=== PATIENT | female | born 1960 | race Caucasian/White ===

== ENCOUNTER → 2016-11-26 | Outpatient (CLI) | payer OTHER ==
[~2016-11-26] MED LIST: ASMANEX HF100 MCG/Ac INH; BENADRYL50 MG PO; FLEXERIL10 MG PO; FLOVENT 110 M110 MCG INH; HYDROCODONE BIT1 T11 PO; INCRUSE EL62.5 MCG/A IH; LEVAQUIN750 M1 PO; LEVOFLOXACIN500 MG PO; MOTRIN600 MG PO; MOTRIN800 MG PO; NKHM; NKHM PO; OXYGEN NAS; PREDNICOT20 MG PO; PREDNISONE10 MG PO; PREDNISONE20 M1 PO; PREDNISONE50 MG PO; SPIRIVA -- 3018 MCG PO; TESSALON PERLE200 MG PO; TYLENOL W/CODEI1 TA2 PO; VENTOLIN H0.09 MG/AC INH; VENTOLIN0.09 MG/AC INH; VIBRAMYCIN100 MG PO; VITAMIN D1000 IU PO; ZITHROMAX Z PA250 MG PO
== END | disposition home or self-care (01) ==
LOC: CARD 07:22
DX: I34.0 Nonrheumatic mitral (valve) insufficiency (principal)

== ENCOUNTER → 2016-12-22 | Outpatient (CLI) | payer OTHER | END | disposition home or self-care (01) | LOC: LAB 09:02 | DX: J44.9 Chronic obstructive pulmonary disease, unspecified (principal) ==

== ENCOUNTER 2017-01-08 16:38 | Emergency (ER) | payer OTHER ==
[~2017-01-08] VITALS: Ht 157.4 cm; Wt 55.8 kg
[2017-01-08 16:47] VITALS: BP 138/86
[2017-01-08] MEDS ORDERED: ANORO ELLIPTA1 POW IH (16:48)
[2017-01-08] MEDS ORDERED: CYCLOBENZAPRINE10 MG PO (18:02)
[2017-01-08] MEDS ORDERED: PREDNISONE10 MG PO (18:02)
== END 2017-01-08 18:11 | disposition home or self-care (01) ==
LOC: ED 16:38
DX: S16.1XXA Strain of muscle, fascia and tendon at neck level, initial encounter (principal); R51 Headache; F17.200 Nicotine dependence, unspecified, uncomplicated; Z88.1 Allergy status to other antibiotic agents; Z90.49 Acquired absence of other specified parts of digestive tract; V49.9XXA Car occupant (driver) (passenger) injured in unspecified traffic accident, initial encounter; Y93.89 Activity, other specified; Y92.413 State road as the place of occurrence of the external cause; Y99.9 Unspecified external cause status

== ENCOUNTER 2017-08-20 00:47 | Emergency (ER) | payer OTHER ==
[~2017-08-20] VITALS: Ht 157.4 cm; Wt 55.8 kg
[~2017-08-20 00:47] MED LIST changes: +ANORO ELLIPTA1 POW IH; +CYCLOBENZAPRINE10 MG PO
[2017-08-20 00:55] VITALS: BP 132/86
[2017-08-20] MEDS ORDERED: PREDNISONE50 MG PO (01:24)
[2017-08-20] MEDS ORDERED: LEVAQUIN750 M1 PO (01:24)
== END 2017-08-20 01:27 | disposition home or self-care (01) ==
LOC: ED 00:47
DX: J44.1 Chronic obstructive pulmonary disease with (acute) exacerbation (principal); F17.200 Nicotine dependence, unspecified, uncomplicated; Z88.1 Allergy status to other antibiotic agents; Z88.6 Allergy status to analgesic agent; Z79.899 Other long term (current) drug therapy

== ENCOUNTER 2017-10-12 16:09 | Emergency (ER) | payer OTHER ==
[~2017-10-12] VITALS: Ht 157.4 cm; Wt 57.2 kg
[2017-10-12 16:15] VITALS: BP 154/71
== END 2017-10-12 17:53 | disposition home or self-care (01) ==
LOC: ED 16:09
DX: M94.0 Chondrocostal junction syndrome [Tietze] (principal); F17.200 Nicotine dependence, unspecified, uncomplicated; Z88.1 Allergy status to other antibiotic agents; Z88.6 Allergy status to analgesic agent; Z79.899 Other long term (current) drug therapy

== ENCOUNTER 2018-03-13 20:31 | Emergency (ER) | payer OTHER ==
[~2018-03-13] VITALS: Wt 57.2 kg
[2018-03-13 20:37] VITALS: BP 126/69
[2018-03-13] MEDS ORDERED: ANAPROX DS550 MG PO (21:27)
== END 2018-03-13 21:34 | disposition home or self-care (01) ==
LOC: ED 20:31
DX: S92.512A Displaced fracture of proximal phalanx of left lesser toe(s), initial encounter for closed fracture (principal); F17.200 Nicotine dependence, unspecified, uncomplicated; Z88.1 Allergy status to other antibiotic agents; Z88.6 Allergy status to analgesic agent; Z79.899 Other long term (current) drug therapy; W55.12XA Struck by horse, initial encounter; Y93.01 Activity, walking, marching and hiking; Y92.89 Other specified places as the place of occurrence of the external cause; Y99.8 Other external cause status

== ENCOUNTER 2018-07-17 14:32 | Inpatient (IN) | payer OTHER ==
[~2018-07-17] VITALS: Ht 154.9 cm; Wt 51.0 kg
--- NOTE | ~2018-07-17 | EKG ---
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
--- NOTE | ~2018-07-17 | PR ---
[place], [place] PROGRESS NOTE NAME: JACKY AGUILA UNIT #: [id number] ROOM: 408 DOCTOR: BALBINA RICE MD,MAGUI BIRTHDATE: [birth year] DOS: 07/19/2018 PULMONARY PROGRESS NOTE SUBJECTIVE: The patient noted comfortable at this time, resting on the bed. She was noticed with continued improvement in the respiratory symptoms progressively. She denies symptoms of fever or chills. She denies symptoms of hemoptysis, nausea, vomiting, or diarrhea. OBJECTIVE: VITAL SIGNS: The vital signs of the patient, which have been recorded shows the temperature noted as normal, the respiratory rate of the patient recorded as 20, heart rate is 71, and blood pressure is 93/57. Pulse ox saturation on room air was 94% saturation. HEENT: On examination, head was atraumatic. Eyes nonicterus. NECK: Supple. CARDIOVASCULAR SYSTEM: S1, S2 is audible. LUNGS: Without any wheeze or crackles. ABDOMEN: Soft, nontender. EXTREMITIES: No edema. LABORATORY DATA: CBC, WBC count is 18.6. IMPRESSION: Leukocytosis, most likely due to corticosteroids; resolving acute exacerbation of chronic obstructive pulmonary disease, and acute tracheobronchitis progressively. PLAN OF TREATMENT: Consideration for home discharge from the pulmonary standpoint. Outpatient followup to be established post-discharge. She missed her previous appointment. She was not seen in the office for the past several months. MAGUI MORTENSEN MD CM:PNTRANS [id number] MAGUI RICE MD 07/20/18 0148 interface
--- NOTE | ~2018-07-17 | CON ---
[place], [place] REPORT OF CONSULTATION NAME: JACKY AGUILA UNIT #: [id number] ROOM: 408 DOCTOR: BALBINA RICE MDMAGUI BIRTHDATE: [birth year] DOS: 07/18/2018 PULMONARY CONSULTATION, EVALUATION AND MANAGEMENT REASON FOR CONSULTATION: For assessment of COPD. HISTORY OF PRESENT ILLNESS: This is a 58-year-old white female patient with past medical history of COPD. The patient presented to the hospital as she had developed increased respiratory symptom for the past 3 days. Her symptoms started nasal congestion, postnasal drainage. Later, she developed significant cough with chest congestion with sputum expectoration, which is described in different colors including the face. Shortness of breath is also associated with the symptoms and wheezing. Tightness in the chest reported with symptoms of chest pain. She has been assessed in the Emergency Room and hospitalized on 07/17/2018 for the medical management exacerbation of COPD. The patient stated her symptoms have been improving gradually since hospitalization. REVIEW OF SYSTEMS: CONSTITUTIONAL: Complaining of fatigue and fever, but there were no chills. EYES: Denies any burning, redness, or tenderness. EARS, NOSE, THROAT SYMPTOMS: Denies sore throat, hoarseness, otalgia, postnasal drainage or epistaxis. CARDIOVASCULAR: Denies anginal pain, edema or pain in the lower extremities. GASTROINTESTINAL: The patient reported symptoms of nausea, vomiting one time at home, which has resolved. There were no symptoms of hematemesis, melena, hematochezia, or dysphagia reported. GENITOURINARY: No dysuria, suprapubic pain, or hematuria. MUSCULOSKELETAL: No acute joint pain, redness, or tenderness. SKIN: Denies lesions or rashes. CENTRAL NERVOUS SYSTEM: No dizziness, headache, diplopia, or syncopal episodes. Remaining systems were reviewed. They were noted all negative. PAST MEDICAL HISTORY: This patient was known with history of: 1. COPD. 2. Chronic hypoxic respiratory failure, use of oxygen 2 liter nasal cannula. PAST SURGICAL HISTORY: Noted for; 1. Skin graft. 2. . 3. Cholecystectomy. 4. Abdominoplasty. SOCIAL HISTORY: The patient lives at home. Denies history of alcohol use or illicit drug use. She has been known with history of tobacco use. FAMILY HISTORY: The patient's father of a suicide. Mother from unknown cancer. HOME MEDICATIONS: Listed to self or Ventolin HFA inhaler, vitamin D, Flexeril [place], [place] REPORT OF CONSULTATION NAME: JACKY AGUILA UNIT #: [id number] ROOM: [facility] DOCTOR: BALBINA RICE MD,MAGUI BIRTHDATE: [birth year] and naproxen. DRUG ALLERGIES: THE PATIENT REPORTED ALLERGIES TO: 1. AMOXICILLIN. 2. IBUPROFEN. PHYSICAL EXAMINATION: GENERAL: This is a 58-year-old white female who has been noted currently awake and alert at this time without any acute distress. VITAL SIGNS: Height were recorded as 5 feet 1 inch, weight of 112 pounds, BMI 21 on admission. Vital signs are normal temperature. The respiratory rate of 16-20, heart rate of 62-87, blood pressure 86/50 noted admission, later on 96/52. Pulse oxygen saturation on 3 liters 91% saturation on room air and on admission 89% saturation. HEENT: Head was atraumatic. Eyes nonicterus. CARDIOVASCULAR SYSTEM: S1, S2 audible. LUNGS: Moderate general reduction in breath sounds with expiratory wheezing without any crackles. ABDOMEN: Soft, nontender. Bowel sounds present. EXTREMITIES: Without any acute edema. VISIBLE SKIN: No lesions or rashes. MUSCULOSKELETAL: Without acute deformities. CENTRAL NERVOUS SYSTEM: Cranial nerves 2-12 intact. LABORATORY DATA: CBC yesterday on admission of WBC count 14.7, remaining CBC normal. CBC this morning: WBC count decreased to 11.1, hemoglobin 11.0, hematocrit 35.6. The PT/INR was noted as normal. CMP this morning; normal BUN and creatinine. Potassium 3.4, CO2 of 34 on admission. BMP this morning CO2 32. Remaining electrolytes were normal. Troponin was normal yesterday. Chest x-ray one-view that was done reviewed from the faxed images somewhat hyperinflated lungs. The patient was noted without any acute visible pulmonary infiltration. IMPRESSION: 1. The patient will be currently admitted to the hospital with history of chronic hypoxic respiratory failure with acute exacerbation of chronic obstructive pulmonary disease with possibility of viral infection to be considered. 2. History of nicotine abuse. PLAN OF MANAGEMENT: The patient is receiving Solu-Medrol at this time b.i.d. dose was noted 40 mg and bronchodilators. Continue antibiotics. Monitor respiratory status. Obtain a PA lateral chest x-ray for further clear picture of the lateral view of the lower lobe to exclude any pneumonia. Usual care. All other supportive, plan of management and therapies. Other additional treatment changes will be ordered after the assessment of any new lab data and chest x-ray as necessary. Continue oxygen supplementation, maintain oxygen saturation 90% or greater. Ordered the sputum for Gram stain and culture as well. [place], [place] REPORT OF CONSULTATION NAME: JACKY AGUILA UNIT #: [id number] ROOM: [facility] DOCTOR: BALBINA RICE MD,MAGUI BIRTHDATE: [birth year] Thanks for allowing me to participate in the care of this patient. MAGUI MORTENSEN MD CM:CONSTR:REPORT OF CONSULTATION 0840 07/18/18 1138 interface
[2018-07-17 14:32] VITALS: BP 99/53
[~2018-07-17 14:32] MED LIST changes: +ANAPROX DS550 MG PO
[2018-07-17 15:07] LABS: BASO # 0.1 10*3/uL (0.0-0.1); BASO % 0.3 % (0.0-1.0); EOS # 0.1 10*3/uL (0.0-0.4); EOS % 0.3 % (1.0-4.0); HEMATOCRIT 43.7 % (37.0-47.0); HEMOGLOBIN 14.1 g/dl (12.0-16.0); LYMPH # 1.3 10*3/uL (1.3-4.4); LYMPH % 8.7 % (27.0-41.0); MEAN CELL VOLUME 93.8 fl (81.0-99.0); MEAN CORPUSCULAR HGB 30.3 pg (27.0-31.0); MEAN CORPUSCULAR HGB CONC 32.3 g/dl (33.0-37.0); MONO # 1.3 10*3/uL (0.1-1.0); MONO % 8.5 % (3.0-9.0); NEUT % 81.9 % (47.0-73.0); PLATELET COUNT AUTOMATED 381 10*3/uL (130-400); RED BLOOD COUNT 4.66 10*6/uL (4.10-5.10); RED CELL DISTRI WIDTH 13.2 % (0-14.5); WHITE BLOOD COUNT 14.7 10*3/uL (4.8-10.8)
[2018-07-17 15:22] LABS: ALBUMIN 2.9 gm/dl (3.1-4.5); ALKALINE PHOSPHATASE 334 U/L (45-117); BUN 8 mg/dl (7-24); CHLORIDE 96 mmol/L (98-107); CREATININE 0.73 mg/dL (0.55-1.02); POTASSIUM 3.4 mmol/L (3.5-5.1); SGOT/AST 60 IU/L (3-35); SGPT/ALT 64 U/L (12-78); SODIUM 137 mmol/L (136-145)
[2018-07-17 15:23] LABS: TROPONIN I < 0.015 ng/ml (<0.045)
[2018-07-17] MEDS ORDERED: VIBRAMYCIN100 MG PO (16:23)
[2018-07-17] MEDS ORDERED: MECLIZINE HCL25 M2 PO (16:23)
[2018-07-17] MEDS ORDERED: DELTASONE20 M1 PO (16:23)
[2018-07-17 16:49] VITALS: BP 86/50
[2018-07-17 16:57] VITALS: BP 99/63
[2018-07-17 17:57] VITALS: BP 99/60
[2018-07-17 20:00] VITALS: BP 110/52
[2018-07-18] VITALS: BP 96/52
[2018-07-18 06:34] LABS: MEAN CORPUSCULAR HGB CONC 30.9 g/dl (33.0-37.0); MEAN PLATELET VOLUME 9.6 fl (9.6-12.3); PLATELET COUNT AUTOMATED 319 10*3/uL (130-400); RED BLOOD COUNT 3.67 10*6/uL (4.10-5.10); RED CELL DISTRI WIDTH 13.2 % (0-14.5); WHITE BLOOD COUNT 11.1 10*3/uL (4.8-10.8)
[2018-07-18 06:42] LABS: HEMATOCRIT 35.6 % (37.0-47.0)
[2018-07-18 06:55] LABS: BUN 7 mg/dl (7-24); CHLORIDE 103 mmol/L (98-107); CHOLESTEROL 146 mg/dL (<200); CREATININE 0.57 mg/dL (0.55-1.02); PHOSPHOROUS 3.1 mg/dL (2.5-4.9); PLATELET SUFFICIENCY NORMAL (NORMAL); POTASSIUM 3.7 mmol/L (3.5-5.1); SODIUM 142 mmol/L (136-145); TOTAL CELLS COUNTED 100 #CELLS; TRIGLYCERIDES 59 mg/dl (<150); VLDL CHOLESTEROL 12 mg/dL (6-40)
[2018-07-18 07:03] LABS: HDL CHOLESTEROL 49 mg/dl (40-60); LDL CHOLESTEROL 85 mg/dL (9-159)
[2018-07-18 08:00] VITALS: BP 110/58
[2018-07-18 11:03] LABS: VITAMIN D, 25-HYDROXY 6.7 ng/mL (30-100)
[2018-07-18 12:00] VITALS: BP 96/52
[2018-07-18 16:00] VITALS: BP 92/48
[2018-07-18 20:00] VITALS: BP 92/51
[2018-07-19] VITALS: BP 96/56
[2018-07-19 06:38] LABS: BASO % 0.1 % (0.0-1.0); HEMATOCRIT 33.5 % (37.0-47.0); HEMOGLOBIN 10.3 g/dl (12.0-16.0); LYMPH # 1.8 10*3/uL (1.3-4.4); LYMPH % 9.6 % (27.0-41.0); MEAN CELL VOLUME 96.3 fl (81.0-99.0); MEAN CORPUSCULAR HGB 29.6 pg (27.0-31.0); MEAN CORPUSCULAR HGB CONC 30.7 g/dl (33.0-37.0); MEAN PLATELET VOLUME 9.3 fl (9.6-12.3); MONO # 0.9 10*3/uL (0.1-1.0); MONO % 4.9 % (3.0-9.0); NEUT # 15.7 10*3/uL (2.3-7.9); NEUT % 84.6 % (47.0-73.0); PLATELET COUNT AUTOMATED 343 10*3/uL (130-400); RED BLOOD COUNT 3.48 10*6/uL (4.10-5.10); RED CELL DISTRI WIDTH 13.6 % (0-14.5); WHITE BLOOD COUNT 18.6 10*3/uL (4.8-10.8)
[2018-07-19 12:00] VITALS: BP 93/57
[2018-07-19] MEDS ORDERED: LEVOFLOXACIN500 MG PO (12:55)
[2018-07-19] MEDS ORDERED: PREDNISONE10 MG PO (12:55)
[2018-07-19] MEDS ORDERED: VITAMIN D50000 UNIT PO (12:55)
== END 2018-07-19 13:22 | disposition home or self-care (01) | DRG 871 ==
LOC: ED 14:32 → EDHOLD 16:29 → 4E 16:29
PROVIDERS: Internal Medicine; Physician Assistant; Student in an Organized Health Care Education/Training Program
DX: A41.9 Sepsis, unspecified organism (principal); J18.9 Pneumonia, unspecified organism; J44.0 Chronic obstructive pulmonary disease with (acute) lower respiratory infection; E87.3 Alkalosis; E44.0 Moderate protein-calorie malnutrition; J96.11 Chronic respiratory failure with hypoxia; J44.1 Chronic obstructive pulmonary disease with (acute) exacerbation; E87.6 Hypokalemia; E83.41 Hypermagnesemia; J44.9 Chronic obstructive pulmonary disease, unspecified; R74.0 Nonspecific elevation of levels of transaminase and lactic acid dehydrogenase [LDH]; Z88.1 Allergy status to other antibiotic agents; Z88.9 Allergy status to unspecified drugs, medicaments and biological substances; Z90.49 Acquired absence of other specified parts of digestive tract; Z98.891 History of uterine scar from previous surgery; Z98.51 Tubal ligation status; Z80.8 Family history of malignant neoplasm of other organs or systems; Z83.3 Family history of diabetes mellitus; Z71.6 Tobacco abuse counseling; Z87.81 Personal history of (healed) traumatic fracture; Z68.21 Body mass index [BMI] 21.0-21.9, adult

== ENCOUNTER 2018-10-13 18:06 | Inpatient (IN) | payer OTHER ==
[~2018-10-13] VITALS: Ht 157.5 cm; Wt 52.8 kg
--- NOTE | ~2018-10-13 | PR ---
[place], [place] PROGRESS NOTE NAME: JACKY AGUILA UNIT #: [id number] ROOM: 503 DOCTOR: BALBINA RICE MD,MAGUI BIRTHDATE: [birth year] DOS: 10/15/2018 SUBJECTIVE: She continued to do well. The patient stated ambulated and not using oxygen supplementation. Respiratory symptoms have improved significantly including cough, wheezing and shortness of breath. Denies symptoms of chest pain. OBJECTIVE: VITAL SIGNS: Normal temperature, respiratory rate 20, heart rate of 89, and blood pressure 128/62. The pulse ox saturation on room air 92% saturation at rest was recorded. HEENT: Head was atraumatic. Eyes nonicterus. NECK: Supple. CARDIOVASCULAR: S1, S2 is audible. LUNGS: The patient was noted without any wheezing or crackles at the present time. ABDOMEN: Soft and nontender. Bowel sounds present. EXTREMITIES: Without any acute edema. IMPRESSION: The patient who has been currently noted with progressive resolution of acute exacerbation of chronic obstructive pulmonary disease and acute bronchitis of the patient's current medical management in the last 24 hours. PLAN OF MANAGEMENT: The patient could be discharged home for the current medical management, plan of care at this time. The leukopenia, which was noted has resolved, currently noted with the leukocytosis actually. Nicotine dependence. Plan of treatment, abstinence tobacco use. The patient was recommended outpatient followup to be scheduled. Tapering dose of prednisone, oral antibiotic could be used. MAGUI MORTENSEN MD CM:PNTRANS [id number] MAGUI RICE MD 10/21/18 0855 interface
--- NOTE | ~2018-10-13 | EKG ---
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
--- NOTE | ~2018-10-13 | CON ---
[place], [place] REPORT OF CONSULTATION NAME: JACKY AGUILA UNIT #: [id number] ROOM: 503 DOCTOR: BALBINA RICE MDMAGUI BIRTHDATE: [birth year] DOS: 10/14/2018 PULMONARY CONSULTATION EVALUATION AND MANAGEMENT CONSULTATION REQUESTED BY: Hospitalist Service. REASON FOR CONSULTATION: Assessment of current acute exacerbation of chronic obstructive pulmonary disease. HISTORY OF PRESENT ILLNESS: A 58-year-old white female patient with known history of COPD which were noted as severe with chronic hypoxic respiratory failure, use of oxygen supplementation 3 liters nasal cannula. She presented to the hospital and admitted to the hospital on 10/13/2018. She started with having symptoms of cough, chest congestion for the past 3 to 4 days. The symptoms have been noted gradually progression. The patient started using nebq-[id number]-xunjyvp medication of Mucinex, stating taking her other medication. She stated that she has not been smoking cigarettes. Cough has been noted with excessive chest congestion with minimal sputum expectoration, tightness in the chest were reported with increased wheezing, shortness of breath occurring with pdni-du-zndveehv exertional activities. She has been admitted to the hospital and currently being managed for acute exacerbation of COPD, has been receiving intravenous steroids, nebulized bronchodilators and oxygen supplementation as well as the antibiotics. She has reported partial reduction in respiratory symptoms since hospitalization. REVIEW OF SYSTEMS: CONSTITUTIONAL: Fatigue and tiredness reported. Denies symptoms of fever or chills. EYES: Denies burning, redness, or tenderness. EARS, NOSE, THROAT SYMPTOMS: Denies sore throat, hoarseness, otalgia, postnasal drainage or epistaxis. CARDIOVASCULAR: Denies angina pain, edema, pain of the lower extremity. GASTROINTESTINAL: Denies dysphagia, nausea, vomiting, diarrhea, abdominal pain, hematemesis, melena, or hematochezia. GENITOURINARY: Denies dysuria, suprapubic pain, urinary incontinence, or flank pain. MUSCULOSKELETAL: No acute joint pain, redness, or tenderness. SKIN: No lesions or rashes reported. CENTRAL NERVOUS SYSTEM: No dizziness, headache, diplopia, syncopal episode. Remaining systems were reviewed. They were noted all negative. PAST MEDICAL HISTORY: 1. Advanced COPD. 2. Chronic hypoxic respiratory failure, use of oxygen supplementation. 3. History of nicotine dependence. PAST SURGICAL HISTORY: 1. Skin graft from valle. 2. . [place], [place] REPORT OF CONSULTATION NAME: JACKY AGUILA UNIT #: [id number] ROOM: [facility] DOCTOR: BALBINA RICE MDMAGUI BIRTHDATE: [birth year] 3. Cholecystectomy. 4. Abdominoplasty. SOCIAL HISTORY: She lives at home. Denies history of alcohol use, illicit drug use. Tobacco use, started teenager, smoked about half to a pack of cigarettes per day, stating nonsmoker since 2017. Denies any alcohol or illicit drug use. FAMILY HISTORY: The patient's father from suicide. Mother , complications of unknown cancer. MEDICATIONS: The medications which has been administered this morning as the use of Lovenox for DVT prophylaxis, Solu-Medrol 60 mg b.i.d., Protonix 40 mg daily, Mucinex 1200 mg p.o. b.i.d., nicotine replacement patches 14 mg to the skin daily, DuoNeb q.4 hours, Zithromax and IV Rocephin use. Other p.o. medication were also used. DRUG ALLERGIES: REPORTED ALLERGIES TO: AMOXICILLIN AND IBUPROFEN BOTH CAUSING HIVES AND OTHER GI ISSUES. PHYSICAL EXAMINATION: GENERAL: This is a 58-year-old white female currently noted sitting on the bed without any distress. Height of 5 feet 2 inches, weight 116 pounds, BMI 21.3. VITAL SIGNS: Temperature normal since admission last 24 hours, respiratory rate range between 24-20, heart rate 74-107, blood pressure of 88/54-101/49. Pulse oxygen saturation recorded on 3 liters nasal cannula 95% saturation. HEENT: Head was atraumatic. Eyes nonicterus. NECK: Supple. CARDIOVASCULAR: S1, S2 audible. LUNGS: Noted moderate severe reduction in breath sounds bilaterally with diffuse expiratory wheezing without any crackles. ABDOMEN: Flat, soft, nontender. Bowel sounds present. EXTREMITIES: Without edema, clubbing, cyanosis. MUSCULOSKELETAL: Without any acute deformities. CENTRAL NERVOUS SYSTEM: The patient's cranial nerves 2-12 intact. LABORATORY DATA: CBC that was done yesterday was noted as normal CBC. The lactic acid yesterday noted normal. CMP that was done yesterday noted normal BUN and creatinine. CO2 of 35. AST 84, ALT 110, alkaline phosphatase at 283. Influenza A and B, nasal washing antigens were negative. CBC on 10/14/2018. The patient's WBC count 3.9, hemoglobin and hematocrit normal, platelet count were normal. PT and PTT were normal. The CMP repeated again this morning as AST, ALT and alkaline phosphatase are noted all abnormals at this time. One view chest x-ray that was done on admission was noted with changes, hyperinflation, chronic obstructive pulmonary disease without any acute visible pulmonary infiltrates. IMPRESSION: 1. The patient will be currently admitted to the hospital noted with acute exacerbation of chronic obstructive pulmonary disease, acute bronchitis, may be [place], [place] REPORT OF CONSULTATION NAME: JACKY AGUILA UNIT #: [id number] ROOM: [facility] DOCTOR: BALBINA RICE MD,MAGUI BIRTHDATE: [birth year] viral in origin with mild leukopenia as well as a trigger. 2. History of tobacco use, stated none tobacco use at this time for the past couple of months or so. 3. Leukopenia, most likely secondary to current acute infection etiology. 4. Abnormal LFTs. At this time, the etiology was unclear. Rule out alpha-1 antitrypsin deficiency as an outpatient assessment. PLAN OF MANAGEMENT: Continuation of the current dose of corticosteroids as administered. Continue bronchodilators and antibiotic. Obtain the sputum for Gram stain and culture as well. Continue Mucinex. Abstinence of tobacco use, the patient's counseling was done. Monitor respiratory status to make any additional change in the treatment. Discontinue antibiotic for the patient if the culture would be noted negative. Ordered a respiratory virus profile. Thank you for allowing me to participate in the care of this patient. MAGUI MORTENSEN MD CM:CONSTR:REPORT OF CONSULTATION 1147 10/15/18 0014 interface
[~2018-10-13 18:06] MED LIST changes: +DELTASONE20 M1 PO; +MECLIZINE HCL25 M2 PO; +VITAMIN D50000 UNIT PO
[2018-10-13 18:09] VITALS: BP 130/75
[2018-10-13 18:35] LABS: BASO % 0.6 % (0.0-1.0); EOS % 0.5 % (1.0-4.0); HEMATOCRIT 47.5 % (37.0-47.0); HEMOGLOBIN 15.2 g/dl (12.0-16.0); LYMPH # 1.3 10*3/uL (1.3-4.4); LYMPH % 20.8 % (27.0-41.0); MEAN CORPUSCULAR HGB 30.4 pg (27.0-31.0); MEAN PLATELET VOLUME 8.7 fl (9.6-12.3); MONO # 0.7 10*3/uL (0.1-1.0); MONO % 11.2 % (3.0-9.0); NEUT # 4.3 10*3/uL (2.3-7.9); NEUT % 66.7 % (47.0-73.0); PLATELET COUNT AUTOMATED 308 10*3/uL (130-400); RED CELL DISTRI WIDTH 13.6 % (0-14.5); WHITE BLOOD COUNT 6.4 10*3/uL (4.8-10.8)
[2018-10-13 18:55] LABS: ALBUMIN 3.3 gm/dl (3.1-4.5); ALKALINE PHOSPHATASE 283 U/L (45-117); BUN 7 mg/dl (7-24); CHLORIDE 95 mmol/L (98-107); CREATININE 0.81 mg/dL (0.55-1.02); POTASSIUM 4.4 mmol/L (3.5-5.1); SGOT/AST 84 IU/L (3-35); SGPT/ALT 110 U/L (12-78); SODIUM 136 mmol/L (136-145); TOTAL PROTEIN 7.9 gm/dL (6.4-8.2)
[2018-10-13 18:59] LABS: TROPONIN I < 0.015 ng/ml (<0.045)
--- NOTE | 2018-10-13 19:00 | NUR ---
NURSE TO NURSE REPORT TAKEN FROM ELIAZAR ALCANTAR. PATIENT ALERT/ORIENTED IN EXAM ROOM.
[2018-10-13 20:00] VITALS: BP 101/49
[2018-10-13 20:15] VITALS: BP 101/49
--- NOTE | 2018-10-13 20:15 | NUR ---
A 58, admitted to , under the services of ZOË Ferreira DO with a diagnosis of SEPSIS; PNEUMONITIS. Chief complaint is SOB AT HOME; COUGH; SMOKES 1/2 PPD; 02 DEPENDENT 3 LITERS. Patient arrived via stretcher from ER. Monitor applied. Initial assessment completed. Vital signs taken and recorded. ZOË FERREIRA DO notified of admission to the unit. Orders received. See assessment for past medical history, medications and allergies. Patient and/or family oriented to unit. [facility] policy reviewed. Clothing/patient valuable form completed. ABNER BAEZ
--- NOTE | 2018-10-13 20:25 | NUR ---
DR. SILVA HERE TO SEE PT. TO EXAMINE & DISCUSS PLAN OF CARE. PT. VERBALIZES UNDERSTANDING. PRESENT.
--- NOTE | 2018-10-13 21:19 | NUR ---
CONSULTED DR. MORTENSEN; WILL SEE PT. TOMORROW.
[2018-10-13] MEDS ORDERED: STIOLTO RESPIMAT4 GM INH (22:38)
[2018-10-14] VITALS (8 sets, daily range): BP systolic 80–102; BP diastolic 47–68
--- NOTE | 2018-10-14 00:11 | NUR ---
CALLED DR. SAINZ REGARDING PATIENT'S BLOOD PRESSURE; SEE VITAL SIGNS.
--- NOTE | 2018-10-14 00:35 | NUR ---
DR. SILVA ON FLOOR; ORDER TO RECHECK BLOOD PRESSURE IN ONE HOUR.
--- NOTE | 2018-10-14 04:00 | NUR ---
RECHECKED BLOOD PRESSURE; SEE VITAL SIGNS. DR. SAINZ MADE AWARE. PT. RESTING QUIETLY; VOICES NO C/O. CALL LIGHT WITHIN REACH.
--- NOTE | 2018-10-14 05:50 | NUR ---
RESTING IN BED WITH EYES CLOSED. AUDIBLY WHEEZY; PULSE OX 94%. PT. VOICES NO C/O AT THIS TIME. WILL CONTINUE TO MONITOR. CALL LIGHT WITHIN REACH.
[2018-10-14 06:10] LABS: BASO % 0.3 % (0.0-1.0); LYMPH # 0.8 10*3/uL (1.3-4.4); LYMPH % 19.7 % (27.0-41.0); MEAN CELL VOLUME 96.3 fl (81.0-99.0); MEAN CORPUSCULAR HGB 30.1 pg (27.0-31.0); MEAN CORPUSCULAR HGB CONC 31.3 g/dl (33.0-37.0); MEAN PLATELET VOLUME 8.9 fl (9.6-12.3); MONO # 0.1 10*3/uL (0.1-1.0); MONO % 2.1 % (3.0-9.0); NEUT % 77.6 % (47.0-73.0); PLATELET COUNT AUTOMATED 234 10*3/uL (130-400); RED BLOOD COUNT 4.05 10*6/uL (4.10-5.10); RED CELL DISTRI WIDTH 13.4 % (0-14.5); WHITE BLOOD COUNT 3.9 10*3/uL (4.8-10.8)
[2018-10-14 06:18] LABS: HEMOGLOBIN 12.2 g/dl (12.0-16.0)
[2018-10-14 06:31] LABS: ALBUMIN 2.6 gm/dl (3.1-4.5); BUN 9 mg/dl (7-24); CHLORIDE 103 mmol/L (98-107); POTASSIUM 4.3 mmol/L (3.5-5.1); SGOT/AST 55 IU/L (3-35); SGPT/ALT 86 U/L (12-78); SODIUM 138 mmol/L (136-145)
[2018-10-14 06:32] LABS: ACT PARTIAL THROMBO TIME 26.7 SECONDS (20.8-31.5); INTERNATIONAL NORM RATIO 0.9 (2.0-3.5)
[2018-10-14 06:42] LABS: ALKALINE PHOSPHATASE 223 U/L (45-117); FREE T4 1.25 ng/dl (0.76-1.46); THYROID STIM HORMONE (HS) 0.228 uIU/ml (0.358-4.75); TOTAL PROTEIN 6.2 gm/dL (6.4-8.2)
--- NOTE | 2018-10-14 07:59 | NUR ---
PHYSICAL THERAPY Nursing screen received. PT orders also received. Thank you. Aida Knight,PT
--- NOTE | 2018-10-14 08:00 | NUR ---
DR WAGGONER NOTIFIED OF BP. NO NEW ORDERS
--- NOTE | 2018-10-14 09:00 | NUR ---
Boat Patcher Plastic in to talk to patient. Patient states lives at home with her . There are 15 steps in the home. Physician: Family medicine in [place] Pharmacy: [facility] Home health services: none Patient's level of ADLs: INDEPENDENT Patient has working utilities: yes DME: O2 @ 3L [place] , O2 supplier [facility] Follow-up physician's appointment after d/c: will be made by the hospitalist nurse director upon discharge Does patient want to access PORTAL?: no Discharge plan discussed with patient. She lives at home with her . She is independent in her ADLs and ambulation. Discussed home health care services and she denies any home needs at this time. When medically stable she will be discharged to home. JESSICA AMEZQUITA
--- NOTE | 2018-10-14 14:01 | NUR ---
PHYSICAL THERAPY PAtient reports she has no PT skills/needs. PAtient reportd she is 100 % (I0 functional mobility. PAtient Requests d/c PT orders. Thank you for this referral. Aida Knight,PT
--- NOTE | 2018-10-14 15:34 | NUR ---
Nursing screen received and chart review completed. Patient reports to PT when she refused evaluation, that she is independent in all activites and does not require any therapy. No further OT indicated at this time. Svetlana Hassan OTR/l
--- NOTE | 2018-10-14 19:20 | NUR ---
REPORT OBTAINED FROM DAY SHIFT RN. INITIAL ASSESSMENT COMPLETED - SEE SHIFT ASSESSMENT SCREEN. PT IS RESTING IN BED AT THIS TIME WITH FAMILY AT THE BEDSIDE. BAG 4 OF 0.9%NS IS RUNNING AT 100mL/HR INTO LEFT AC IV WITH NO PROBLEM. SHE IS NSR ON THE MONITOR WITH A HEART RATE IN THE 90'S. SHE VOICES NO COMPLAINTS OR CONCERNS AT THIS TIME. WILL CONTINUE TO MONITOR PATIENT.
[2018-10-15] VITALS: BP 116/63
--- NOTE | 2018-10-15 04:35 | NUR ---
PT IS LYING AWAKE IN BED AT THIS TIME. SHE DENIES ANY PAIN OR DISCOMFORT. RESPIRATIONS ARE EASY AND NONLABORED ON 3L NC. SHE IS NSR ON THE MONITOR WITH A HEART RATE IN THE 80'S. SHE VOICES NO CONCERNS AT THIS TIME. BED IS LOCKED AND IN THE LOWEST POSITION, CALL LIGHT IS WITHIN REACH. WILL CONTINUE TO MONITOR.
[2018-10-15 06:17] LABS: BASO % 0.1 % (0.0-1.0); HEMOGLOBIN 11.6 g/dl (12.0-16.0); LYMPH # 1.6 10*3/uL (1.3-4.4); LYMPH % 13.2 % (27.0-41.0); MEAN CELL VOLUME 95.9 fl (81.0-99.0); MEAN CORPUSCULAR HGB 30.1 pg (27.0-31.0); MEAN CORPUSCULAR HGB CONC 31.4 g/dl (33.0-37.0); MEAN PLATELET VOLUME 9.4 fl (9.6-12.3); MONO # 0.6 10*3/uL (0.1-1.0); MONO % 5.1 % (3.0-9.0); NEUT # 10.1 10*3/uL (2.3-7.9); NEUT % 81.2 % (47.0-73.0); PLATELET COUNT AUTOMATED 267 10*3/uL (130-400); RED BLOOD COUNT 3.86 10*6/uL (4.10-5.10); RED CELL DISTRI WIDTH 13.8 % (0-14.5); WHITE BLOOD COUNT 12.4 10*3/uL (4.8-10.8)
[2018-10-15 06:51] LABS: BUN 13 mg/dl (7-24); CHLORIDE 106 mmol/L (98-107); CREATININE 0.62 mg/dL (0.55-1.02); POTASSIUM 3.7 mmol/L (3.5-5.1); SODIUM 141 mmol/L (136-145)
[2018-10-15 08:00] VITALS: BP 128/62; BP 128/80
--- NOTE | 2018-10-15 08:18 | NUR ---
PT C/O TIGHTNESS IN FINGERS. PER DR WAGGONER OK TO STOP IVF.
--- NOTE | 2018-10-15 09:00 | NUR ---
Phlebotomy Services Technician in to see patient. No new needs or request at this time. She denies any home needs. When medically stable she will be discharged to home.
[2018-10-15] MEDS ORDERED: AMINOPHYLLIN200 MG PO (11:32)
[2018-10-15] MEDS ORDERED: ZITHROMAX250 MG PO (11:32)
[2018-10-15] MEDS ORDERED: MUCINEX1200 M1 PO (11:32)
[2018-10-15] MEDS ORDERED: PREDNISONE10 MG PO (11:32)
--- NOTE | 2018-10-15 13:48 | NUR ---
PT DISCHARGED AT THIS TIME. IV REMOVED AND PRESSURE DRESSING APPLIED. VERBALIZED UNDERSTANDING OF DISCHARGE INSTRUCTIONS. HEART MONITOR RETURNED TO FLOOR.
[2018-10-19 00:05] LABS: ADENOVIRUS Negative (Negative); INFLUENZA B Negative (Negative); METAPNEUMOVIRUS Negative (Negative); PARAINFLUENZA 1 Negative (Negative); PARAINFLUENZA 2 Negative (Negative); PARAINFLUENZA 3 Negative (Negative); RHINOVIRUS Negative (Negative); RSV A Positive (Negative); RSV B Negative (Negative)
[2018-10-21 08:13] LABS: INFLUENZA A Negative (Negative)
[2018-11-17] MEDS ORDERED: LEVOFLOXACIN500 MG PO (11:58)
[2018-11-23] MEDS ORDERED: OSTERA TABLET1 EACH PO (21:58)
[2018-11-25] MEDS ORDERED: OXYGEN NAS (12:47)
[2018-11-25] MEDS ORDERED: PREDNISONE10 MG PO (12:48)
[2018-11-25] MEDS ORDERED: DOXYCYCLINE100 M3 PO (12:48)
[2019-04-09] MEDS ORDERED: NORCO 5-325 TA1 EACH PO (08:58)
== END 2018-10-15 13:48 | disposition home or self-care (01) | DRG 871 ==
LOC: ED 18:06 → 5E 19:14 → EDHOLD 19:14 → 5E 19:42
PROVIDERS: Family Medicine; Internal Medicine; Internal Medicine Critical Care Medicine; Nurse Practitioner Family; ADMIT Internal Medicine
DX: A41.9 Sepsis, unspecified organism (principal); J18.9 Pneumonia, unspecified organism; J44.1 Chronic obstructive pulmonary disease with (acute) exacerbation; E44.1 Mild protein-calorie malnutrition; J96.11 Chronic respiratory failure with hypoxia; J44.0 Chronic obstructive pulmonary disease with (acute) lower respiratory infection; I95.9 Hypotension, unspecified; R74.0 Nonspecific elevation of levels of transaminase and lactic acid dehydrogenase [LDH]; F17.210 Nicotine dependence, cigarettes, uncomplicated; E55.9 Vitamin D deficiency, unspecified; J20.9 Acute bronchitis, unspecified; R94.5 Abnormal results of liver function studies; R74.8 Abnormal levels of other serum enzymes; E87.8 Other disorders of electrolyte and fluid balance, not elsewhere classified; Z99.81 Dependence on supplemental oxygen; Z88.1 Allergy status to other antibiotic agents; Z88.6 Allergy status to analgesic agent; Z87.81 Personal history of (healed) traumatic fracture; Z90.49 Acquired absence of other specified parts of digestive tract; Z98.891 History of uterine scar from previous surgery; Z98.51 Tubal ligation status; Z83.3 Family history of diabetes mellitus; Z80.0 Family history of malignant neoplasm of digestive organs; Z79.899 Other long term (current) drug therapy; Z71.6 Tobacco abuse counseling; Z68.21 Body mass index [BMI] 21.0-21.9, adult

== ENCOUNTER → 2018-11-06 | Outpatient (CLI) | payer OTHER ==
[~2018-11-06] MED LIST changes: +AMINOPHYLLIN200 MG PO; +CEPHALEXIN500 M1 PO; +DOXYCYCLINE100 M3 PO; +MUCINEX1200 M1 PO; +NORCO 5-325 TA1 EACH PO; +OSTERA TABLET1 EACH PO; +SEPTDS PO; +STIOLTO RESPIMAT4 GM INH; +ZITHROMAX250 MG PO
== END | disposition home or self-care (01) ==
LOC: MAMMO 07:33
DX: Z12.31 Encounter for screening mammogram for malignant neoplasm of breast (principal)

== ENCOUNTER → 2018-12-11 | Outpatient (CLI) | payer OTHER | END | disposition home or self-care (01) | LOC: MAMMO 12:44 | DX: N63.0 Unspecified lump in unspecified breast (principal) ==

== ENCOUNTER 2019-03-06 21:26 | Emergency (ER) | payer OTHER ==
[~2019-03-06] VITALS: Ht 157.4 cm; Wt 51.7 kg
[~2019-03-06 21:26] MED LIST changes: -CEPHALEXIN500 M1 PO; -NORCO 5-325 TA1 EACH PO; -SEPTDS PO
[2019-03-06 21:31] VITALS: BP 148/97
[2019-03-06] MEDS ORDERED: SEPTDS PO (21:58)
[2019-03-06] MEDS ORDERED: CEPHALEXIN500 M1 PO (21:58)
[2019-04-09] MEDS ORDERED: NORCO 5-325 TA1 EACH PO (08:58)
== END 2019-03-06 22:07 | disposition home or self-care (01) ==
LOC: ED 21:26
DX: D23.72 Other benign neoplasm of skin of left lower limb, including hip (principal); F17.200 Nicotine dependence, unspecified, uncomplicated; Z88.1 Allergy status to other antibiotic agents; Z88.8 Allergy status to other drugs, medicaments and biological substances; Z79.899 Other long term (current) drug therapy; Z90.49 Acquired absence of other specified parts of digestive tract

== ENCOUNTER 2019-07-01 18:21 | Inpatient (IN) | payer OTHER ==
[~2019-07-01] VITALS: Ht 157.4 cm; Wt 51.3 kg
--- NOTE | ~2019-07-01 | PR ---
[place], [place] PROGRESS NOTE NAME: JACKY AGUILA UNIT #: [id number] ROOM: 402 DOCTOR: BALBINA RICE MD,MAGUI BIRTHDATE: [birth year] DOS: 07/03/2019 SUBJECTIVE: The patient noted without any acute distress this morning, resting comfortably on the bed. Not reported any symptoms of fever or chills. The coughing has been subsiding. She has been ambulating in the hallway decreased respiratory symptoms. OBJECTIVE: VITAL SIGNS: Normal temperature, respiratory 20, pulse 92, blood pressure 116/62 recorded. Pulse oxygen saturation recorded as 96% saturation at rest on room air. HEENT: Examination shows head was atraumatic. Eyes nonicterus. NECK: Supple. CARDIOVASCULAR: S1, S2 audible. LUNGS: Without any wheezing or crackles at the present time. ABDOMEN: Soft, nontender. IMPRESSION: Progressive resolution and improvement in acute exacerbation of chronic obstructive pulmonary disease, acute tracheobronchitis, history of nicotine abuse. PLAN OF TREATMENT: The patient will be discharged home on tapering prednisone and the antibiotics. Other medical management per primary care physician as well. Outpatient followup suggested post-discharge. MAGUI MORTENSEN MD CM:PNTRANS [id number] MAGUI RICE MD 07/03/19 1707 interface
--- NOTE | ~2019-07-01 | CON ---
[place], [place] REPORT OF CONSULTATION NAME: JACKY AGUILA UNIT #: [id number] ROOM: 402 DOCTOR: BALBINA RICE MDMAGUI BIRTHDATE: [birth year] DOS: 07/02/2019 PULMONARY CONSULTATION, EVALUATION AND MANAGEMENT CONSULTATION REQUESTED BY: Hospitalist service. REASON FOR CONSULTATION: For assessment of acute exacerbation of COPD. HISTORY OF PRESENT ILLNESS: A 59-year-old white female patient with known history of COPD from the past, presented to the Emergency Room. She has been noted sick for about 1 week. She has been noted increased symptoms of shortness of breath with chest congestion and coughing with small amount of sputum expectoration. She was also reported increased wheezing. The patient has tightness in the chest. There were no symptoms of chest pain. She has been assessed in the Emergency Room on 07/01/2019 and hospitalized for medical management of acute exacerbation of chronic obstructive pulmonary disease. This morning, the patient stated reduction of the respiratory symptoms. However, the resolution was noted incomplete. REVIEW OF SYSTEMS: CONSTITUTIONAL SYMPTOMS: Fatigue and tiredness noted without any symptoms of fever or chills. EYES: Denies any burning, redness, or tenderness. EARS, NOSE, THROAT SYMPTOMS: No sore throat, hoarseness, otalgia, postnasal drainage or epistaxis. CARDIOVASCULAR: No angina pain, edema or pain of the lower extremities. GASTROINTESTINAL SYMPTOMS: Denies dysphagia, nausea, vomiting, diarrhea, abdominal pain, hematemesis, melena, or hematochezia. GENITOURINARY SYMPTOMS: No dysuria, suprapubic pain, or hematuria. MUSCULOSKELETAL: Chronic joint pain. SKIN: No lesions or rashes. CENTRAL NERVOUS SYSTEM: The patient was noted intact. Remaining systems were reviewed. They were noted all negative. PAST MEDICAL HISTORY: Known as; 1. COPD. 2. Chronic hypoxic respiratory failure, but currently using oxygen supplementation at that time. 3. Chronic nicotine dependence. PAST SURGICAL HISTORY: Known as; 1. Skin graft from the valle on the skin. 2. . 3. Cholecystectomy. 4. Abdominoplasty. SOCIAL HISTORY: The patient lives at home. Denies alcohol use or illicit drug use. Tobacco use was known since teenager about half a pack of cigarettes per day and smoking cigarettes at this time about 4-5 cigarettes a day, stating that [place], [place] REPORT OF CONSULTATION NAME: JACKY AGUILA UNIT #: [id number] ROOM: 402 DOCTOR: BALBINA RICE MD,MAGUI BIRTHDATE: [birth year] she does not ____ cigarettes when she smokes. FAMILY HISTORY: The patient's father from suicide and mother with complication related to unknown cancer. CURRENT MEDICATIONS: Which has been administered were noted as Solu-Medrol, Lovenox for DVT prophylaxis, Mucinex, Robitussin-DM, nicotine replacement patches, albuterol sulfate, Levaquin, and some other meds. DRUG ALLERGIES: 1. IBUPROFEN. 2. AMOXICILLIN. 3. KEFLEX. PHYSICAL EXAMINATION: GENERAL: This is a 59-year-old female who has been currently sitting comfortably on the bed this morning of assessment. Height of 5 feet 2 inches, weight ____ pounds, BMI 20.7. VITAL SIGNS: For the patient, which are recorded shows a normal temperature, respiratory rate 20, heart rate 92, blood pressure 98/50 - 100/57. The pulse oxygen saturation recorded on 2 liters nasal cannula was 95% saturation. HEENT: Examination shows head was atraumatic. Eyes nonicterus. NECK: Supple. CARDIOVASCULAR: S1, S2 is audible. LUNGS: Noted with decreased breath sounds in the lungs bilaterally, [id number] expiratory wheezing. ABDOMEN: Soft and nontender. Bowel sounds present. EXTREMITIES: The patient noted without any acute edema, clubbing or cyanosis. MUSCULOSKELETAL: Noted without any acute deformities. CENTRAL NERVOUS SYSTEM: Cranial nerves 2-12 intact. LABORATORY DATA: Chest x-ray that was done 1 view in the Emergency Room on 07/01/2019. The patient noted changes of COPD, hyperinflation with increased interstitial markings. CT scan of chest was done previously for the same reason on 11/25/2018, shows a small 4 mm nodule, changes of emphysema. There was interstitial pulmonary fibrosis. BMP that was done on 07/02/2019, BUN normal, creatinine was normal, glucose 179. Phosphorus 2.4. CBC today, white count 11.4, hemoglobin 11.4 and platelet count was normal. Lactic acid yesterday noted at 1.8. Influenza A and B, nasal washing antigens were negative. CBC: WBC count 14.2, hemoglobin and hematocrit was normal. CMP yesterday, normal BUN and creatinine. Potassium was 3.3 and CO2 was 36. IMPRESSION: 1. The patient will be currently admitted to the hospital with history of chronic nicotine use, currently admitted to the hospital. The patient has been treated with acute exacerbation of chronic obstructive pulmonary disease, acute bronchitis. 2. Nicotine dependence. Increased interstitial marking without any evidence of previous pulmonary fibrosis. CT scan of the chest shows 4 mm nodule noted in the lung during 11/2018. [place], [place] REPORT OF CONSULTATION NAME: JACKY AGUILA UNIT #: [id number] ROOM: 402 DOCTOR: BALBINA RICE MD,MAGUI BIRTHDATE: [birth year] PLAN OF MANAGEMENT: CT scan of the chest will be repeated again today to assess the pulmonary nodules without contrast. Continuation of other therapy as in progress. Usual care. No other changes in the treatment will be necessary. MAGUI MORTENSEN MD CM:CONSTR:REPORT OF CONSULTATION 1004 07/02/19 1411 interface
--- NOTE | ~2019-07-01 | EKG ---
[place], [place] ELECTROCARDIOGRAM REPORT NAME: JACKY AGUILA UNIT #: [id number] ROOM: 402 DOCTOR: DONNELL DRAFT REPORT BIRTHDATE: [birth year] [facility] Test Date: 2019-07-01 Test Time: 18:39:41 Pat Name: JACKY AGUILA Department: Room: 402 Gender: F Director Of [employer]s: : 1960 Requested By: MAKENNA LY DNP Order Number: [id number] Reading MD: Dunia Morales Measurements Intervals [place] Rate: 98 P: 96 ME: 123 QRS: 62 QRSD: 87 T: 80 QT: 334 QTc: 427 Interpretive Statements Sinus rhythm Probable lateral infarct, old Compared to ECG 11/23/2018 18:42:42 Myocardial infarct finding now present Ventricular premature complex(es) no longer present Electronically Signed On 07-03-2019 7:38:50 PST by Dunia Morales CM:EKGRPT:ELECTROCARDIOGRAM REPORT [id number] MAKENNA LY DNP EPIPHANY DRAFT REPORT MAKENNA YL DNP
[~2019-07-01 18:21] MED LIST changes: +CEPHALEXIN500 M1 PO; +NORCO 5-325 TA1 EACH PO; +SEPTDS PO
[2019-07-01 18:23] VITALS: BP 121/68
[2019-07-01 18:54] LABS: BASO % 0.3 % (0.0-1.0); EOS # 0.2 10*3/uL (0.0-0.4); EOS % 1.4 % (1.0-4.0); HEMATOCRIT 41.2 % (37.0-47.0); HEMOGLOBIN 13.1 g/dl (12.0-16.0); LYMPH # 2.3 10*3/uL (1.3-4.4); LYMPH % 15.9 % (27.0-41.0); MEAN CELL VOLUME 97.6 fl (81.0-99.0); MEAN CORPUSCULAR HGB CONC 31.8 g/dl (33.0-37.0); MEAN PLATELET VOLUME 9.1 fl (9.6-12.3); MONO # 1.1 10*3/uL (0.1-1.0); NEUT # 10.5 10*3/uL (2.3-7.9); NEUT % 73.8 % (47.0-73.0); PLATELET COUNT AUTOMATED 443 10*3/uL (130-400); RED BLOOD COUNT 4.22 10*6/uL (4.10-5.10); RED CELL DISTRI WIDTH 13.8 % (0-14.5); WHITE BLOOD COUNT 14.2 10*3/uL (4.8-10.8)
[2019-07-01 19:14] LABS: ALBUMIN 2.7 gm/dl (3.1-4.5); ALKALINE PHOSPHATASE 381 U/L (45-117); BUN 8 mg/dl (7-24); CHLORIDE 94 mmol/L (98-107); POTASSIUM 3.3 mmol/L (3.5-5.1); SGOT/AST 42 IU/L (3-35); SGPT/ALT 39 U/L (12-78); SODIUM 137 mmol/L (136-145); TOTAL PROTEIN 7.7 gm/dL (6.4-8.2)
[2019-07-01 19:20] LABS: TROPONIN I < 0.015 ng/ml (<0.045)
[2019-07-01 20:20] VITALS: BP 97/43
--- NOTE | 2019-07-01 20:42 | NUR ---
Time: 2044 A 59 year old FEMALE admitted to 4E under services of JOSE CARRILLO DO. Pt. arrived via stretcher from ER. Chief complaint: CONGESTION. MEHRDAD ESTRADA
[2019-07-01 20:45] VITALS: BP 99/52
--- NOTE | 2019-07-01 20:52 | NUR ---
MED REC COMPLETED WITH PATIENT ALERT AND ORIENTED. AT BEDSIDE. TWO INHALERS SENT HOME WITH SPOUSE
--- NOTE | 2019-07-01 21:03 | NUR ---
DR MORTENSEN AWARE OF CONSULT. NO NEW ORDERS
--- NOTE | 2019-07-01 21:42 | NUR ---
DR CARBAJAL AWARE OF PATIENT REQUESTING A NICOTINE PATCH
[2019-07-02] VITALS: BP 100/57
--- NOTE | 2019-07-02 01:37 | NUR ---
DR CARBAJAL AWARE OF PATIENT REQUESTING SOMETHING FOR COUGHING
[2019-07-02 06:45] LABS: BASO % 0.1 % (0.0-1.0); HEMATOCRIT 36.7 % (37.0-47.0); HEMOGLOBIN 11.4 g/dl (12.0-16.0); LYMPH # 0.8 10*3/uL (1.3-4.4); MEAN CELL VOLUME 97.6 fl (81.0-99.0); MEAN CORPUSCULAR HGB 30.3 pg (27.0-31.0); MEAN CORPUSCULAR HGB CONC 31.1 g/dl (33.0-37.0); MEAN PLATELET VOLUME 9.1 fl (9.6-12.3); MONO # 0.3 10*3/uL (0.1-1.0); MONO % 2.7 % (3.0-9.0); NEUT # 10.2 10*3/uL (2.3-7.9); NEUT % 89.4 % (47.0-73.0); PLATELET COUNT AUTOMATED 400 10*3/uL (130-400); RED BLOOD COUNT 3.76 10*6/uL (4.10-5.10); RED CELL DISTRI WIDTH 13.6 % (0-14.5); WHITE BLOOD COUNT 11.4 10*3/uL (4.8-10.8)
[2019-07-02 07:12] LABS: CHLORIDE 100 mmol/L (98-107); SODIUM 138 mmol/L (136-145)
[2019-07-02 07:20] LABS: BUN 6 mg/dl (7-24); CREATININE 0.75 mg/dL (0.55-1.02); PHOSPHOROUS 2.4 mg/dL (2.5-4.9)
[2019-07-02 08:00] VITALS: BP 98/50
--- NOTE | 2019-07-02 09:00 | NUR ---
Jewel Oliving Machine Operator in to talk to patient. Patient states lives at home with . There are few steps in the home. Physician: angus recinos [facility]: [facility] Home health services: none Patient's level of ADLs: INDEPENDENT Patient has working utilities: all working DME: home oxygen from [employer] worn at Follow-up physician's appointment after d/c: will be made by hospitalist nurse director upon discharge Does patient want to access PORTAL?: no Discharge plan discussed with patient, she is independent in adls and ambulation, has home oxygen from [employer] worn at , she states she will return home when medically stable and denies any home needs, case management will follow. MARY LOU FERRARI
[2019-07-02 12:00] VITALS: BP 100/60
[2019-07-02 16:00] VITALS: BP 110/70
[2019-07-02 20:00] VITALS: BP 102/51
--- NOTE | 2019-07-02 20:00 | NUR ---
24 HOUR CHART CHECK COMPLETE.
[2019-07-03] VITALS: BP 115/59
[2019-07-03 06:29] LABS: HEMATOCRIT 34.7 % (37.0-47.0); MEAN CELL VOLUME 97.2 fl (81.0-99.0); MEAN CORPUSCULAR HGB 30.8 pg (27.0-31.0); MEAN CORPUSCULAR HGB CONC 31.7 g/dl (33.0-37.0); MEAN PLATELET VOLUME 9.1 fl (9.6-12.3); PLATELET COUNT AUTOMATED 498 10*3/uL (130-400); RED BLOOD COUNT 3.57 10*6/uL (4.10-5.10); RED CELL DISTRI WIDTH 14.1 % (0-14.5); WHITE BLOOD COUNT 21.5 10*3/uL (4.8-10.8)
[2019-07-03 06:43] LABS: BUN 10 mg/dl (7-24); CHLORIDE 99 mmol/L (98-107); PHOSPHOROUS 2.7 mg/dL (2.5-4.9); POTASSIUM 3.5 mmol/L (3.5-5.1); SODIUM 138 mmol/L (136-145)
[2019-07-03 06:51] LABS: BASOPHILS 1 % (0-1); TOTAL CELLS COUNTED 100 #CELLS
[2019-07-03 06:52] LABS: PLATELET SUFFICIENCY HIGH (NORMAL)
[2019-07-03 08:00] VITALS: BP 112/62
--- NOTE | 2019-07-03 09:00 | NUR ---
case management visits with patient, she states she will return home when medically stable and denies any home needs, case management will follow
[2019-07-03] MEDS ORDERED: PREDNISONE10 MG PO (11:10)
[2019-07-03] MEDS ORDERED: LEVAQUIN500 M2 PO (11:10)
--- NOTE | 2019-07-03 12:21 | NUR ---
Discharge instructions reviewed with patient/family. Patient receptive and verbalizes understanding. Follow-up care arranged. Written instructions given to patient/family. ANGY ELI
== END 2019-07-03 12:21 | disposition home or self-care (01) | DRG 720 ==
LOC: ED 18:21 → EDHOLD 19:45 → 4E 19:45
PROVIDERS: Nurse Practitioner Family; Student in an Organized Health Care Education/Training Program; ADMIT Family Medicine
DX: A41.9 Sepsis, unspecified organism (principal); R65.20 Severe sepsis without septic shock; J18.9 Pneumonia, unspecified organism; J44.1 Chronic obstructive pulmonary disease with (acute) exacerbation; E87.6 Hypokalemia; E43 Unspecified severe protein-calorie malnutrition; D47.3 Essential (hemorrhagic) thrombocythemia; E87.8 Other disorders of electrolyte and fluid balance, not elsewhere classified; E87.3 Alkalosis; R73.9 Hyperglycemia, unspecified; J20.9 Acute bronchitis, unspecified; R74.0 Nonspecific elevation of levels of transaminase and lactic acid dehydrogenase [LDH]; R74.8 Abnormal levels of other serum enzymes; J96.21 Acute and chronic respiratory failure with hypoxia; E55.9 Vitamin D deficiency, unspecified; J44.0 Chronic obstructive pulmonary disease with (acute) lower respiratory infection; F17.210 Nicotine dependence, cigarettes, uncomplicated; Z71.6 Tobacco abuse counseling; Z99.81 Dependence on supplemental oxygen; Z88.1 Allergy status to other antibiotic agents; Z88.6 Allergy status to analgesic agent; Z90.49 Acquired absence of other specified parts of digestive tract; Z98.891 History of uterine scar from previous surgery; Z98.51 Tubal ligation status; Z80.0 Family history of malignant neoplasm of digestive organs; Z83.3 Family history of diabetes mellitus; Z81.8 Family history of other mental and behavioral disorders; Z68.20 Body mass index [BMI] 20.0-20.9, adult

== ENCOUNTER → 2019-07-15 | Day surgery (SDC) | payer OTHER ==
[~2019-07-15] VITALS: Ht 160 cm; Wt 51.3 kg
[~2019-07-15] MED LIST changes: +LEVAQUIN500 M2 PO
[2019-07-15 08:21] VITALS: BP 110/58
[2019-07-15 08:57] VITALS: BP 134/113
[2019-07-15 09:15] VITALS: BP 100/42
[2019-07-15 09:27] VITALS: BP 96/51
[2019-07-15 11:38] LABS: BF LYMPHOCYTES 12 %; BF MACROPHAGES 6 %; BF NEUTROPHILS 82 %
[2019-07-16 18:07] LABS: ACID FAST SPEC PROCESSING Concentration (.)
== END | disposition home or self-care (01) ==
LOC: SDC 07-14 11:45
PROVIDERS: Internal Medicine Critical Care Medicine
DX: R91.8 Other nonspecific abnormal finding of lung field (principal); J43.2 Centrilobular emphysema; J45.30 Mild persistent asthma, uncomplicated; R05 Cough; Z87.891 Personal history of nicotine dependence; Z98.890 Other specified postprocedural states; Z79.899 Other long term (current) drug therapy; Z83.3 Family history of diabetes mellitus; Z80.8 Family history of malignant neoplasm of other organs or systems

== ENCOUNTER → 2019-08-12 | Day surgery (SDC) | payer OTHER ==
[~2019-08-12] VITALS: Ht 157.4 cm; Wt 49.9 kg
[2019-08-12 08:30] VITALS: BP 107/54
[2019-08-12 10:14] VITALS: BP 107/88
[2019-08-12 10:29] VITALS: BP 99/49
[2019-08-12 10:44] VITALS: BP 110/60
== END | disposition home or self-care (01) ==
LOC: SDC 08-10 14:00
DX: Z12.11 Encounter for screening for malignant neoplasm of colon (principal); D12.2 Benign neoplasm of ascending colon; J44.9 Chronic obstructive pulmonary disease, unspecified; F17.210 Nicotine dependence, cigarettes, uncomplicated; Z88.8 Allergy status to other drugs, medicaments and biological substances; Z98.890 Other specified postprocedural states; Z79.899 Other long term (current) drug therapy; Z98.51 Tubal ligation status; Z86.010 Personal history of colon polyps; Z83.3 Family history of diabetes mellitus; Z80.8 Family history of malignant neoplasm of other organs or systems

== ENCOUNTER → 2019-09-02 | Outpatient (CLI) | payer OTHER ==
[2019-09-02 09:25] LABS: ALBUMIN 3.3 gm/dl (3.1-4.5); BILIRUBIN, DIRECT 0.1 mg/dL (0.0-0.2); TOTAL PROTEIN 7.4 gm/dL (6.4-8.2)
== END | disposition home or self-care (01) ==
LOC: SDC 08-10 14:00 → LAB 08:28 → US 08:28
PROVIDERS: Internal Medicine Gastroenterology
DX: R94.5 Abnormal results of liver function studies (principal)

== ENCOUNTER → 2019-10-15 | Outpatient (CLI) | payer OTHER | END | disposition home or self-care (01) | LOC: CT 10-08 11:00 | DX: J43.8 Other emphysema (principal); R91.8 Other nonspecific abnormal finding of lung field ==

== ENCOUNTER → 2020-01-25 | Outpatient (CLI) | payer OTHER | END | disposition home or self-care (01) | LOC: CT 09:47 | DX: R91.1 Solitary pulmonary nodule (principal) ==

== ENCOUNTER 2020-02-15 22:27 | Emergency (ER) | payer OTHER ==
[~2020-02-15] VITALS: Ht 154.9 cm; Wt 55.8 kg
[2020-02-15 22:44] VITALS: BP 162/79
== END 2020-02-16 00:20 | disposition home or self-care (01) ==
LOC: ED 22:27
DX: S93.401A Sprain of unspecified ligament of right ankle, initial encounter (principal); F17.200 Nicotine dependence, unspecified, uncomplicated; Z88.8 Allergy status to other drugs, medicaments and biological substances; Z79.899 Other long term (current) drug therapy; W17.89XA Other fall from one level to another, initial encounter; Y93.89 Activity, other specified; Y92.89 Other specified places as the place of occurrence of the external cause; Y99.8 Other external cause status

== ENCOUNTER → 2021-01-31 | Outpatient (CLI) | payer OTHER | END | disposition home or self-care (01) | LOC: CT 11:00 | PROVIDERS: ATTEND Internal Medicine Critical Care Medicine | DX: J43.9 Emphysema, unspecified (principal); R91.1 Solitary pulmonary nodule; I25.10 Atherosclerotic heart disease of native coronary artery without angina pectoris ==

== ENCOUNTER 2021-09-10 14:43 | Emergency (ER) | payer OTHER ==
[~2021-09-10] VITALS: Ht 157.4 cm; Wt 44.5 kg
[2021-09-10] MEDS ORDERED: PREDNISONE50 MG PO (16:17)
[2021-09-10] MEDS ORDERED: LEVOFLOXACIN500 MG PO (16:17)
[2021-09-10 16:37] VITALS: BP 111/52
== END 2021-09-10 16:21 | disposition home or self-care (01) ==
LOC: ED 14:43
DX: J44.1 Chronic obstructive pulmonary disease with (acute) exacerbation (principal); Z88.1 Allergy status to other antibiotic agents; Z88.6 Allergy status to analgesic agent; Z79.899 Other long term (current) drug therapy; Z87.891 Personal history of nicotine dependence

== ENCOUNTER → 2022-01-01 | Outpatient (CLI) | payer OTHER | END | disposition home or self-care (01) | LOC: RAD 11:23 | PROVIDERS: ATTEND Nurse Practitioner Primary Care | DX: J44.1 Chronic obstructive pulmonary disease with (acute) exacerbation (principal) ==

== ENCOUNTER 2022-01-02 20:40 | Emergency (ER) | payer OTHER | END 2022-01-02 22:00 | disposition left against medical advice (07) | LOC: ED 20:40 | DX: R06.02 Shortness of breath (principal); Z53.21 Procedure and treatment not carried out due to patient leaving prior to being seen by health care provider ==

== ENCOUNTER 2022-01-22 14:57 | Inpatient (IN) | payer OTHER ==
[~2022-01-22] VITALS: Ht 154.9 cm; Wt 44.1 kg
[2022-01-22 15:03] VITALS: BP 145/60
[2022-01-22 15:31] LABS: BASO % 0.5 % (0.0-1.0); EOS # 0.2 10*3/uL (0.0-0.4); EOS % 2.4 % (1.0-4.0); HEMATOCRIT 37.9 % (37.0-47.0); LYMPH # 1.7 10*3/uL (1.3-4.4); MEAN CELL VOLUME 97.2 fl (81.0-99.0); MEAN CORPUSCULAR HGB 29.7 pg (27.0-31.0); MEAN CORPUSCULAR HGB CONC 30.6 g/dl (33.0-37.0); MEAN PLATELET VOLUME 8.8 fl (9.6-12.3); MONO # 0.7 10*3/uL (0.1-1.0); MONO % 8.1 % (3.0-9.0); NEUT # 6.2 10*3/uL (2.3-7.9); NEUT % 69.8 % (47.0-73.0); PLATELET COUNT AUTOMATED 324 10*3/uL (130-400); RED CELL DISTRI WIDTH 13.8 % (0-14.5); WHITE BLOOD COUNT 8.8 10*3/uL (4.8-10.8)
[2022-01-22 15:42] LABS: ACT PARTIAL THROMBO TIME 29.1 SECONDS (20.0-32.1); INTERNATIONAL NORM RATIO 0.9 (2.0-3.5)
[2022-01-22 15:45] LABS: ABG BASE EXCESS 17.8 mmol/L (-2.0-2.0); ARTERIAL BLOOD GAS PH 7.428 (7.35-7.45)
[2022-01-22 15:51] LABS: ALKALINE PHOSPHATASE 104 U/L (45-117); BUN 8 mg/dl (7-24); CHLORIDE 93 mmol/L (98-107); CREATININE 0.47 mg/dL (0.55-1.02); POTASSIUM 3.8 mmol/L (3.5-5.1); SGOT/AST 12 IU/L (3-35); SGPT/ALT 26 U/L (12-78); SODIUM 136 mmol/L (136-145); TOTAL PROTEIN 6.8 gm/dL (6.4-8.2)
[2022-01-22] MEDS ORDERED: MONTELUKAST SOD10 MG PO (16:29)
[2022-01-22] MEDS ORDERED: VENT7GM INH (16:30)
[2022-01-22] MEDS ORDERED: ANORO ELLIPTA1 EACH IH (16:31)
[2022-01-22 16:33] VITALS: BP 113/46
[2022-01-22 16:50] VITALS: BP 105/55
[2022-01-22 16:55] VITALS: BP 98/50
[2022-01-22 19:11] LABS: BILIRUBIN Negative (Negative); BLOOD Trace-Intact (Negative); CLARITY Turbid (Clear); COLOR Yellow (Yellow); GLUCOSE Negative (Negative); KETONE Negative (Negative); LEUKO ESTERASE Trace (Negative); NITRITE Negative (Negative); PH 7.5 (4.5-8.0); SPECIFIC GRAVITY 1.015 (1.001-1.030)
[2022-01-22 19:34] LABS: BACTERIA 3+
[2022-01-22 20:00] VITALS: BP 129/61
[2022-01-23] VITALS: BP 137/67
[2022-01-23 06:34] LABS: HEMATOCRIT 38.1 % (37.0-47.0); MEAN CELL VOLUME 94.3 fl (81.0-99.0); MEAN CORPUSCULAR HGB 29.5 pg (27.0-31.0); MEAN CORPUSCULAR HGB CONC 31.2 g/dl (33.0-37.0); MEAN PLATELET VOLUME 9.5 fl (9.6-12.3); PLATELET COUNT AUTOMATED 381 10*3/uL (130-400); RED BLOOD COUNT 4.04 10*6/uL (4.10-5.10); RED CELL DISTRI WIDTH 13.3 % (0-14.5); WHITE BLOOD COUNT 7.2 10*3/uL (4.8-10.8)
[2022-01-23 06:37] LABS: MANUAL DIFF REFLEX YES
[2022-01-23 06:40] LABS: ALKALINE PHOSPHATASE 108 U/L (45-117); BUN 10 mg/dl (7-24); CHLORIDE 91 mmol/L (98-107); CREATININE 0.71 mg/dL (0.55-1.02); POTASSIUM 3.9 mmol/L (3.5-5.1); SGOT/AST 13 IU/L (3-35); SODIUM 134 mmol/L (136-145); TOTAL PROTEIN 7.4 gm/dL (6.4-8.2)
[2022-01-23 06:43] LABS: SGPT/ALT 28 U/L (12-78)
[2022-01-23 07:02] LABS: BASOPHILS 1 % (0-1); PLATELET SUFFICIENCY NORMAL (NORMAL); TOTAL CELLS COUNTED 100 #CELLS
[2022-01-23 08:00] VITALS: BP 117/59
[2022-01-23 08:36] LABS: ARTERIAL BLOOD GAS PH 7.516 (7.35-7.45); ARTERIAL BLOOD GAS PO2 110.1 (80-90)
[2022-01-23 12:00] VITALS: BP 112/55
[2022-01-23 16:00] VITALS: BP 107/46
[2022-01-23 20:00] VITALS: BP 123/63
[2022-01-24] VITALS: BP 123/54
[2022-01-24 08:00] VITALS: BP 97/66
[2022-01-24 12:00] VITALS: BP 125/63
[2022-01-24 16:00] VITALS: BP 107/48
[2022-01-24 20:00] VITALS: BP 119/57
[2022-01-25] VITALS: BP 111/55
[2022-01-25 06:02] LABS: CHLORIDE 95 mmol/L (98-107); CREATININE 0.61 mg/dL (0.55-1.02); POTASSIUM 4.1 mmol/L (3.5-5.1); SODIUM 134 mmol/L (136-145)
[2022-01-25 06:04] LABS: HEMATOCRIT 32.5 % (37.0-47.0); MEAN CELL VOLUME 93.4 fl (81.0-99.0); MEAN CORPUSCULAR HGB 29.9 pg (27.0-31.0); MEAN PLATELET VOLUME 9.6 fl (9.6-12.3); PLATELET COUNT AUTOMATED 327 10*3/uL (130-400); RED BLOOD COUNT 3.48 10*6/uL (4.10-5.10); RED CELL DISTRI WIDTH 14.6 % (0-14.5); WHITE BLOOD COUNT 7.7 10*3/uL (4.8-10.8)
[2022-01-25 06:07] LABS: MANUAL DIFF REFLEX YES
[2022-01-25 06:37] LABS: BUN 20 mg/dl (7-24)
[2022-01-25 06:52] LABS: TOTAL CELLS COUNTED 100 #CELLS
[2022-01-25 06:53] LABS: PLATELET SUFFICIENCY NORMAL (NORMAL); SCHISTOCYTES FEW; STOMATOCYTE FEW
[2022-01-25 08:34] VITALS: BP 117/61
[2022-01-25] MEDS ORDERED: DOXYCYCLINE HY100 M3 PO (10:33)
[2022-01-25] MEDS ORDERED: PREDNISONE10 MG PO (10:33)
[2022-01-25 11:29] VITALS: BP 107/58
== END 2022-01-25 13:54 | disposition home or self-care (01) | DRG 140 ==
LOC: ED 14:57 → 5E 16:19 → EDHOLD 16:19 → 5E 16:42
PROVIDERS: Emergency Medicine; Internal Medicine; ADMIT Internal Medicine; ATTEND Internal Medicine
PROC: 5A09357 Assistance with Respiratory Ventilation, Less than 24 Consecutive Hours, Continuous Positive Airway Pressure (ICD-10-PCS; principal; 2022-01-22)
DX: J44.1 Chronic obstructive pulmonary disease with (acute) exacerbation (principal); J96.22 Acute and chronic respiratory failure with hypercapnia; E44.0 Moderate protein-calorie malnutrition; R73.9 Hyperglycemia, unspecified; R91.8 Other nonspecific abnormal finding of lung field; J96.21 Acute and chronic respiratory failure with hypoxia; F17.210 Nicotine dependence, cigarettes, uncomplicated; J96.11 Chronic respiratory failure with hypoxia; Z99.81 Dependence on supplemental oxygen; D64.9 Anemia, unspecified; Z68.1 Body mass index [BMI] 19.9 or less, adult; Z71.6 Tobacco abuse counseling; Z90.49 Acquired absence of other specified parts of digestive tract; Z88.6 Allergy status to analgesic agent; Z88.1 Allergy status to other antibiotic agents; Z88.8 Allergy status to other drugs, medicaments and biological substances; Z79.51 Long term (current) use of inhaled steroids; Z79.899 Other long term (current) drug therapy

== ENCOUNTER → 2022-04-05 | Day surgery (SDC) | payer OTHER ==
[~2022-04-05] VITALS: Ht 154.9 cm; Wt 44.5 kg
[~2022-04-05] MED LIST changes: +ANORO ELLIPTA1 EACH IH; +DOXYCYCLINE HY100 M3 PO; +MONTELUKAST SOD10 MG PO; +VENT7GM INH
[2022-04-05 07:30] VITALS: BP 115/55
[2022-04-05 08:39] VITALS: BP 96/34
[2022-04-05 08:54] VITALS: BP 114/59
[2022-04-05 09:09] VITALS: BP 125/58
== END | disposition home or self-care (01) ==
LOC: SDC 04-02 09:30
PROVIDERS: ATTEND Surgery
DX: Z12.11 Encounter for screening for malignant neoplasm of colon (principal); D12.0 Benign neoplasm of cecum; K57.30 Diverticulosis of large intestine without perforation or abscess without bleeding; J43.9 Emphysema, unspecified; F17.290 Nicotine dependence, other tobacco product, uncomplicated; Z86.010 Personal history of colon polyps; Z98.890 Other specified postprocedural states

== ENCOUNTER 2022-04-28 16:13 | Emergency (ER) | payer OTHER ==
[~2022-04-28] VITALS: Ht 154.9 cm; Wt 44.5 kg
[2022-04-28 16:16] VITALS: BP 116/52
[2022-04-28] MEDS ORDERED: VENTOLIN 02.5 MG/3 M INH ×2 (17:48→17:50)
[2022-04-28] MEDS ORDERED: TYLENOL325 M1 PO (17:48)
[2022-04-28] MEDS ORDERED: AEROECLIPSE II1 EACH MC (17:48)
[2022-04-28] MEDS ORDERED: ALBUTEROL2.5 MG/0.5 INH (17:48)
== END 2022-04-28 18:10 | disposition home or self-care (01) ==
LOC: ED 16:13
DX: S99.921A Unspecified injury of right foot, initial encounter (principal); J44.9 Chronic obstructive pulmonary disease, unspecified; F17.200 Nicotine dependence, unspecified, uncomplicated; Z79.899 Other long term (current) drug therapy; Z88.1 Allergy status to other antibiotic agents; Z88.8 Allergy status to other drugs, medicaments and biological substances; Z98.51 Tubal ligation status; Z90.49 Acquired absence of other specified parts of digestive tract; Z98.890 Other specified postprocedural states; W22.8XXA Striking against or struck by other objects, initial encounter; Y93.89 Activity, other specified; Y92.89 Other specified places as the place of occurrence of the external cause; Y99.8 Other external cause status

== ENCOUNTER → 2022-05-16 | Outpatient (CLI) | payer OTHER ==
[~2022-05-16] MED LIST changes: +AEROECLIPSE II1 EACH MC; +ALBUTEROL2.5 MG/0.5 INH; +TYLENOL325 M1 PO; +VENTOLIN 02.5 MG/3 M INH; +[UNRECOGNIZED DRUG - OTHER] MC
== END | disposition home or self-care (01) ==
LOC: ORTHO 02:35
PROVIDERS: ATTEND Orthopaedic Surgery
DX: S92.511D Displaced fracture of proximal phalanx of right lesser toe(s), subsequent encounter for fracture with routine healing (principal); X58.XXXD Exposure to other specified factors, subsequent encounter

== ENCOUNTER → 2022-12-22 | Outpatient (CLI) | payer OTHER ==
[~2022-12-22] MED LIST changes: +LEVOFLOXACIN750 M2 PO
[2022-12-22 10:15] LABS: ABG BASE EXCESS 17.5 mmol/L (-2.0-2.0); ARTERIAL BLOOD GAS PH 7.427 (7.35-7.45)
[2022-12-22 10:22] LABS: ARTERIAL BLOOD GAS PO2 38.9 (80-90)
== END | disposition home or self-care (01) ==
LOC: CARD 01:40
PROVIDERS: ATTEND Internal Medicine Critical Care Medicine
DX: J43.2 Centrilobular emphysema (principal); J45.30 Mild persistent asthma, uncomplicated; J96.10 Chronic respiratory failure, unspecified whether with hypoxia or hypercapnia; R91.8 Other nonspecific abnormal finding of lung field; R91.1 Solitary pulmonary nodule; J96.11 Chronic respiratory failure with hypoxia; J96.12 Chronic respiratory failure with hypercapnia; Z87.891 Personal history of nicotine dependence

== ENCOUNTER 2023-04-27 22:28 | Inpatient (IN) | payer OTHER ==
[~2023-04-27] VITALS: Ht 154.9 cm; Wt 38.6 kg
[~2023-04-27 22:28] MED LIST changes: +ALENDRONATE SOD70 M1 PO; +ANORO ELLIPTA1 EACH INH; +FLOVENT HFA12 GM INH
[2023-04-27 22:46] VITALS: BP 126/55
[2023-04-27 22:56] LABS: HEMATOCRIT 37.6 % (37.0-47.0); MEAN CELL VOLUME 101.3 fl (81.0-99.0); MEAN CORPUSCULAR HGB 29.6 pg (27.0-31.0); MEAN CORPUSCULAR HGB CONC 29.3 g/dl (33.0-37.0); PLATELET COUNT AUTOMATED 272 10*3/uL (130-400); RED BLOOD COUNT 3.71 10*6/uL (4.10-5.10); RED CELL DISTRI WIDTH 13.5 % (0-14.5); WHITE BLOOD COUNT 7.5 10*3/uL (4.8-10.8)
[2023-04-27 22:57] LABS: MANUAL DIFF REFLEX YES
[2023-04-27 23:09] LABS: ACT PARTIAL THROMBO TIME 28.2 SECONDS (20.0-32.1)
[2023-04-27 23:17] LABS: ALKALINE PHOSPHATASE 84 U/L (46-116); BUN 9 mg/dl (9-23); CHLORIDE 90 mmol/L (98-107); LIPASE 24 U/L (12-53); POTASSIUM 4.2 mmol/L (3.4-5.1); SGPT/ALT 11 U/L (10-49); TOTAL PROTEIN 6.1 gm/dL (6.0-8.0)
[2023-04-27 23:18] LABS: PLATELET SUFFICIENCY NORMAL (NORMAL); POLYCHROMASIA SLIGHT; TOTAL CELLS COUNTED 100 #CELLS; TOXIC GRANULATION SLIGHT
[2023-04-27 23:19] LABS: SPHEROCYTES FEW; STOMATOCYTE FEW
[2023-04-28] VITALS (9 sets, daily range): BP systolic 103–127; BP diastolic 35–50
[2023-04-28 02:47] LABS: ABG BASE EXCESS 28.2 mmol/L (-2.0-2.0); ARTERIAL BLOOD GAS PH 7.334 (7.35-7.45); ARTERIAL BLOOD GAS PO2 78.6 (80-90)
[2023-04-28 03:46] LABS: BILIRUBIN Negative (Negative); BLOOD Negative (Negative); CLARITY Turbid (Clear); COLOR Yellow (Yellow); GLUCOSE Negative (Negative); KETONE Negative (Negative); LEUKO ESTERASE Negative (Negative); NITRITE Negative (Negative); PH 7.5 (4.5-8.0); SPECIFIC GRAVITY 1.015 (1.001-1.030)
[2023-04-28 03:57] LABS: BACTERIA 1+; WBC 0-2 wbc/hpf (0-5)
[2023-04-28 06:12] LABS: ALKALINE PHOSPHATASE 77 U/L (46-116); BUN 10 mg/dl (9-23); CHLORIDE 88 mmol/L (98-107); POTASSIUM 4.2 mmol/L (3.4-5.1); SGPT/ALT 10 U/L (10-49); TOTAL PROTEIN 5.7 gm/dL (6.0-8.0)
[2023-04-28 06:15] LABS: BASO % 0.5 % (0.0-1.0); EOS # 0.1 10*3/uL (0.0-0.4); EOS % 0.9 % (1.0-4.0); HEMATOCRIT 35.3 % (37.0-47.0); LYMPH # 1.7 10*3/uL (1.3-4.4); LYMPH % 26.6 % (27.0-41.0); MEAN CORPUSCULAR HGB 29.2 pg (27.0-31.0); MEAN CORPUSCULAR HGB CONC 29.2 g/dl (33.0-37.0); MEAN PLATELET VOLUME 9.3 fl (9.6-12.3); MONO # 0.6 10*3/uL (0.1-1.0); MONO % 8.9 % (3.0-9.0); NEUT # 4.1 10*3/uL (2.3-7.9); NEUT % 62.9 % (47.0-73.0); PLATELET COUNT AUTOMATED 269 10*3/uL (130-400); RED BLOOD COUNT 3.53 10*6/uL (4.10-5.10); RED CELL DISTRI WIDTH 13.6 % (0-14.5); WHITE BLOOD COUNT 6.5 10*3/uL (4.8-10.8)
[2023-04-28 06:27] LABS: ABG BASE EXCESS 20.3 mmol/L (-2.0-2.0); ARTERIAL BLOOD GAS PH 7.356 (7.35-7.45)
[2023-04-28 14:03] LABS: ABG BASE EXCESS 24.3 mmol/L (-2.0-2.0); ARTERIAL BLOOD GAS PH 7.44 (7.35-7.45); ARTERIAL BLOOD GAS PO2 100.4 (80-90)
[2023-04-29] VITALS: BP 126/56
[2023-04-29 06:54] LABS: MEAN CORPUSCULAR HGB 29.3 pg (27.0-31.0); MEAN CORPUSCULAR HGB CONC 30.9 g/dl (33.0-37.0); MEAN PLATELET VOLUME 9.7 fl (9.6-12.3); PLATELET COUNT AUTOMATED 296 10*3/uL (130-400); RED BLOOD COUNT 3.69 10*6/uL (4.10-5.10); RED CELL DISTRI WIDTH 13.6 % (0-14.5); WHITE BLOOD COUNT 4.6 10*3/uL (4.8-10.8)
[2023-04-29 06:55] LABS: MANUAL DIFF REFLEX YES; MEAN CELL VOLUME 94.9 fl (81.0-99.0)
[2023-04-29 07:44] LABS: ALKALINE PHOSPHATASE 85 U/L (46-116); BUN 15 mg/dl (9-23); CHLORIDE 89 mmol/L (98-107); CHOLESTEROL 223 mg/dL (<200); FREE T4 1.16 ng/dl (0.89-1.76); LDL CHOLESTEROL 122 mg/dL (9-159); POTASSIUM 4.2 mmol/L (3.4-5.1); SGPT/ALT 12 U/L (10-49); TOTAL PROTEIN 6.5 gm/dL (6.0-8.0); TRIGLYCERIDES 113 mg/dl (<150)
[2023-04-29 07:47] LABS: VITAMIN D, 25-HYDROXY 9.1 ng/mL (30-100)
[2023-04-29 07:49] LABS: PLATELET SUFFICIENCY NORMAL (NORMAL); TOTAL CELLS COUNTED 100 #CELLS
[2023-04-29 07:55] LABS: ABG BASE EXCESS 10.1 mmol/L (-2.0-2.0); ARTERIAL BLOOD GAS PH 7.423 (7.35-7.45); ARTERIAL BLOOD GAS PO2 73.4 (80-90)
[2023-04-29 08:00] VITALS: BP 109/56
[2023-04-29] MEDS ORDERED: ANORO ELLIPTA1 EACH IH (09:37)
[2023-04-29 12:00] VITALS: BP 102/54
[2023-04-29 16:00] VITALS: BP 106/53
[2023-04-29 20:00] VITALS: BP 112/52
[2023-04-30] VITALS: BP 111/88
[2023-04-30 06:43] LABS: HEMATOCRIT 32.3 % (37.0-47.0); LYMPH # 0.4 10*3/uL (1.3-4.4); MEAN CELL VOLUME 92.6 fl (81.0-99.0); MEAN CORPUSCULAR HGB 29.5 pg (27.0-31.0); MEAN CORPUSCULAR HGB CONC 31.9 g/dl (33.0-37.0); MEAN PLATELET VOLUME 9.2 fl (9.6-12.3); MONO # 0.2 10*3/uL (0.1-1.0); MONO % 3.9 % (3.0-9.0); NEUT # 5.2 10*3/uL (2.3-7.9); NEUT % 88.8 % (47.0-73.0); PLATELET COUNT AUTOMATED 299 10*3/uL (130-400); RED BLOOD COUNT 3.49 10*6/uL (4.10-5.10); RED CELL DISTRI WIDTH 14.1 % (0-14.5); WHITE BLOOD COUNT 5.9 10*3/uL (4.8-10.8)
[2023-04-30 07:04] LABS: BUN 17 mg/dl (9-23); CHLORIDE 96 mmol/L (98-107); POTASSIUM 3.4 mmol/L (3.4-5.1)
[2023-04-30 07:19] LABS: ABG BASE EXCESS 12.5 mmol/L (-2.0-2.0); ARTERIAL BLOOD GAS PH 7.336 (7.35-7.45); ARTERIAL BLOOD GAS PO2 149.5 (80-90)
[2023-04-30 08:00] VITALS: BP 103/44
[2023-04-30] MEDS ORDERED: ATORVASTATIN CA40 M1 PO (11:46)
[2023-04-30] MEDS ORDERED: VITAMIN D3125 MC1 PO (11:46)
[2023-04-30] MEDS ORDERED: ACETAZOLAMIDE250 MG PO (11:46)
[2023-04-30] MEDS ORDERED: HYDROXYZINE HCL25 MG PO (11:46)
[2023-04-30] MEDS ORDERED: PREDNISONE10 MG PO (11:46)
== END 2023-04-30 13:15 | disposition home or self-care (01) | DRG 133 ==
LOC: ED 22:28 → EDHOLD 04-28 03:04 → 5E 04-28 03:04
PROVIDERS: Family Medicine; Internal Medicine; Internal Medicine Critical Care Medicine; ADMIT Internal Medicine; ATTEND Internal Medicine
PROC: 5A09357 Assistance with Respiratory Ventilation, Less than 24 Consecutive Hours, Continuous Positive Airway Pressure (ICD-10-PCS; principal; 2023-04-28)
DX: J96.22 Acute and chronic respiratory failure with hypercapnia (principal); G93.41 Metabolic encephalopathy; E44.0 Moderate protein-calorie malnutrition; J44.1 Chronic obstructive pulmonary disease with (acute) exacerbation; E87.4 Mixed disorder of acid-base balance; F41.9 Anxiety disorder, unspecified; J96.21 Acute and chronic respiratory failure with hypoxia; Z68.1 Body mass index [BMI] 19.9 or less, adult; R73.9 Hyperglycemia, unspecified; D53.9 Nutritional anemia, unspecified; F17.210 Nicotine dependence, cigarettes, uncomplicated; R91.8 Other nonspecific abnormal finding of lung field; Z88.6 Allergy status to analgesic agent; Z88.1 Allergy status to other antibiotic agents; Z88.0 Allergy status to penicillin; Z90.49 Acquired absence of other specified parts of digestive tract; Z98.891 History of uterine scar from previous surgery; Z98.51 Tubal ligation status; Z81.8 Family history of other mental and behavioral disorders; Z80.0 Family history of malignant neoplasm of digestive organs; Z83.3 Family history of diabetes mellitus; Z79.899 Other long term (current) drug therapy; Z79.51 Long term (current) use of inhaled steroids; Z79.52 Long term (current) use of systemic steroids; Z91.199 Patient's noncompliance with other medical treatment and regimen due to unspecified reason; Z71.6 Tobacco abuse counseling

== ENCOUNTER 2023-08-20 23:39 | Emergency (ER) | payer OTHER ==
[~2023-08-20] VITALS: Wt 36.3 kg
[~2023-08-20 23:39] MED LIST changes: +ACETAZOLAMIDE250 MG PO; +ATORVASTATIN CA40 M1 PO; +FUROSEMIDE20 M1 PO; +HYDROCODONE-AC1 EAC1 PO; +HYDROXYZINE HCL25 MG PO; +LORAZEPAM1 MG PO; +MUCUS RELIEF600 MG PO; +VITAMIN D3125 MC1 PO; +Ventolin 02.5 MG/3 M INH
[2023-08-21 00:23] LABS: BASO % 0.3 % (0.0-1.0); EOS # 0.2 10*3/uL (0.0-0.4); EOS % 2.2 % (1.0-4.0); HEMATOCRIT 36.4 % (37.0-47.0); LYMPH # 1.3 10*3/uL (1.3-4.4); LYMPH % 13.4 % (27.0-41.0); MEAN CORPUSCULAR HGB 28.3 pg (27.0-31.0); MEAN CORPUSCULAR HGB CONC 28.3 g/dl (33.0-37.0); MEAN PLATELET VOLUME 8.7 fl (9.6-12.3); MONO # 1.1 10*3/uL (0.1-1.0); MONO % 11.2 % (3.0-9.0); NEUT # 6.9 10*3/uL (2.3-7.9); NEUT % 72.5 % (47.0-73.0); PLATELET COUNT AUTOMATED 402 10*3/uL (130-400); RED BLOOD COUNT 3.64 10*6/uL (4.10-5.10); RED CELL DISTRI WIDTH 13.4 % (0-14.5); WHITE BLOOD COUNT 9.5 10*3/uL (4.8-10.8)
[2023-08-21] MEDS ORDERED: PREDNISONE50 MG PO (01:26)
[2023-08-21] MEDS ORDERED: VIBRAMYCIN100 MG PO (01:26)
[2023-08-21 01:28] LABS: ALKALINE PHOSPHATASE 127 U/L (46-116); BUN 16 mg/dl (9-23); CHLORIDE 92 mmol/L (98-107); POTASSIUM 2.8 mmol/L (3.4-5.1); SGPT/ALT 20 U/L (5-49); TOTAL PROTEIN 6.2 gm/dL (6.0-8.0)
[2023-08-21 01:46] VITALS: BP 102/44
== END 2023-08-21 03:45 | disposition home or self-care (01) ==
LOC: ED 23:39
PROVIDERS: Family Medicine
DX: J44.1 Chronic obstructive pulmonary disease with (acute) exacerbation (principal); E87.6 Hypokalemia; Z88.1 Allergy status to other antibiotic agents; Z88.6 Allergy status to analgesic agent; Z98.890 Other specified postprocedural states; Z90.49 Acquired absence of other specified parts of digestive tract; Z98.51 Tubal ligation status; F17.210 Nicotine dependence, cigarettes, uncomplicated; Z20.822 Contact with and (suspected) exposure to COVID-19

== ENCOUNTER 2023-10-06 19:08 | Inpatient (IN) | payer OTHER ==
[~2023-10-06] VITALS: Ht 152.4 cm; Wt 36.8 kg
[~2023-10-06 19:08] MED LIST changes: +ATIVAN1 MG PO; +FOSAMAX70 M1 PO; +LASIX20 MG PO; +LIPITOR40 MG PO; +SINGULAIR10 M1 PO; +TRELEGY ELLIPT1 EACH INH; +VITAMIN D310 MC3 PO; +VITAMIN D325 MC1 PO; +VITAMIN D350 MC2 PO
[2023-10-06 19:13] VITALS: BP 124/56
[2023-10-06 19:47] LABS: BASO % 0.2 % (0.0-1.0); EOS # 0.3 10*3/uL (0.0-0.4); EOS % 3.7 % (1.0-4.0); HEMATOCRIT 34.2 % (37.0-47.0); LYMPH # 1.1 10*3/uL (1.3-4.4); LYMPH % 13.5 % (27.0-41.0); MEAN CELL VOLUME 95.5 fl (81.0-99.0); MEAN CORPUSCULAR HGB 27.4 pg (27.0-31.0); MEAN CORPUSCULAR HGB CONC 28.7 g/dl (33.0-37.0); MEAN PLATELET VOLUME 8.6 fl (9.6-12.3); MONO # 0.8 10*3/uL (0.1-1.0); MONO % 9.7 % (3.0-9.0); NEUT # 5.8 10*3/uL (2.3-7.9); NEUT % 72.7 % (47.0-73.0); PLATELET COUNT AUTOMATED 391 10*3/uL (130-400); RED BLOOD COUNT 3.58 10*6/uL (4.10-5.10); RED CELL DISTRI WIDTH 14.3 % (0-14.5); WHITE BLOOD COUNT 8.1 10*3/uL (4.8-10.8)
[2023-10-06 20:13] LABS: BUN 8 mg/dl (9-23); CHLORIDE 91 mmol/L (98-107); POTASSIUM 3.5 mmol/L (3.4-5.1)
[2023-10-06 20:28] VITALS: BP 108/45
[2023-10-06] MEDS ORDERED: methylPREDNISolone sod succ 125 MG VIAL IV ONE (21:15)
[2023-10-06] MEDS ORDERED: LORazepam 1 MG TAB PO ONE (21:35)
[2023-10-06 23:24] VITALS: BP 98/54
[2023-10-07] VITALS (8 sets, daily range): BP systolic 90–115; BP diastolic 36–58
[2023-10-07] MEDS ORDERED: Ondansetron Hydrochloride 4 MG/2 ML VIAL IV PRN (01:00)
[2023-10-07] MEDS ORDERED: ACETAMINOPHEN 325 MG TAB PO PRN (01:00)
[2023-10-07] MEDS ORDERED: BISACODYL 5 MG TAB PO PRN (01:00)
[2023-10-07] MEDS ORDERED: ACETAMINOPHEN 650 MG SUPP R PRN (01:00)
[2023-10-07] MEDS ORDERED: Acetaminophen/Hydrocodone 5 MG/325 MG TABLET PO PRN (01:00)
[2023-10-07] MEDS ORDERED: Magnesium Hydroxide 30 ML UDC PO PRN (01:00)
[2023-10-07] MEDS ORDERED: Albuterol Sulf/Ipratropium 3 ML VIAL NEB PRN (01:10)
[2023-10-07 02:26] LABS: ABG BASE EXCESS 16.1 mmol/L (-2.0-2.0); ARTERIAL BLOOD GAS PH 7.389 (7.35-7.45)
[2023-10-07 06:21] LABS: BASO % 0.3 % (0.0-1.0); HEMATOCRIT 33.6 % (37.0-47.0); LYMPH # 0.5 10*3/uL (1.3-4.4); LYMPH % 15.8 % (27.0-41.0); MEAN CELL VOLUME 93.3 fl (81.0-99.0); MEAN CORPUSCULAR HGB 27.5 pg (27.0-31.0); MEAN CORPUSCULAR HGB CONC 29.5 g/dl (33.0-37.0); MONO # 0.1 10*3/uL (0.1-1.0); MONO % 2.1 % (3.0-9.0); NEUT # 2.7 10*3/uL (2.3-7.9); NEUT % 81.5 % (47.0-73.0); PLATELET COUNT AUTOMATED 360 10*3/uL (130-400); RED CELL DISTRI WIDTH 14.2 % (0-14.5); WHITE BLOOD COUNT 3.3 10*3/uL (4.8-10.8)
[2023-10-07 07:14] LABS: ALKALINE PHOSPHATASE 76 U/L (46-116); BUN 7 mg/dl (9-23); CHLORIDE 93 mmol/L (98-107); POTASSIUM 4.3 mmol/L (3.4-5.1); SGPT/ALT 17 U/L (5-49); TOTAL PROTEIN 6.1 gm/dL (6.0-8.0)
[2023-10-07] MEDS ORDERED: POTASSIUM CHLORIDE 20 MEQ TAB PO ONE (07:25)
[2023-10-07] MEDS ORDERED: LORazepam 1 MG TAB PO PRN (07:30)
[2023-10-07] MEDS ORDERED: hydrOXYzine pamoate 25 MG CAP PO PRN (07:30)
[2023-10-07] MEDS ORDERED: Enoxaparin Sodium 40 MG/0.4 ML SYR SC SCH (10:00)
[2023-10-07] MEDS ORDERED: methylPREDNISolone sod succ 40 MG VIAL IV SCH (10:00)
[2023-10-07] MEDS ORDERED: ALENDRONATE SODIUM 70 MG TAB PO SCH (10:00)
[2023-10-07] MEDS ORDERED: ATORVASTATIN CALCIUM 40 MG TABLET PO SCH (10:00)
[2023-10-07] MEDS ORDERED: LEVOFLOXACIN 150 ML IV SCH (10:00)
[2023-10-07] MEDS ORDERED: GUAIFENESIN 600 MG TAB ER PO SCH ×2 (10:00→22:00)
[2023-10-07] MEDS ORDERED: hydrOXYzine 50 MG CAP PO PRN (10:40)
[2023-10-07] MEDS ORDERED: acetaZOLAMIDE 250 MG TAB PO SCH (14:30)
[2023-10-07] MEDS ORDERED: Nicotine 21 MG PATCH T SCH (14:30)
[2023-10-08] VITALS: BP 114/58
[2023-10-08 06:58] LABS: BASO % 0.1 % (0.0-1.0); EOS % 0.4 % (1.0-4.0); HEMATOCRIT 33.9 % (37.0-47.0); LYMPH # 1.7 10*3/uL (1.3-4.4); LYMPH % 20.5 % (27.0-41.0); MEAN CELL VOLUME 93.4 fl (81.0-99.0); MEAN CORPUSCULAR HGB 27.5 pg (27.0-31.0); MEAN CORPUSCULAR HGB CONC 29.5 g/dl (33.0-37.0); MONO # 0.7 10*3/uL (0.1-1.0); MONO % 8.4 % (3.0-9.0); NEUT # 5.8 10*3/uL (2.3-7.9); NEUT % 70.2 % (47.0-73.0); PLATELET COUNT AUTOMATED 451 10*3/uL (130-400); RED BLOOD COUNT 3.63 10*6/uL (4.10-5.10); RED CELL DISTRI WIDTH 14.3 % (0-14.5); WHITE BLOOD COUNT 8.2 10*3/uL (4.8-10.8)
[2023-10-08 07:05] LABS: BUN 12 mg/dl (9-23); CHLORIDE 97 mmol/L (98-107)
[2023-10-08 07:11] LABS: POTASSIUM 3.1 mmol/L (3.4-5.1)
[2023-10-08 08:14] VITALS: BP 112/53
[2023-10-08] MEDS ORDERED: POTASSIUM CHLORIDE 20 MEQ TAB PO ONE (08:15)
[2023-10-08 12:26] VITALS: BP 109/58
[2023-10-08 16:00] VITALS: BP 105/54
[2023-10-08 20:00] VITALS: BP 129/60
[2023-10-09] VITALS: BP 109/56
[2023-10-09 05:32] LABS: BUN 11 mg/dl (9-23); CHLORIDE 102 mmol/L (98-107)
[2023-10-09 06:06] LABS: BASO % 0.1 % (0.0-1.0); HEMATOCRIT 34.4 % (37.0-47.0); LYMPH # 1.1 10*3/uL (1.3-4.4); LYMPH % 12.5 % (27.0-41.0); MEAN CELL VOLUME 93.7 fl (81.0-99.0); MEAN CORPUSCULAR HGB 27.5 pg (27.0-31.0); MEAN CORPUSCULAR HGB CONC 29.4 g/dl (33.0-37.0); MEAN PLATELET VOLUME 8.8 fl (9.6-12.3); MONO # 0.6 10*3/uL (0.1-1.0); MONO % 7.5 % (3.0-9.0); NEUT # 6.6 10*3/uL (2.3-7.9); NEUT % 79.4 % (47.0-73.0); PLATELET COUNT AUTOMATED 431 10*3/uL (130-400); RED BLOOD COUNT 3.67 10*6/uL (4.10-5.10); RED CELL DISTRI WIDTH 14.3 % (0-14.5); WHITE BLOOD COUNT 8.4 10*3/uL (4.8-10.8)
[2023-10-09 08:00] VITALS: BP 133/57
[2023-10-09 11:42] VITALS: BP 103/53
== END 2023-10-09 16:01 | disposition home or self-care (01) | DRG 140 ==
LOC: ED 19:08 → EDHOLD 10-07 00:06 → 5E 10-07 00:06
PROVIDERS: Internal Medicine; Student in an Organized Health Care Education/Training Program; ADMIT Family Medicine; ATTEND Family Medicine
PROC: 5A09357 Assistance with Respiratory Ventilation, Less than 24 Consecutive Hours, Continuous Positive Airway Pressure (ICD-10-PCS; 2023-10-07)
PROC: 5A09357 Assistance with Respiratory Ventilation, Less than 24 Consecutive Hours, Continuous Positive Airway Pressure (ICD-10-PCS; 2023-10-08)
PROC: 5A09357 Assistance with Respiratory Ventilation, Less than 24 Consecutive Hours, Continuous Positive Airway Pressure (ICD-10-PCS; principal; 2023-10-09)
DX: J44.1 Chronic obstructive pulmonary disease with (acute) exacerbation (principal); J96.22 Acute and chronic respiratory failure with hypercapnia; J96.21 Acute and chronic respiratory failure with hypoxia; E87.3 Alkalosis; D64.9 Anemia, unspecified; E11.65 Type 2 diabetes mellitus with hyperglycemia; E78.5 Hyperlipidemia, unspecified; M81.0 Age-related osteoporosis without current pathological fracture; I50.32 Chronic diastolic (congestive) heart failure; F41.1 Generalized anxiety disorder; E87.8 Other disorders of electrolyte and fluid balance, not elsewhere classified; F17.210 Nicotine dependence, cigarettes, uncomplicated; E87.6 Hypokalemia; Z90.49 Acquired absence of other specified parts of digestive tract; Z98.891 History of uterine scar from previous surgery; Z88.6 Allergy status to analgesic agent; Z88.1 Allergy status to other antibiotic agents; Z79.1 Long term (current) use of non-steroidal anti-inflammatories (NSAID); Z79.899 Other long term (current) drug therapy; Z68.1 Body mass index [BMI] 19.9 or less, adult

== ENCOUNTER 2023-11-15 11:57 | Emergency (ER) | payer OTHER ==
[~2023-11-15 11:57] MED LIST changes: +VITAMIN D3125 MCG PO
[2023-11-15] MEDS ORDERED: MAGNESIUM SULFATE 50 ML IV ONE (12:05)
[2023-11-15] MEDS ORDERED: Albuterol Sulfate 2.5 MG/3 ML VIAL NEB ONE (12:05)
[2023-11-15] MEDS ORDERED: methylPREDNISolone sod succ 125 MG VIAL IV ONE (12:05)
[2023-11-15 12:20] LABS: BASO % 0.1 % (0.0-1.0); EOS # 0.2 10*3/uL (0.0-0.4); EOS % 1.8 % (1.0-4.0); HEMATOCRIT 38.9 % (37.0-47.0); LYMPH # 0.5 10*3/uL (1.3-4.4); LYMPH % 4.5 % (27.0-41.0); MEAN CELL VOLUME 96.8 fl (81.0-99.0); MEAN CORPUSCULAR HGB 26.6 pg (27.0-31.0); MEAN CORPUSCULAR HGB CONC 27.5 g/dl (33.0-37.0); MEAN PLATELET VOLUME 8.6 fl (9.6-12.3); MONO # 0.7 10*3/uL (0.1-1.0); MONO % 6.1 % (3.0-9.0); NEUT # 10.3 10*3/uL (2.3-7.9); NEUT % 87.2 % (47.0-73.0); PLATELET COUNT AUTOMATED 312 10*3/uL (130-400); RED BLOOD COUNT 4.02 10*6/uL (4.10-5.10); RED CELL DISTRI WIDTH 14.1 % (0-14.5); WHITE BLOOD COUNT 11.8 10*3/uL (4.8-10.8)
[2023-11-15 12:31] VITALS: BP 104/42
[2023-11-15 12:43] LABS: ALKALINE PHOSPHATASE 78 U/L (46-116); BUN 12 mg/dl (9-23); CHLORIDE 93 mmol/L (98-107); POTASSIUM 3.4 mmol/L (3.4-5.1); SGPT/ALT 20 U/L (5-49); TOTAL PROTEIN 6.2 gm/dL (6.0-8.0)
[2023-11-15 13:42] LABS: ABG BASE EXCESS 14.4 mmol/L (-2.0-2.0); ARTERIAL BLOOD GAS PH 7.356 (7.35-7.45)
[2023-11-15] MEDS ORDERED: AVPAK AZITHROM250 M1 PO (13:50)
[2023-11-15] MEDS ORDERED: PREDNISONE20 M1 PO (13:50)
== END 2023-11-15 13:53 | disposition home or self-care (01) ==
LOC: ED 11:57
PROVIDERS: Emergency Medicine; Physician Assistant Medical
DX: J44.1 Chronic obstructive pulmonary disease with (acute) exacerbation (principal); I50.9 Heart failure, unspecified; F32.A Depression, unspecified; F41.9 Anxiety disorder, unspecified; Z88.1 Allergy status to other antibiotic agents; Z90.49 Acquired absence of other specified parts of digestive tract; Z98.51 Tubal ligation status; Z98.890 Other specified postprocedural states; F17.210 Nicotine dependence, cigarettes, uncomplicated

== ENCOUNTER 2023-11-22 18:45 | Inpatient (IN) | payer OTHER ==
[~2023-11-22] VITALS: Ht 157.5 cm; Wt 41.4 kg
[~2023-11-22 18:45] MED LIST changes: +AVPAK AZITHROM250 M1 PO
[2023-11-22 18:49] VITALS: BP 99/45
[2023-11-22] MEDS ORDERED: methylPREDNISolone sod succ 125 MG VIAL IV ONE (19:00)
[2023-11-22] MEDS ORDERED: Albuterol Sulfate 2.5 MG/3 ML VIAL NEB ONE (19:00)
[2023-11-22 19:19] LABS: MEAN CELL VOLUME 94.5 fl (81.0-99.0); MEAN CORPUSCULAR HGB 26.5 pg (27.0-31.0); MEAN CORPUSCULAR HGB CONC 28.1 g/dl (33.0-37.0); MEAN PLATELET VOLUME 8.8 fl (9.6-12.3); PLATELET COUNT AUTOMATED 256 10*3/uL (130-400); RED BLOOD COUNT 3.81 10*6/uL (4.10-5.10); WHITE BLOOD COUNT 10.1 10*3/uL (4.8-10.8)
[2023-11-22 19:26] LABS: MANUAL DIFF REFLEX YES
[2023-11-22 19:38] LABS: BILIRUBIN Negative (Negative); BLOOD Negative (Negative); CLARITY Turbid (Clear); COLOR Yellow (Yellow); GLUCOSE Negative (Negative); KETONE Negative (Negative); LEUKO ESTERASE Trace (Negative); NITRITE Negative (Negative); SPECIFIC GRAVITY 1.015 (1.001-1.030)
[2023-11-22 19:40] LABS: BUN 13 mg/dl (9-23); CHLORIDE 88 mmol/L (98-107); POTASSIUM 3.5 mmol/L (3.4-5.1)
[2023-11-22 19:44] LABS: BACTERIA 2+; PH 8.5 (4.5-8.0)
[2023-11-22] MEDS ORDERED: DIAZEPAM 10 MG/2 ML SYR IV ONE (19:45)
[2023-11-22 19:51] LABS: PLATELET SUFFICIENCY NORMAL (NORMAL); TOTAL CELLS COUNTED 100 #CELLS
[2023-11-22] MEDS ORDERED: Ceftriaxone Sodium 1 GM/10 ML SYR IV ONE (19:55)
[2023-11-22 20:17] LABS: ABG BASE EXCESS 21.2 mmol/L (-2.0-2.0); ARTERIAL BLOOD GAS PH 7.374 (7.35-7.45)
[2023-11-22] MEDS ORDERED: ACETAMINOPHEN 650 MG SUPP R PRN (21:20)
[2023-11-22] MEDS ORDERED: BISACODYL 10 MG SUPP R PRN (21:20)
[2023-11-22] MEDS ORDERED: ACETAMINOPHEN 325 MG TAB PO PRN (21:20)
[2023-11-22] MEDS ORDERED: Ondansetron Hydrochloride 4 MG/2 ML VIAL IV PRN (21:20)
[2023-11-22] MEDS ORDERED: BISACODYL 5 MG TAB PO PRN (21:20)
[2023-11-22] MEDS ORDERED: Albuterol Sulf/Ipratropium 3 ML VIAL NEB SCH (21:25)
[2023-11-22 21:26] VITALS: BP 117/52
[2023-11-22] MEDS ORDERED: LORazepam 0.5 MG TAB PO PRN (21:30)
[2023-11-22] MEDS ORDERED: SODIUM CHLORIDE 0.9% 1,000 ML IV ONE (21:35)
[2023-11-22 21:40] VITALS: BP 117/50
[2023-11-23] VITALS: BP 109/50
[2023-11-23] MEDS ORDERED: methylPREDNISolone sod succ 40 MG VIAL IV SCH (06:00)
[2023-11-23 06:05] LABS: HEMATOCRIT 33.5 % (37.0-47.0); MEAN CELL VOLUME 94.1 fl (81.0-99.0); MEAN CORPUSCULAR HGB 26.7 pg (27.0-31.0); MEAN CORPUSCULAR HGB CONC 28.4 g/dl (33.0-37.0); MEAN PLATELET VOLUME 9.4 fl (9.6-12.3); PLATELET COUNT AUTOMATED 239 10*3/uL (130-400); RED BLOOD COUNT 3.56 10*6/uL (4.10-5.10); RED CELL DISTRI WIDTH 13.9 % (0-14.5); WHITE BLOOD COUNT 4.9 10*3/uL (4.8-10.8)
[2023-11-23 06:08] LABS: ALKALINE PHOSPHATASE 68 U/L (46-116); BUN 11 mg/dl (9-23); CHLORIDE 91 mmol/L (98-107); POTASSIUM 4.1 mmol/L (3.4-5.1); SGPT/ALT 20 U/L (5-49); TOTAL PROTEIN 5.7 gm/dL (6.0-8.0)
[2023-11-23 06:12] LABS: MANUAL DIFF REFLEX YES
[2023-11-23 07:43] LABS: BASOPHILS 1 % (0-1); PLATELET SUFFICIENCY NORMAL (NORMAL); TOTAL CELLS COUNTED 100 #CELLS
[2023-11-23 07:44] LABS: POLYCHROMASIA SLIGHT
[2023-11-23 08:00] VITALS: BP 119/50; BP 123/47
[2023-11-23] MEDS ORDERED: LEVOFLOXACIN 150 ML IV SCH (10:00)
[2023-11-23] MEDS ORDERED: FUROSEMIDE 20 MG TAB PO SCH (10:00)
[2023-11-23] MEDS ORDERED: Enoxaparin Sodium 40 MG/0.4 ML SYR SC SCH (10:00)
[2023-11-23] MEDS ORDERED: ATORVASTATIN CALCIUM 40 MG TABLET PO SCH (10:00)
[2023-11-23 12:00] VITALS: BP 107/50
[2023-11-23] MEDS ORDERED: acetaZOLAMIDE 250 MG TAB PO SCH (15:05)
[2023-11-23 16:00] VITALS: BP 123/62
[2023-11-23 20:00] VITALS: BP 111/56
[2023-11-24] VITALS: BP 116/65
[2023-11-24 06:09] LABS: BASO % 0.1 % (0.0-1.0); EOS % 0.1 % (1.0-4.0); HEMATOCRIT 33.5 % (37.0-47.0); LYMPH # 0.8 10*3/uL (1.3-4.4); LYMPH % 8.8 % (27.0-41.0); MEAN CELL VOLUME 93.1 fl (81.0-99.0); MEAN CORPUSCULAR HGB 26.4 pg (27.0-31.0); MEAN CORPUSCULAR HGB CONC 28.4 g/dl (33.0-37.0); MEAN PLATELET VOLUME 9.5 fl (9.6-12.3); MONO # 0.7 10*3/uL (0.1-1.0); MONO % 7.7 % (3.0-9.0); NEUT # 7.9 10*3/uL (2.3-7.9); NEUT % 83.1 % (47.0-73.0); PLATELET COUNT AUTOMATED 291 10*3/uL (130-400); RED CELL DISTRI WIDTH 14.2 % (0-14.5); WHITE BLOOD COUNT 9.5 10*3/uL (4.8-10.8)
[2023-11-24 06:28] LABS: BUN 13 mg/dl (9-23); CHLORIDE 97 mmol/L (98-107); POTASSIUM 3.4 mmol/L (3.4-5.1)
[2023-11-24 08:00] VITALS: BP 100/40
[2023-11-24] MEDS ORDERED: AZITHROMYCIN 250 MG TAB PO SCH (10:00)
[2023-11-24 12:00] VITALS: BP 103/60
[2023-11-24 16:00] VITALS: BP 116/55
[2023-11-24 20:00] VITALS: BP 103/51
[2023-11-25] VITALS: BP 108/49
[2023-11-25 06:24] LABS: BUN 14 mg/dl (9-23); CHLORIDE 95 mmol/L (98-107)
[2023-11-25] MEDS ORDERED: POTASSIUM CHLORIDE 20 MEQ TAB PO ONE (07:30)
[2023-11-25 08:00] VITALS: BP 100/52
[2023-11-25] MEDS ORDERED: Nicotine 14 MG PATCH T SCH (10:00)
[2023-11-25 12:00] VITALS: BP 112/53
== END 2023-11-25 13:05 | disposition home or self-care (01) | DRG 140 ==
LOC: ED 18:45 → 4E 20:49 → EDHOLD 20:49 → 4E 21:37
PROVIDERS: Internal Medicine; Nurse Practitioner; Student in an Organized Health Care Education/Training Program; ADMIT Internal Medicine; ATTEND Internal Medicine
PROC: 5A09357 Assistance with Respiratory Ventilation, Less than 24 Consecutive Hours, Continuous Positive Airway Pressure (ICD-10-PCS; principal; 2023-11-24)
DX: J44.1 Chronic obstructive pulmonary disease with (acute) exacerbation (principal); J96.02 Acute respiratory failure with hypercapnia; J96.01 Acute respiratory failure with hypoxia; E43 Unspecified severe protein-calorie malnutrition; E87.3 Alkalosis; N39.0 Urinary tract infection, site not specified; F41.1 Generalized anxiety disorder; F17.210 Nicotine dependence, cigarettes, uncomplicated; I50.32 Chronic diastolic (congestive) heart failure; E78.5 Hyperlipidemia, unspecified; M81.0 Age-related osteoporosis without current pathological fracture; R73.9 Hyperglycemia, unspecified; E87.8 Other disorders of electrolyte and fluid balance, not elsewhere classified; D64.9 Anemia, unspecified; E55.9 Vitamin D deficiency, unspecified; Z88.8 Allergy status to other drugs, medicaments and biological substances; Z91.09 Other allergy status, other than to drugs and biological substances; Z79.899 Other long term (current) drug therapy; Z79.01 Long term (current) use of anticoagulants; Z79.2 Long term (current) use of antibiotics; Z98.891 History of uterine scar from previous surgery; Z90.49 Acquired absence of other specified parts of digestive tract; Z80.52 Family history of malignant neoplasm of bladder; Z83.3 Family history of diabetes mellitus; Z68.1 Body mass index [BMI] 19.9 or less, adult

== ENCOUNTER 2023-12-04 12:17 | Inpatient (IN) | payer OTHER ==
[~2023-12-04] VITALS: Ht 152.4 cm; Wt 37.8 kg
[2023-12-04 12:25] VITALS: BP 89/43
[2023-12-04] MEDS ORDERED: Albuterol Sulf/Ipratropium 3 ML VIAL NEB ONE (12:25)
[2023-12-04] MEDS ORDERED: methylPREDNISolone sod succ 125 MG VIAL IV ONE (12:25)
[2023-12-04] MEDS ORDERED: Tdap Vaccine 0.5 ML SYR (Adult Vaccine) IM ONE (12:40)
[2023-12-04] MEDS ORDERED: Bacitracin Zinc 14 GM TUBE T ONE (12:40)
[2023-12-04 12:46] LABS: BASO % 0.2 % (0.0-1.0); EOS # 0.2 10*3/uL (0.0-0.4); EOS % 2.1 % (1.0-4.0); HEMATOCRIT 36.5 % (37.0-47.0); LYMPH # 1.2 10*3/uL (1.3-4.4); MEAN CELL VOLUME 94.8 fl (81.0-99.0); MEAN CORPUSCULAR HGB 26.8 pg (27.0-31.0); MEAN CORPUSCULAR HGB CONC 28.2 g/dl (33.0-37.0); MEAN PLATELET VOLUME 8.8 fl (9.6-12.3); MONO # 0.9 10*3/uL (0.1-1.0); MONO % 8.3 % (3.0-9.0); NEUT # 8.3 10*3/uL (2.3-7.9); PLATELET COUNT AUTOMATED 365 10*3/uL (130-400); RED BLOOD COUNT 3.85 10*6/uL (4.10-5.10); RED CELL DISTRI WIDTH 14.2 % (0-14.5); WHITE BLOOD COUNT 10.6 10*3/uL (4.8-10.8)
[2023-12-04 13:09] LABS: BUN 12 mg/dl (9-23); CHLORIDE 84 mmol/L (98-107); POTASSIUM 2.6 mmol/L (3.4-5.1)
[2023-12-04] MEDS ORDERED: POTASSIUM CHLORIDE 20 MEQ TAB PO ONE (13:20)
[2023-12-04] MEDS ORDERED: SODIUM CHLORIDE 0.9% 500 ML IV ONE (13:55)
[2023-12-04 14:08] LABS: ARTERIAL BLOOD GAS PH 7.411 (7.35-7.45)
[2023-12-04 14:21] VITALS: BP 106/36
[2023-12-04] MEDS ORDERED: Ceftriaxone Sodium 1 GM/10 ML SYR IV ONE (14:25)
[2023-12-04] MEDS ORDERED: AZITHROMYCIN 250 ML IV ONE (14:25)
[2023-12-04] MEDS ORDERED: BISACODYL 5 MG TAB PO PRN (15:20)
[2023-12-04] MEDS ORDERED: ACETAMINOPHEN 650 MG SUPP R PRN (15:20)
[2023-12-04] MEDS ORDERED: Magnesium Hydroxide 30 ML UDC PO PRN (15:20)
[2023-12-04] MEDS ORDERED: ACETAMINOPHEN 325 MG TAB PO PRN (15:20)
[2023-12-04] MEDS ORDERED: BISACODYL 10 MG SUPP R PRN (15:20)
[2023-12-04] MEDS ORDERED: FOAM BANDAGE 5X5 T ONE (15:24)
[2023-12-04] MEDS ORDERED: Ondansetron Hydrochloride 4 MG/2 ML VIAL IV PRN (15:40)
[2023-12-04] MEDS ORDERED: Albuterol Sulf/Ipratropium 3 ML VIAL NEB PRN (15:40)
[2023-12-04 17:11] VITALS: BP 118/66
[2023-12-04 17:30] VITALS: BP 130/85
[2023-12-04 20:00] VITALS: BP 119/59
[2023-12-04] MEDS ORDERED: GUAIFENESIN 600 MG TAB ER PO SCH (22:00)
[2023-12-05] VITALS: BP 98/54
[2023-12-05 06:27] LABS: BASO % 0.1 % (0.0-1.0); HEMATOCRIT 32.4 % (37.0-47.0); LYMPH # 0.6 10*3/uL (1.3-4.4); LYMPH % 7.3 % (27.0-41.0); MEAN CELL VOLUME 94.2 fl (81.0-99.0); MEAN CORPUSCULAR HGB 26.5 pg (27.0-31.0); MEAN CORPUSCULAR HGB CONC 28.1 g/dl (33.0-37.0); MEAN PLATELET VOLUME 9.4 fl (9.6-12.3); MONO # 0.7 10*3/uL (0.1-1.0); MONO % 8.8 % (3.0-9.0); NEUT # 6.7 10*3/uL (2.3-7.9); NEUT % 83.4 % (47.0-73.0); PLATELET COUNT AUTOMATED 344 10*3/uL (130-400); RED BLOOD COUNT 3.44 10*6/uL (4.10-5.10); RED CELL DISTRI WIDTH 14.3 % (0-14.5)
[2023-12-05 06:44] LABS: ALKALINE PHOSPHATASE 80 U/L (46-116); BUN 8 mg/dl (9-23); CHLORIDE 90 mmol/L (98-107); POTASSIUM 3.4 mmol/L (3.4-5.1); SGPT/ALT 21 U/L (5-49); TOTAL PROTEIN 5.2 gm/dL (6.0-8.0)
[2023-12-05 08:00] VITALS: BP 100/48
[2023-12-05] MEDS ORDERED: FOAM BANDAGE HEEL T ONE (09:02)
[2023-12-05] MEDS ORDERED: FOAM BANDAGE 6X6 T ONE (09:02)
[2023-12-05] MEDS ORDERED: FOAM BANDAGE 5X5 T ONE (09:02)
[2023-12-05] MEDS ORDERED: methylPREDNISolone sod succ 40 MG VIAL IV SCH (10:00)
[2023-12-05] MEDS ORDERED: Enoxaparin Sodium 40 MG/0.4 ML SYR SC SCH (10:00)
[2023-12-05] MEDS ORDERED: ANORO ELLIPTA INH SCH (10:00)
[2023-12-05] MEDS ORDERED: ATORVASTATIN CALCIUM 40 MG TABLET PO SCH (10:00)
[2023-12-05] MEDS ORDERED: Cholecalciferol 5,000 IU CAP (125 MCG) PO SCH (10:00)
[2023-12-05 12:00] VITALS: BP 102/44
[2023-12-05] MEDS ORDERED: hydrOXYzine pamoate 25 MG CAP PO PRN (12:00)
[2023-12-05] MEDS ORDERED: AZITHROMYCIN 250 ML IV SCH (15:00)
[2023-12-05] MEDS ORDERED: Ceftriaxone Sodium 1 GM in SYRINGE INFUSION 10 ML IV SCH (16:00)
[2023-12-05 16:32] VITALS: BP 115/54
[2023-12-05 20:00] VITALS: BP 118/52
[2023-12-06] VITALS: BP 135/58
[2023-12-06 06:50] LABS: HEMATOCRIT 31.8 % (37.0-47.0); MEAN CELL VOLUME 93.3 fl (81.0-99.0); MEAN CORPUSCULAR HGB 26.4 pg (27.0-31.0); MEAN CORPUSCULAR HGB CONC 28.3 g/dl (33.0-37.0); MEAN PLATELET VOLUME 9.4 fl (9.6-12.3); PLATELET COUNT AUTOMATED 355 10*3/uL (130-400); RED BLOOD COUNT 3.41 10*6/uL (4.10-5.10); RED CELL DISTRI WIDTH 14.5 % (0-14.5); WHITE BLOOD COUNT 10.5 10*3/uL (4.8-10.8)
[2023-12-06 06:54] LABS: MANUAL DIFF REFLEX YES
[2023-12-06 07:07] LABS: BUN 11 mg/dl (9-23); CHLORIDE 89 mmol/L (98-107); POTASSIUM 3.6 mmol/L (3.4-5.1)
[2023-12-06 07:59] LABS: PLATELET SUFFICIENCY NORMAL (NORMAL); STOMATOCYTE FEW; TOTAL CELLS COUNTED 100 #CELLS
[2023-12-06 08:00] VITALS: BP 116/55
[2023-12-06 12:00] VITALS: BP 116/55
[2023-12-06] MEDS ORDERED: OMNICEF300 MG PO (15:22)
[2023-12-06 16:00] VITALS: BP 108/50
== END 2023-12-06 17:39 | DRG 140 ==
LOC: ED 12:17 → 5E 14:26 → EDHOLD 14:26 → 5E 16:01
PROVIDERS: Nurse Practitioner Family; Student in an Organized Health Care Education/Training Program; ADMIT Internal Medicine; ATTEND Internal Medicine
PROC: 5A09357 Assistance with Respiratory Ventilation, Less than 24 Consecutive Hours, Continuous Positive Airway Pressure (ICD-10-PCS; principal; 2023-12-04)
DX: J44.1 Chronic obstructive pulmonary disease with (acute) exacerbation (principal); J96.21 Acute and chronic respiratory failure with hypoxia; J96.22 Acute and chronic respiratory failure with hypercapnia; E43 Unspecified severe protein-calorie malnutrition; L89.151 Pressure ulcer of sacral region, stage 1; E87.3 Alkalosis; I50.32 Chronic diastolic (congestive) heart failure; E78.5 Hyperlipidemia, unspecified; F41.1 Generalized anxiety disorder; M81.0 Age-related osteoporosis without current pathological fracture; D64.9 Anemia, unspecified; E87.6 Hypokalemia; R73.9 Hyperglycemia, unspecified; E78.2 Mixed hyperlipidemia; R53.81 Other malaise; S51.011A Laceration without foreign body of right elbow, initial encounter; Z88.1 Allergy status to other antibiotic agents; Z88.8 Allergy status to other drugs, medicaments and biological substances; Z98.51 Tubal ligation status; Z98.891 History of uterine scar from previous surgery; Z80.0 Family history of malignant neoplasm of digestive organs; Z68.1 Body mass index [BMI] 19.9 or less, adult

== ENCOUNTER 2023-12-26 19:44 | Inpatient (IN) | payer OTHER ==
[~2023-12-26] VITALS: Ht 157.4 cm; Wt 36.9 kg
[~2023-12-26 19:44] MED LIST changes: +OMNICEF300 MG PO
[2023-12-26 19:47] VITALS: BP 109/41
[2023-12-26 20:04] LABS: BASO # 0.1 10*3/uL (0.0-0.1); BASO % 0.8 % (0.0-1.0); EOS # 0.1 10*3/uL (0.0-0.4); EOS % 1.3 % (1.0-4.0); HEMATOCRIT 33.5 % (37.0-47.0); LYMPH % 15.2 % (27.0-41.0); MEAN CELL VOLUME 93.8 fl (81.0-99.0); MEAN CORPUSCULAR HGB 26.3 pg (27.0-31.0); MEAN CORPUSCULAR HGB CONC 28.1 g/dl (33.0-37.0); MEAN PLATELET VOLUME 8.2 fl (9.6-12.3); MONO # 0.7 10*3/uL (0.1-1.0); NEUT # 4.5 10*3/uL (2.3-7.9); NEUT % 71.1 % (47.0-73.0); PLATELET COUNT AUTOMATED 415 10*3/uL (130-400); RED BLOOD COUNT 3.57 10*6/uL (4.10-5.10); RED CELL DISTRI WIDTH 14.2 % (0-14.5); WHITE BLOOD COUNT 6.4 10*3/uL (4.8-10.8)
[2023-12-26] MEDS ORDERED: Ondansetron Hydrochloride 4 MG/2 ML VIAL IV ONE (20:05)
[2023-12-26 20:14] LABS: ACT PARTIAL THROMBO TIME 30.9 SECONDS (20.0-32.1)
[2023-12-26] MEDS ORDERED: Albuterol Sulf/Ipratropium 3 ML VIAL NEB ONE (20:15)
[2023-12-26] MEDS ORDERED: methylPREDNISolone sod succ 125 MG VIAL IV ONE (20:15)
[2023-12-26 20:21] LABS: ALKALINE PHOSPHATASE 134 U/L (46-116); BUN 14 mg/dl (9-23); CHLORIDE 87 mmol/L (98-107); SGPT/ALT 9 U/L (5-49); TOTAL PROTEIN 6.8 gm/dL (6.0-8.0)
[2023-12-26 21:09] VITALS: BP 110/52
[2023-12-26 21:46] VITALS: BP 116/50
[2023-12-26] MEDS ORDERED: POTASSIUM CHLORIDE 20 MEQ TAB PO ONE (22:35)
[2023-12-26] MEDS ORDERED: LEVOFLOXACIN 100 ML IV ONE (22:38)
[2023-12-26 22:45] VITALS: BP 109/56
[2023-12-26] MEDS ORDERED: Acetaminophen/Hydrocodone 5 MG/325 MG TABLET PO PRN (22:55)
[2023-12-26] MEDS ORDERED: BISACODYL 5 MG TAB PO PRN (22:55)
[2023-12-26] MEDS ORDERED: Magnesium Hydroxide 30 ML UDC PO PRN (22:55)
[2023-12-26] MEDS ORDERED: BISACODYL 10 MG SUPP R PRN (22:55)
[2023-12-26] MEDS ORDERED: ACETAMINOPHEN 325 MG TAB PO PRN (22:55)
[2023-12-26] MEDS ORDERED: Ondansetron Hydrochloride 4 MG/2 ML VIAL IV PRN (22:55)
[2023-12-26] MEDS ORDERED: ACETAMINOPHEN 650 MG SUPP R PRN (22:55)
[2023-12-26] MEDS ORDERED: TEMAZEPAM 15 MG CAP PO PRN (22:55)
[2023-12-26] MEDS ORDERED: hydrOXYzine pamoate 25 MG CAP PO PRN (23:00)
[2023-12-26] MEDS ORDERED: Albuterol Sulf/Ipratropium 3 ML VIAL NEB PRN (23:00)
[2023-12-26 23:45] VITALS: BP 94/46
[2023-12-27] VITALS (16 sets, daily range): BP systolic 80–125; BP diastolic 37–60
[2023-12-27] MEDS ORDERED: POTASSIUM CHLO20 ME4 PO (00:11)
[2023-12-27] MEDS ORDERED: SODIUM CHLORIDE 0.9% 500 ML IV ONE ×2 (00:40→00:52)
[2023-12-27 05:44] LABS: BUN 12 mg/dl (9-23); CHLORIDE 90 mmol/L (98-107)
[2023-12-27 05:58] LABS: BASO % 0.2 % (0.0-1.0); HEMATOCRIT 31.4 % (37.0-47.0); LYMPH # 0.4 10*3/uL (1.3-4.4); LYMPH % 8.2 % (27.0-41.0); MEAN CORPUSCULAR HGB 26.3 pg (27.0-31.0); MONO # 0.1 10*3/uL (0.1-1.0); MONO % 1.1 % (3.0-9.0); NEUT # 3.9 10*3/uL (2.3-7.9); NEUT % 89.4 % (47.0-73.0); PLATELET COUNT AUTOMATED 390 10*3/uL (130-400); RED BLOOD COUNT 3.34 10*6/uL (4.10-5.10); RED CELL DISTRI WIDTH 14.3 % (0-14.5); WHITE BLOOD COUNT 4.4 10*3/uL (4.8-10.8)
[2023-12-27 09:38] LABS: ABG BASE EXCESS 17.7 mmol/L (-2.0-2.0); ARTERIAL BLOOD GAS PH 7.399 (7.35-7.45)
[2023-12-27] MEDS ORDERED: Enoxaparin Sodium 40 MG/0.4 ML SYR SC SCH (10:00)
[2023-12-27] MEDS ORDERED: methylPREDNISolone sod succ 40 MG VIAL IV SCH (10:00)
[2023-12-27] MEDS ORDERED: GUAIFENESIN 600 MG TAB ER PO SCH (10:00)
[2023-12-27] MEDS ORDERED: Albuterol Sulf/Ipratropium 3 ML VIAL NEB ONE (21:05)
[2023-12-27] MEDS ORDERED: LEVOFLOXACIN 150 ML IV SCH (22:00)
[2023-12-28 00:08] VITALS: BP 119/66
[2023-12-28] MEDS ORDERED: LORazepam 0.5 MG TAB PO ONE (00:45)
[2023-12-28] MEDS ORDERED: methylPREDNISolone sod succ 40 MG VIAL IV SCH (06:00)
[2023-12-28 06:18] LABS: HEMATOCRIT 29.7 % (37.0-47.0); LYMPH # 0.6 10*3/uL (1.3-4.4); LYMPH % 14.4 % (27.0-41.0); MEAN CELL VOLUME 91.4 fl (81.0-99.0); MEAN CORPUSCULAR HGB 26.2 pg (27.0-31.0); MEAN CORPUSCULAR HGB CONC 28.6 g/dl (33.0-37.0); MEAN PLATELET VOLUME 8.6 fl (9.6-12.3); MONO # 0.2 10*3/uL (0.1-1.0); MONO % 4.1 % (3.0-9.0); NEUT # 3.6 10*3/uL (2.3-7.9); PLATELET COUNT AUTOMATED 420 10*3/uL (130-400); RED BLOOD COUNT 3.25 10*6/uL (4.10-5.10); RED CELL DISTRI WIDTH 14.3 % (0-14.5); WHITE BLOOD COUNT 4.4 10*3/uL (4.8-10.8)
[2023-12-28 06:40] LABS: BUN 14 mg/dl (9-23); CHLORIDE 89 mmol/L (98-107); POTASSIUM 4.4 mmol/L (3.4-5.1)
[2023-12-28 08:00] VITALS: BP 114/57
[2023-12-28 12:00] VITALS: BP 118/59
[2023-12-28] MEDS ORDERED: acetaZOLAMIDE 250 MG TAB PO SCH (13:20)
[2023-12-28 16:00] VITALS: BP 125/48
[2023-12-28 20:00] VITALS: BP 110/61
[2023-12-29] VITALS: BP 117/57
[2023-12-29 07:16] LABS: HEMATOCRIT 28.6 % (37.0-47.0); LYMPH # 0.8 10*3/uL (1.3-4.4); LYMPH % 14.8 % (27.0-41.0); MEAN CORPUSCULAR HGB 26.4 pg (27.0-31.0); MEAN CORPUSCULAR HGB CONC 28.7 g/dl (33.0-37.0); MEAN PLATELET VOLUME 8.5 fl (9.6-12.3); MONO # 0.5 10*3/uL (0.1-1.0); MONO % 8.6 % (3.0-9.0); NEUT # 3.9 10*3/uL (2.3-7.9); NEUT % 75.3 % (47.0-73.0); PLATELET COUNT AUTOMATED 449 10*3/uL (130-400); RED BLOOD COUNT 3.11 10*6/uL (4.10-5.10); RED CELL DISTRI WIDTH 14.7 % (0-14.5); WHITE BLOOD COUNT 5.2 10*3/uL (4.8-10.8)
[2023-12-29 08:00] VITALS: BP 108/52
[2023-12-29 12:00] VITALS: BP 120/62
[2023-12-29] MEDS ORDERED: ACETAZOLAMIDE250 MG PO (13:03)
[2023-12-29] MEDS ORDERED: MUCUS RELIEF600 MG PO (13:03)
[2023-12-29] MEDS ORDERED: methylPREDNISolone sod succ 40 MG VIAL IV SCH (18:00)
== END 2023-12-29 15:38 | disposition home or self-care (01) | DRG 720 ==
LOC: ED 19:44 → EDHOLD 22:46 → 4E 22:46 → EDHOLD 12-27 00:37 → 4E 12-27 13:39
PROVIDERS: Emergency Medicine; Student in an Organized Health Care Education/Training Program; ADMIT Internal Medicine; ATTEND Internal Medicine
PROC: 5A09357 Assistance with Respiratory Ventilation, Less than 24 Consecutive Hours, Continuous Positive Airway Pressure (ICD-10-PCS; principal; 2023-12-26)
DX: A41.9 Sepsis, unspecified organism (principal); J96.21 Acute and chronic respiratory failure with hypoxia; J96.22 Acute and chronic respiratory failure with hypercapnia; E43 Unspecified severe protein-calorie malnutrition; J15.69 Pneumonia due to other Gram-negative bacteria; J44.1 Chronic obstructive pulmonary disease with (acute) exacerbation; E87.3 Alkalosis; J44.0 Chronic obstructive pulmonary disease with (acute) lower respiratory infection; R65.20 Severe sepsis without septic shock; E55.9 Vitamin D deficiency, unspecified; I50.32 Chronic diastolic (congestive) heart failure; E78.5 Hyperlipidemia, unspecified; M81.0 Age-related osteoporosis without current pathological fracture; R73.9 Hyperglycemia, unspecified; E87.6 Hypokalemia; F41.1 Generalized anxiety disorder; D75.839 Thrombocytosis, unspecified; D50.9 Iron deficiency anemia, unspecified; R53.81 Other malaise; F17.210 Nicotine dependence, cigarettes, uncomplicated; Z88.1 Allergy status to other antibiotic agents; Z88.8 Allergy status to other drugs, medicaments and biological substances; Z90.49 Acquired absence of other specified parts of digestive tract; Z98.891 History of uterine scar from previous surgery; Z98.51 Tubal ligation status; Z80.0 Family history of malignant neoplasm of digestive organs; Z71.6 Tobacco abuse counseling; Z91.199 Patient's noncompliance with other medical treatment and regimen due to unspecified reason; Z68.1 Body mass index [BMI] 19.9 or less, adult

== ENCOUNTER 2024-02-14 20:44 | Inpatient (IN) | payer OTHER ==
[~2024-02-14] VITALS: Ht 157.4 cm; Wt 38.8 kg
[2024-02-14 20:44] VITALS: BP 114/56
[~2024-02-14 20:44] MED LIST changes: +POTASSIUM CHLO20 ME4 PO
[2024-02-14 21:31] LABS: BASO % 0.2 % (0.0-1.0); EOS # 0.1 10*3/uL (0.0-0.4); EOS % 0.5 % (1.0-4.0); HEMATOCRIT 31.7 % (37.0-47.0); LYMPH # 1.3 10*3/uL (1.3-4.4); MEAN CELL VOLUME 95.5 fl (81.0-99.0); MEAN CORPUSCULAR HGB 27.4 pg (27.0-31.0); MEAN CORPUSCULAR HGB CONC 28.7 g/dl (33.0-37.0); MEAN PLATELET VOLUME 8.7 fl (9.6-12.3); MONO % 8.9 % (3.0-9.0); NEUT # 8.7 10*3/uL (2.3-7.9); NEUT % 78.1 % (47.0-73.0); PLATELET COUNT AUTOMATED 367 10*3/uL (130-400); RED BLOOD COUNT 3.32 10*6/uL (4.10-5.10); RED CELL DISTRI WIDTH 14.7 % (0-14.5); WHITE BLOOD COUNT 11.1 10*3/uL (4.8-10.8)
[2024-02-14 21:41] LABS: ACT PARTIAL THROMBO TIME 23.9 SECONDS (20.0-32.1)
[2024-02-14 21:53] LABS: ALKALINE PHOSPHATASE 95 U/L (46-116); BUN 19 mg/dl (9-23); CHLORIDE 88 mmol/L (98-107); POTASSIUM 3.1 mmol/L (3.4-5.1); SGPT/ALT 20 U/L (5-49)
[2024-02-14 22:27] VITALS: BP 107/49
[2024-02-14 22:28] LABS: ABG BASE EXCESS 13.2 mmol/L (-2.0-2.0); ARTERIAL BLOOD GAS PH 7.344 (7.35-7.45)
[2024-02-14] MEDS ORDERED: AZITHROMYCIN 250 ML IV ONE (22:35)
[2024-02-14] MEDS ORDERED: Midazolam Hydrochloride 2 MG/2 ML VIAL IV ONE (22:35)
[2024-02-14] MEDS ORDERED: methylPREDNISolone sod succ 125 MG VIAL IV ONE (22:35)
[2024-02-14] MEDS ORDERED: Ceftriaxone Sodium 1 GM/10 ML SYR IV ONE (22:35)
[2024-02-14 23:02] VITALS: BP 104/43
[2024-02-14 23:18] VITALS: BP 86/42
[2024-02-14 23:29] VITALS: BP 85/45
[2024-02-14] MEDS ORDERED: SODIUM CHLORIDE 0.9% 500 ML IV ONE (23:30)
[2024-02-14 23:50] VITALS: BP 92/47
[2024-02-15] VITALS (7 sets, daily range): BP systolic 96–121; BP diastolic 44–61
[2024-02-15] MEDS ORDERED: POTASSIUM CHLORIDE IN WATER 100 ML IV SCH
[2024-02-15] MEDS ORDERED: ACETAMINOPHEN 650 MG SUPP R PRN (01:05)
[2024-02-15] MEDS ORDERED: Ondansetron Hydrochloride 4 MG/2 ML VIAL IV PRN (01:05)
[2024-02-15] MEDS ORDERED: BISACODYL 10 MG SUPP R PRN (01:05)
[2024-02-15] MEDS ORDERED: Magnesium Hydroxide 30 ML UDC PO PRN (01:05)
[2024-02-15] MEDS ORDERED: BISACODYL 5 MG TAB PO PRN (01:05)
[2024-02-15] MEDS ORDERED: ACETAMINOPHEN 325 MG TAB PO PRN (01:05)
[2024-02-15] MEDS ORDERED: hydrOXYzine pamoate 25 MG CAP PO PRN (01:15)
[2024-02-15] MEDS ORDERED: Albuterol Sulf/Ipratropium 3 ML VIAL NEB SCH (02:00)
[2024-02-15 06:14] LABS: ALKALINE PHOSPHATASE 88 U/L (46-116); BUN 17 mg/dl (9-23); CHLORIDE 95 mmol/L (98-107); SGPT/ALT 19 U/L (5-49); TOTAL PROTEIN 5.9 gm/dL (6.0-8.0)
[2024-02-15 06:15] LABS: POTASSIUM 4.5 mmol/L (3.4-5.1)
[2024-02-15 06:17] LABS: HEMATOCRIT 31.4 % (37.0-47.0); MEAN CELL VOLUME 94.6 fl (81.0-99.0); MEAN CORPUSCULAR HGB 27.4 pg (27.0-31.0); MEAN PLATELET VOLUME 9.6 fl (9.6-12.3); PLATELET COUNT AUTOMATED 329 10*3/uL (130-400); RED BLOOD COUNT 3.32 10*6/uL (4.10-5.10); RED CELL DISTRI WIDTH 14.9 % (0-14.5); WHITE BLOOD COUNT 12.1 10*3/uL (4.8-10.8)
[2024-02-15 06:30] LABS: MANUAL DIFF REFLEX YES
[2024-02-15] MEDS ORDERED: methylPREDNISolone sod succ 40 MG VIAL IV SCH ×2 (07:05→10:00)
[2024-02-15 07:39] LABS: PLATELET SUFFICIENCY NORMAL (NORMAL); TOTAL CELLS COUNTED 100 #CELLS
[2024-02-15] MEDS ORDERED: FUROSEMIDE 20 MG TAB PO SCH (10:00)
[2024-02-15] MEDS ORDERED: GUAIFENESIN 600 MG TAB ER PO SCH (10:00)
[2024-02-15] MEDS ORDERED: acetaZOLAMIDE 250 MG TAB PO SCH (10:00)
[2024-02-15] MEDS ORDERED: Enoxaparin Sodium 40 MG/0.4 ML SYR SC SCH (10:00)
[2024-02-15] MEDS ORDERED: ATORVASTATIN CALCIUM 40 MG TABLET PO SCH (10:00)
[2024-02-15] MEDS ORDERED: AZITHROMYCIN 250 ML IV SCH (22:00)
[2024-02-15] MEDS ORDERED: Ceftriaxone Sodium 1 GM in SYRINGE INFUSION 10 ML IV SCH (22:00)
[2024-02-16 00:11] VITALS: BP 108/47
[2024-02-16 07:26] LABS: BASO % 0.1 % (0.0-1.0); HEMATOCRIT 28.1 % (37.0-47.0); LYMPH # 0.6 10*3/uL (1.3-4.4); LYMPH % 5.3 % (27.0-41.0); MEAN CELL VOLUME 93.4 fl (81.0-99.0); MEAN CORPUSCULAR HGB 27.6 pg (27.0-31.0); MEAN CORPUSCULAR HGB CONC 29.5 g/dl (33.0-37.0); MEAN PLATELET VOLUME 9.2 fl (9.6-12.3); MONO # 0.5 10*3/uL (0.1-1.0); MONO % 4.3 % (3.0-9.0); NEUT # 10.6 10*3/uL (2.3-7.9); NEUT % 89.9 % (47.0-73.0); PLATELET COUNT AUTOMATED 305 10*3/uL (130-400); RED BLOOD COUNT 3.01 10*6/uL (4.10-5.10); WHITE BLOOD COUNT 11.8 10*3/uL (4.8-10.8)
[2024-02-16 07:49] LABS: BUN 20 mg/dl (9-23); CHLORIDE 93 mmol/L (98-107); POTASSIUM 3.6 mmol/L (3.4-5.1)
[2024-02-16 08:00] VITALS: BP 107/49
[2024-02-16] MEDS ORDERED: LORazepam 0.5 MG TAB PO ONE (09:35)
[2024-02-16] MEDS ORDERED: ANORO ELLIPTA INH SCH (10:00)
[2024-02-16 12:00] VITALS: BP 110/52
[2024-02-16 16:00] VITALS: BP 121/51
[2024-02-16 20:00] VITALS: BP 115/46
[2024-02-17] VITALS: BP 107/57
[2024-02-17 06:56] LABS: HEMATOCRIT 28.2 % (37.0-47.0); MEAN CORPUSCULAR HGB CONC 28.7 g/dl (33.0-37.0); MEAN PLATELET VOLUME 9.2 fl (9.6-12.3); PLATELET COUNT AUTOMATED 326 10*3/uL (130-400); RED CELL DISTRI WIDTH 15.5 % (0-14.5); WHITE BLOOD COUNT 12.1 10*3/uL (4.8-10.8)
[2024-02-17 06:57] LABS: MANUAL DIFF REFLEX YES
[2024-02-17 07:25] LABS: OVALOCYTES FEW; PLATELET SUFFICIENCY NORMAL (NORMAL); POLYCHROMASIA SLIGHT; TOTAL CELLS COUNTED 100 #CELLS
[2024-02-17 08:00] VITALS: BP 107/46
== END 2024-02-17 11:58 | disposition home or self-care (01) | DRG 133 ==
LOC: ED 20:44 → EDHOLD 02-15 00:21 → 4E 02-15 00:21
PROVIDERS: Internal Medicine; Student in an Organized Health Care Education/Training Program; ADMIT Internal Medicine; ATTEND Internal Medicine
PROC: 5A09357 Assistance with Respiratory Ventilation, Less than 24 Consecutive Hours, Continuous Positive Airway Pressure (ICD-10-PCS; principal; 2024-02-17)
DX: J96.02 Acute respiratory failure with hypercapnia (principal); E44.0 Moderate protein-calorie malnutrition; R65.10 Systemic inflammatory response syndrome (SIRS) of non-infectious origin without acute organ dysfunction; J44.1 Chronic obstructive pulmonary disease with (acute) exacerbation; E87.29 Other acidosis; E87.6 Hypokalemia; R73.9 Hyperglycemia, unspecified; D72.9 Disorder of white blood cells, unspecified; F17.210 Nicotine dependence, cigarettes, uncomplicated; E78.5 Hyperlipidemia, unspecified; E55.9 Vitamin D deficiency, unspecified; Z68.1 Body mass index [BMI] 19.9 or less, adult; F41.1 Generalized anxiety disorder; I50.32 Chronic diastolic (congestive) heart failure; Z71.6 Tobacco abuse counseling; Z88.1 Allergy status to other antibiotic agents; Z88.8 Allergy status to other drugs, medicaments and biological substances; Z90.49 Acquired absence of other specified parts of digestive tract; Z98.891 History of uterine scar from previous surgery; Z98.51 Tubal ligation status; Z80.52 Family history of malignant neoplasm of bladder

== ENCOUNTER 2024-03-23 12:48 | Inpatient (IN) | payer OTHER ==
[~2024-03-23] VITALS: Ht 157.5 cm; Wt 37.0 kg
[~2024-03-23 12:48] MED LIST changes: +DOXYCYCLINE MO100 MG PO; +VIBRA-TAB100 MG PO
[2024-03-23 12:58] VITALS: BP 104/48
[2024-03-23] MEDS ORDERED: methylPREDNISolone sod succ 125 MG VIAL IV ONE (13:10)
[2024-03-23] MEDS ORDERED: Albuterol Sulf/Ipratropium 3 ML VIAL NEB ONE (13:10)
[2024-03-23 13:18] LABS: HEMATOCRIT 30.7 % (37.0-47.0); MEAN CELL VOLUME 95.3 fl (81.0-99.0); MEAN CORPUSCULAR HGB 27.6 pg (27.0-31.0); MEAN PLATELET VOLUME 8.5 fl (9.6-12.3); PLATELET COUNT AUTOMATED 352 10*3/uL (130-400); RED BLOOD COUNT 3.22 10*6/uL (4.10-5.10); WHITE BLOOD COUNT 24.8 10*3/uL (4.8-10.8)
[2024-03-23 13:19] LABS: MANUAL DIFF REFLEX YES
[2024-03-23 13:37] LABS: TOTAL CELLS COUNTED 100 #CELLS
[2024-03-23 13:38] LABS: PLATELET SUFFICIENCY NORMAL (NORMAL)
[2024-03-23 13:40] LABS: MICROCYTOSIS MODERATE
[2024-03-23 13:49] LABS: ABG BASE EXCESS 24.9 mmol/L (-2.0-2.0); ARTERIAL BLOOD GAS PH 7.414 (7.35-7.45)
[2024-03-23 13:50] LABS: ALKALINE PHOSPHATASE 94 U/L (46-116); BUN 19 mg/dl (9-23); CHLORIDE 82 mmol/L (98-107); POTASSIUM 2.9 mmol/L (3.4-5.1); SGPT/ALT 27 U/L (5-49); TOTAL PROTEIN 6.5 gm/dL (6.0-8.0)
[2024-03-23] MEDS ORDERED: SODIUM CHLORIDE 0.9% 1,000 ML IV SCH (14:05)
[2024-03-23] MEDS ORDERED: Ceftriaxone Sodium 1 GM/10 ML SYR IV ONE (14:40)
[2024-03-23] MEDS ORDERED: AZITHROMYCIN 250 ML IV ONE (14:40)
[2024-03-23] MEDS ORDERED: LORazepam 2 MG/ML VIAL IV ONE (14:40)
[2024-03-23] MEDS ORDERED: POTASSIUM CHLORIDE IN WATER 100 ML IV SCH (15:00)
[2024-03-23] MEDS ORDERED: ACETAMINOPHEN 325 MG TAB PO PRN (16:00)
[2024-03-23] MEDS ORDERED: BISACODYL 5 MG TAB PO PRN (16:00)
[2024-03-23 17:17] VITALS: BP 101/51
[2024-03-23] MEDS ORDERED: Albuterol Sulf/Ipratropium 3 ML VIAL NEB PRN (17:40)
[2024-03-23 19:06] VITALS: BP 107/57
[2024-03-23 19:18] LABS: ABG BASE EXCESS 18.4 mmol/L (-2.0-2.0); ARTERIAL BLOOD GAS PH 7.39 (7.35-7.45)
[2024-03-23] MEDS ORDERED: GUAIFENESIN 600 MG TAB ER PO SCH (22:00)
[2024-03-24] VITALS (8 sets, daily range): BP systolic 107–126; BP diastolic 45–79
[2024-03-24] MEDS ORDERED: Pantoprazole Sodium 40 MG TAB PO SCH (06:00)
[2024-03-24 06:29] LABS: BASO % 0.1 % (0.0-1.0); HEMATOCRIT 26.4 % (37.0-47.0); LYMPH # 0.9 10*3/uL (1.3-4.4); LYMPH % 4.8 % (27.0-41.0); MEAN CELL VOLUME 92.6 fl (81.0-99.0); MEAN CORPUSCULAR HGB 28.1 pg (27.0-31.0); MEAN CORPUSCULAR HGB CONC 30.3 g/dl (33.0-37.0); MEAN PLATELET VOLUME 9.6 fl (9.6-12.3); MONO # 1.1 10*3/uL (0.1-1.0); MONO % 5.6 % (3.0-9.0); NEUT # 17.4 10*3/uL (2.3-7.9); NEUT % 89.1 % (47.0-73.0); PLATELET COUNT AUTOMATED 339 10*3/uL (130-400); RED BLOOD COUNT 2.85 10*6/uL (4.10-5.10); RED CELL DISTRI WIDTH 14.2 % (0-14.5); WHITE BLOOD COUNT 19.5 10*3/uL (4.8-10.8)
[2024-03-24 06:52] LABS: ALKALINE PHOSPHATASE 76 U/L (46-116); BUN 15 mg/dl (9-23); CHLORIDE 87 mmol/L (98-107); SGPT/ALT 23 U/L (5-49); TOTAL PROTEIN 5.6 gm/dL (6.0-8.0)
[2024-03-24] MEDS ORDERED: LEVOFLOXACIN 150 ML IV SCH (10:00)
[2024-03-24] MEDS ORDERED: Enoxaparin Sodium 40 MG/0.4 ML SYR SC SCH (10:00)
[2024-03-24] MEDS ORDERED: methylPREDNISolone sod succ 40 MG VIAL IV SCH (10:00)
[2024-03-24] MEDS ORDERED: LORazepam 2 MG/ML VIAL IV ONE (12:20)
[2024-03-24] MEDS ORDERED: FOAM BANDAGE 5X5 T ONE (22:00)
[2024-03-25] VITALS: BP 106/50
[2024-03-25 07:07] LABS: HEMATOCRIT 25.4 % (37.0-47.0); MEAN CELL VOLUME 92.4 fl (81.0-99.0); MEAN CORPUSCULAR HGB CONC 30.3 g/dl (33.0-37.0); MEAN PLATELET VOLUME 9.4 fl (9.6-12.3); PLATELET COUNT AUTOMATED 316 10*3/uL (130-400); RED BLOOD COUNT 2.75 10*6/uL (4.10-5.10); RED CELL DISTRI WIDTH 14.3 % (0-14.5); WHITE BLOOD COUNT 14.6 10*3/uL (4.8-10.8)
[2024-03-25 07:08] LABS: MANUAL DIFF REFLEX YES
[2024-03-25 07:18] LABS: BUN 13 mg/dl (9-23); CHLORIDE 90 mmol/L (98-107); POTASSIUM 3.9 mmol/L (3.4-5.1)
[2024-03-25 08:00] VITALS: BP 117/46
[2024-03-25 08:09] LABS: TOTAL CELLS COUNTED 100 #CELLS
[2024-03-25 08:12] LABS: MICROCYTOSIS SLIGHT; PLATELET SUFFICIENCY NORMAL (NORMAL)
[2024-03-25] MEDS ORDERED: LORazepam 2 MG/ML VIAL IV ONE (09:30)
[2024-03-25] MEDS ORDERED: Cholecalciferol 5,000 IU CAP (125 MCG) PO SCH (10:00)
[2024-03-25] MEDS ORDERED: acetaZOLAMIDE 250 MG TAB PO SCH (10:00)
[2024-03-25] MEDS ORDERED: ATORVASTATIN CALCIUM 40 MG TABLET PO SCH (10:00)
[2024-03-25] MEDS ORDERED: FUROSEMIDE 20 MG TAB PO SCH (10:00)
[2024-03-25 12:00] VITALS: BP 142/59
== END 2024-03-25 14:30 | disposition home or self-care (01) | DRG 140 ==
LOC: ED 12:48 → EDHOLD 15:34 → 4E 15:34 → EDHOLD 03-24 11:46 → 4E 03-24 21:02
PROVIDERS: Internal Medicine; Pediatrics; Student in an Organized Health Care Education/Training Program; ADMIT Internal Medicine; ATTEND Internal Medicine
PROC: 5A09357 Assistance with Respiratory Ventilation, Less than 24 Consecutive Hours, Continuous Positive Airway Pressure (ICD-10-PCS; principal; 2024-03-23)
PROC: 5A09357 Assistance with Respiratory Ventilation, Less than 24 Consecutive Hours, Continuous Positive Airway Pressure (ICD-10-PCS; 2024-03-24)
DX: J44.1 Chronic obstructive pulmonary disease with (acute) exacerbation (principal); E43 Unspecified severe protein-calorie malnutrition; R65.10 Systemic inflammatory response syndrome (SIRS) of non-infectious origin without acute organ dysfunction; J96.12 Chronic respiratory failure with hypercapnia; E87.1 Hypo-osmolality and hyponatremia; J96.11 Chronic respiratory failure with hypoxia; E87.6 Hypokalemia; I50.32 Chronic diastolic (congestive) heart failure; M81.0 Age-related osteoporosis without current pathological fracture; F41.1 Generalized anxiety disorder; E78.5 Hyperlipidemia, unspecified; D50.9 Iron deficiency anemia, unspecified; F17.210 Nicotine dependence, cigarettes, uncomplicated; Z68.1 Body mass index [BMI] 19.9 or less, adult; Z88.0 Allergy status to penicillin; Z88.8 Allergy status to other drugs, medicaments and biological substances; Z91.09 Other allergy status, other than to drugs and biological substances; Z79.899 Other long term (current) drug therapy; Z79.01 Long term (current) use of anticoagulants; Z79.2 Long term (current) use of antibiotics; Z90.49 Acquired absence of other specified parts of digestive tract; Z98.891 History of uterine scar from previous surgery; Z80.8 Family history of malignant neoplasm of other organs or systems; Z83.3 Family history of diabetes mellitus

== ENCOUNTER 2024-03-29 19:51 | Inpatient (IN) | payer OTHER ==
[~2024-03-29] VITALS: Ht 157.4 cm; Wt 34.1 kg
[2024-03-29 20:11] LABS: HEMATOCRIT 30.5 % (37.0-47.0); MEAN CELL VOLUME 94.7 fl (81.0-99.0); MEAN CORPUSCULAR HGB CONC 28.5 g/dl (33.0-37.0); MEAN PLATELET VOLUME 8.5 fl (9.6-12.3); PLATELET COUNT AUTOMATED 372 10*3/uL (130-400); RED BLOOD COUNT 3.22 10*6/uL (4.10-5.10); RED CELL DISTRI WIDTH 13.7 % (0-14.5); WHITE BLOOD COUNT 12.2 10*3/uL (4.8-10.8)
[2024-03-29 20:12] LABS: MANUAL DIFF REFLEX YES
[2024-03-29 20:16] VITALS: BP 99/57
[2024-03-29 20:27] LABS: ALKALINE PHOSPHATASE 98 U/L (46-116); BUN 20 mg/dl (9-23); CHLORIDE 83 mmol/L (98-107); SGPT/ALT 19 U/L (5-49); TOTAL PROTEIN 6.3 gm/dL (6.0-8.0)
[2024-03-29 20:33] LABS: PLATELET SUFFICIENCY NORMAL (NORMAL); TOTAL CELLS COUNTED 100 #CELLS
[2024-03-29 20:34] LABS: BURR CELLS FEW
[2024-03-29] MEDS ORDERED: methylPREDNISolone sod succ 125 MG VIAL IV ONE (20:55)
[2024-03-29] MEDS ORDERED: POTASSIUM CHLORIDE 20 MEQ TAB PO ONE (22:05)
[2024-03-29 23:30] VITALS: BP 123/52
[2024-03-30] MEDS ORDERED: ACETAMINOPHEN 325 MG TAB PO PRN (02:40)
[2024-03-30] MEDS ORDERED: BISACODYL 10 MG SUPP R PRN (02:40)
[2024-03-30] MEDS ORDERED: Ondansetron Hydrochloride 4 MG/2 ML VIAL IV PRN (02:40)
[2024-03-30] MEDS ORDERED: ACETAMINOPHEN 650 MG SUPP R PRN (02:40)
[2024-03-30] MEDS ORDERED: Magnesium Hydroxide 30 ML UDC PO PRN (02:40)
[2024-03-30] MEDS ORDERED: BISACODYL 5 MG TAB PO PRN (02:40)
[2024-03-30] MEDS ORDERED: Albuterol Sulf/Ipratropium 3 ML VIAL NEB SCH (02:55)
[2024-03-30 04:06] VITALS: BP 122/52
[2024-03-30] MEDS ORDERED: methylPREDNISolone sod succ 40 MG VIAL IV SCH (06:00)
[2024-03-30] MEDS ORDERED: Ceftriaxone Sodium 1 GM in SYRINGE INFUSION 10 ML IV SCH (06:00)
[2024-03-30 06:16] LABS: HEMATOCRIT 28.8 % (37.0-47.0); MEAN CELL VOLUME 92.9 fl (81.0-99.0); MEAN CORPUSCULAR HGB 27.7 pg (27.0-31.0); MEAN CORPUSCULAR HGB CONC 29.9 g/dl (33.0-37.0); MEAN PLATELET VOLUME 8.7 fl (9.6-12.3); PLATELET COUNT AUTOMATED 334 10*3/uL (130-400); RED CELL DISTRI WIDTH 13.9 % (0-14.5); WHITE BLOOD COUNT 6.3 10*3/uL (4.8-10.8)
[2024-03-30 06:29] VITALS: BP 131/62
[2024-03-30 06:38] LABS: MANUAL DIFF REFLEX YES
[2024-03-30 06:59] LABS: ALKALINE PHOSPHATASE 88 U/L (46-116); BUN 20 mg/dl (9-23); CHLORIDE 83 mmol/L (98-107); POTASSIUM 3.4 mmol/L (3.4-5.1); SGPT/ALT 17 U/L (5-49)
[2024-03-30 08:03] LABS: TOTAL CELLS COUNTED 100 #CELLS
[2024-03-30 08:04] LABS: PLATELET SUFFICIENCY NORMAL (NORMAL)
[2024-03-30] MEDS ORDERED: acetaZOLAMIDE 250 MG TAB PO SCH (10:00)
[2024-03-30] MEDS ORDERED: Enoxaparin Sodium 40 MG/0.4 ML SYR SC SCH (10:00)
[2024-03-30] MEDS ORDERED: AZITHROMYCIN 250 ML IV SCH (10:00)
[2024-03-30] MEDS ORDERED: GUAIFENESIN 600 MG TAB ER PO SCH (10:00)
[2024-03-30 11:06] LABS: ABG BASE EXCESS 19.8 mmol/L (-2.0-2.0); ARTERIAL BLOOD GAS PH 7.461 (7.35-7.45)
[2024-03-30 11:30] VITALS: BP 131/56
[2024-03-30 15:33] VITALS: BP 151/80
[2024-03-30] MEDS ORDERED: hydrOXYzine hydrochloride 50 MG/ML VIAL IM ONE (18:45)
[2024-03-30 19:02] LABS: ABG BASE EXCESS 23.5 mmol/L (-2.0-2.0); ARTERIAL BLOOD GAS PH 7.497 (7.35-7.45)
[2024-03-30 20:00] VITALS: BP 125/61
[2024-03-30] MEDS ORDERED: hydrOXYzine pamoate 25 MG CAP PO ONE (20:25)
[2024-03-30] MEDS ORDERED: diphenhydrAMINE hydrochloride 50 MG/ML VIAL IV PRN (20:25)
[2024-03-31] VITALS: BP 115/48
[2024-03-31 06:20] LABS: HEMATOCRIT 27.2 % (37.0-47.0); MEAN CORPUSCULAR HGB 27.1 pg (27.0-31.0); MEAN CORPUSCULAR HGB CONC 30.5 g/dl (33.0-37.0); PLATELET COUNT AUTOMATED 397 10*3/uL (130-400); RED BLOOD COUNT 3.06 10*6/uL (4.10-5.10); WHITE BLOOD COUNT 10.7 10*3/uL (4.8-10.8)
[2024-03-31 06:28] LABS: MANUAL DIFF REFLEX YES
[2024-03-31 06:58] LABS: MEAN CELL VOLUME 88.9 fl (81.0-99.0)
[2024-03-31 07:00] LABS: BUN 25 mg/dl (9-23); CHLORIDE 84 mmol/L (98-107); POTASSIUM 2.7 mmol/L (3.4-5.1)
[2024-03-31 07:10] LABS: PLATELET SUFFICIENCY NORMAL (NORMAL); TOTAL CELLS COUNTED 100 #CELLS
[2024-03-31 08:00] VITALS: BP 118/66
[2024-03-31] MEDS ORDERED: POTASSIUM CHLORIDE IN WATER 100 ML IV SCH (08:00)
[2024-03-31] MEDS ORDERED: ATORVASTATIN CALCIUM 40 MG TABLET PO SCH (10:00)
[2024-03-31] MEDS ORDERED: Nicotine 21 MG PATCH T SCH (10:00)
[2024-03-31 12:00] VITALS: BP 117/59
[2024-03-31] MEDS ORDERED: POTASSIUM CHLORIDE 20 MEQ TAB PO ONE ×2 (13:00→17:50)
[2024-03-31 16:00] VITALS: BP 107/60
[2024-03-31 17:07] LABS: BUN 23 mg/dl (9-23); CHLORIDE 89 mmol/L (98-107)
[2024-03-31 20:00] VITALS: BP 113/51
[2024-04-01] VITALS: BP 121/54
[2024-04-01 06:16] LABS: BUN 23 mg/dl (9-23); CHLORIDE 92 mmol/L (98-107); POTASSIUM 3.1 mmol/L (3.4-5.1)
[2024-04-01 06:20] LABS: BASO % 0.1 % (0.0-1.0); EOS % 0.4 % (1.0-4.0); HEMATOCRIT 27.2 % (37.0-47.0); LYMPH # 2.1 10*3/uL (1.3-4.4); MEAN CORPUSCULAR HGB 27.1 pg (27.0-31.0); MEAN CORPUSCULAR HGB CONC 29.4 g/dl (33.0-37.0); MONO # 1.2 10*3/uL (0.1-1.0); MONO % 10.5 % (3.0-9.0); NEUT # 7.6 10*3/uL (2.3-7.9); NEUT % 69.3 % (47.0-73.0); PLATELET COUNT AUTOMATED 426 10*3/uL (130-400); RED BLOOD COUNT 2.95 10*6/uL (4.10-5.10); RED CELL DISTRI WIDTH 14.3 % (0-14.5)
[2024-04-01 07:02] LABS: MEAN CELL VOLUME 92.2 fl (81.0-99.0)
[2024-04-01 08:00] VITALS: BP 102/60
[2024-04-01] MEDS ORDERED: POTASSIUM CHLORIDE 20 MEQ TAB PO ONE (09:15)
[2024-04-01] MEDS ORDERED: POTASSIUM CHLO20 ME4 PO (10:17)
== END 2024-04-01 11:12 | disposition home or self-care (01) | DRG 133 ==
LOC: ED 19:51 → 4E 03-30 02:27 → EDHOLD 03-30 02:27 → 4E 03-30 09:09
PROVIDERS: Internal Medicine; Student in an Organized Health Care Education/Training Program; ADMIT Internal Medicine; ATTEND Internal Medicine
PROC: 5A09357 Assistance with Respiratory Ventilation, Less than 24 Consecutive Hours, Continuous Positive Airway Pressure (ICD-10-PCS; principal; 2024-03-30)
PROC: 5A09357 Assistance with Respiratory Ventilation, Less than 24 Consecutive Hours, Continuous Positive Airway Pressure (ICD-10-PCS; 2024-03-31)
DX: J96.21 Acute and chronic respiratory failure with hypoxia (principal); E43 Unspecified severe protein-calorie malnutrition; G93.41 Metabolic encephalopathy; E87.3 Alkalosis; J44.1 Chronic obstructive pulmonary disease with (acute) exacerbation; J44.0 Chronic obstructive pulmonary disease with (acute) lower respiratory infection; R65.10 Systemic inflammatory response syndrome (SIRS) of non-infectious origin without acute organ dysfunction; J96.22 Acute and chronic respiratory failure with hypercapnia; D72.829 Elevated white blood cell count, unspecified; Z68.1 Body mass index [BMI] 19.9 or less, adult; D50.9 Iron deficiency anemia, unspecified; J20.9 Acute bronchitis, unspecified; I50.32 Chronic diastolic (congestive) heart failure; F41.1 Generalized anxiety disorder; M81.0 Age-related osteoporosis without current pathological fracture; R73.9 Hyperglycemia, unspecified; E78.5 Hyperlipidemia, unspecified; J98.4 Other disorders of lung; E87.6 Hypokalemia; E55.9 Vitamin D deficiency, unspecified; Z79.899 Other long term (current) drug therapy; Z79.01 Long term (current) use of anticoagulants; Z79.2 Long term (current) use of antibiotics; Z88.1 Allergy status to other antibiotic agents; Z88.0 Allergy status to penicillin; Z88.8 Allergy status to other drugs, medicaments and biological substances; Z91.09 Other allergy status, other than to drugs and biological substances; Z98.891 History of uterine scar from previous surgery; Z91.199 Patient's noncompliance with other medical treatment and regimen due to unspecified reason; Z90.49 Acquired absence of other specified parts of digestive tract; Z80.8 Family history of malignant neoplasm of other organs or systems; Z83.3 Family history of diabetes mellitus; Z87.891 Personal history of nicotine dependence; Z79.51 Long term (current) use of inhaled steroids

== ENCOUNTER → 2024-04-06 | Outpatient (CLI) | payer OTHER ==
[2024-04-06 14:42] LABS: BASO % 0.1 % (0.0-1.0); EOS # 0.1 10*3/uL (0.0-0.4); EOS % 0.4 % (1.0-4.0); HEMATOCRIT 29.3 % (37.0-47.0); LYMPH # 1.5 10*3/uL (1.3-4.4); LYMPH % 8.9 % (27.0-41.0); MEAN CELL VOLUME 91.3 fl (81.0-99.0); MEAN CORPUSCULAR HGB 27.4 pg (27.0-31.0); MEAN PLATELET VOLUME 8.6 fl (9.6-12.3); MONO # 1.4 10*3/uL (0.1-1.0); MONO % 8.4 % (3.0-9.0); NEUT # 13.6 10*3/uL (2.3-7.9); NEUT % 81.7 % (47.0-73.0); NUCLEATED RED BLOOD CELL 0.1 % (0.0-0.0); PLATELET COUNT AUTOMATED 446 10*3/uL (130-400); RED BLOOD COUNT 3.21 10*6/uL (4.10-5.10); RED CELL DISTRI WIDTH 14.3 % (0-14.5); WHITE BLOOD COUNT 16.7 10*3/uL (4.8-10.8)
[2024-04-06 15:06] LABS: ALKALINE PHOSPHATASE 92 U/L (46-116); BUN 26 mg/dl (9-23); CHLORIDE 92 mmol/L (98-107); SGPT/ALT 18 U/L (5-49); TOTAL PROTEIN 6.1 gm/dL (6.0-8.0)
== END | disposition home or self-care (01) ==
LOC: LAB 14:27
PROVIDERS: ATTEND Internal Medicine
DX: J44.1 Chronic obstructive pulmonary disease with (acute) exacerbation (principal); E87.6 Hypokalemia; G93.41 Metabolic encephalopathy

== ENCOUNTER 2024-04-19 16:47 | Inpatient (IN) | payer OTHER ==
[~2024-04-19] VITALS: Ht 157.4 cm; Wt 35.1 kg
[2024-04-19 16:59] VITALS: BP 93/65
[2024-04-19] MEDS ORDERED: methylPREDNISolone sod succ 125 MG VIAL IV ONE (17:20)
[2024-04-19 17:32] LABS: BASO % 0.3 % (0.0-1.0); EOS # 0.1 10*3/uL (0.0-0.4); EOS % 0.6 % (1.0-4.0); LYMPH # 1.1 10*3/uL (1.3-4.4); LYMPH % 7.2 % (27.0-41.0); MEAN CELL VOLUME 95.1 fl (81.0-99.0); MEAN CORPUSCULAR HGB 26.7 pg (27.0-31.0); MEAN CORPUSCULAR HGB CONC 28.1 g/dl (33.0-37.0); MEAN PLATELET VOLUME 9.1 fl (9.6-12.3); MONO # 1.2 10*3/uL (0.1-1.0); MONO % 7.8 % (3.0-9.0); NEUT % 83.8 % (47.0-73.0); PLATELET COUNT AUTOMATED 369 10*3/uL (130-400); RED BLOOD COUNT 3.26 10*6/uL (4.10-5.10); RED CELL DISTRI WIDTH 14.3 % (0-14.5); WHITE BLOOD COUNT 15.5 10*3/uL (4.8-10.8)
[2024-04-19] MEDS ORDERED: Albuterol Sulf/Ipratropium 3 ML VIAL NEB ONE (17:35)
[2024-04-19 17:42] LABS: ABG BASE EXCESS 18.9 mmol/L (-2.0-2.0); ARTERIAL BLOOD GAS PH 7.442 (7.35-7.45)
[2024-04-19 17:58] LABS: ALKALINE PHOSPHATASE 113 U/L (46-116); BUN 16 mg/dl (9-23); CHLORIDE 90 mmol/L (98-107); POTASSIUM 3.3 mmol/L (3.4-5.1); SGPT/ALT 24 U/L (5-49)
[2024-04-19] MEDS ORDERED: POTASSIUM CHLORIDE 20 MEQ TAB PO ONE (18:20)
[2024-04-19 19:47] VITALS: BP 118/51
[2024-04-19] MEDS ORDERED: ACETAMINOPHEN 650 MG SUPP R PRN (19:55)
[2024-04-19] MEDS ORDERED: TEMAZEPAM 15 MG CAP PO PRN (19:55)
[2024-04-19] MEDS ORDERED: Magnesium Hydroxide 30 ML UDC PO PRN (19:55)
[2024-04-19] MEDS ORDERED: ACETAMINOPHEN 325 MG TAB PO PRN (19:55)
[2024-04-19] MEDS ORDERED: BISACODYL 10 MG SUPP R PRN (19:55)
[2024-04-19] MEDS ORDERED: BISACODYL 5 MG TAB PO PRN (19:55)
[2024-04-19] MEDS ORDERED: Albuterol Sulf/Ipratropium 3 ML VIAL NEB SCH (20:00)
[2024-04-19] MEDS ORDERED: LORazepam 1 MG TAB PO PRN (20:10)
[2024-04-19] MEDS ORDERED: methylPREDNISolone sod succ 40 MG VIAL IV SCH (22:00)
[2024-04-19] MEDS ORDERED: LEVOFLOXACIN 100 ML IV SCH (22:00)
[2024-04-19 22:52] VITALS: BP 104/56
[2024-04-20 02:04] VITALS: BP 107/77
[2024-04-20 06:18] VITALS: BP 107/54
[2024-04-20 07:03] LABS: BASO % 0.1 % (0.0-1.0); LYMPH # 0.5 10*3/uL (1.3-4.4); LYMPH % 5.9 % (27.0-41.0); MEAN CELL VOLUME 94.2 fl (81.0-99.0); MEAN CORPUSCULAR HGB 26.9 pg (27.0-31.0); MEAN CORPUSCULAR HGB CONC 28.6 g/dl (33.0-37.0); MEAN PLATELET VOLUME 9.2 fl (9.6-12.3); MONO # 0.3 10*3/uL (0.1-1.0); MONO % 3.7 % (3.0-9.0); NEUT # 6.9 10*3/uL (2.3-7.9); NEUT % 89.9 % (47.0-73.0); PLATELET COUNT AUTOMATED 348 10*3/uL (130-400); RED BLOOD COUNT 3.08 10*6/uL (4.10-5.10); RED CELL DISTRI WIDTH 14.4 % (0-14.5); WHITE BLOOD COUNT 7.6 10*3/uL (4.8-10.8)
[2024-04-20 07:33] LABS: ALKALINE PHOSPHATASE 101 U/L (46-116); BUN 19 mg/dl (9-23); CHLORIDE 92 mmol/L (98-107); SGPT/ALT 22 U/L (5-49); TOTAL PROTEIN 5.8 gm/dL (6.0-8.0)
[2024-04-20 07:36] LABS: POTASSIUM 4.7 mmol/L (3.4-5.1)
[2024-04-20 08:00] VITALS: BP 110/55
[2024-04-20] MEDS ORDERED: FUROSEMIDE 20 MG TAB PO SCH (10:00)
[2024-04-20] MEDS ORDERED: ATORVASTATIN CALCIUM 40 MG TABLET PO SCH (10:00)
[2024-04-20] MEDS ORDERED: Cholecalciferol 5,000 IU CAP (125 MCG) PO SCH (10:00)
[2024-04-20] MEDS ORDERED: acetaZOLAMIDE 250 MG TAB PO SCH (10:00)
[2024-04-20] MEDS ORDERED: GUAIFENESIN 600 MG TAB ER PO SCH (10:00)
[2024-04-20] MEDS ORDERED: Enoxaparin Sodium 40 MG/0.4 ML SYR SC SCH (10:00)
[2024-04-20] MEDS ORDERED: POTASSIUM CHLORIDE 20 MEQ TAB PO SCH (10:00)
[2024-04-20 21:40] VITALS: BP 142/47
[2024-04-21 03:31] VITALS: BP 105/47
[2024-04-21 05:53] VITALS: BP 105/45
[2024-04-21 06:56] LABS: HEMATOCRIT 26.8 % (37.0-47.0); MEAN CELL VOLUME 92.7 fl (81.0-99.0); MEAN CORPUSCULAR HGB 26.6 pg (27.0-31.0); MEAN CORPUSCULAR HGB CONC 28.7 g/dl (33.0-37.0); MEAN PLATELET VOLUME 9.4 fl (9.6-12.3); PLATELET COUNT AUTOMATED 347 10*3/uL (130-400); RED BLOOD COUNT 2.89 10*6/uL (4.10-5.10); RED CELL DISTRI WIDTH 14.5 % (0-14.5); WHITE BLOOD COUNT 11.1 10*3/uL (4.8-10.8)
[2024-04-21 07:10] LABS: MANUAL DIFF REFLEX YES
[2024-04-21 07:45] LABS: PLATELET SUFFICIENCY NORMAL (NORMAL); STOMATOCYTE FEW; TOTAL CELLS COUNTED 100 #CELLS
[2024-04-21 07:46] LABS: MICROCYTOSIS SLIGHT
[2024-04-21 08:01] LABS: BUN 23 mg/dl (9-23); CHLORIDE 95 mmol/L (98-107); POTASSIUM 3.9 mmol/L (3.4-5.1)
== END 2024-04-21 13:30 | disposition home or self-care (01) | DRG 720 ==
LOC: ED 16:47 → EDHOLD 18:29
PROVIDERS: Internal Medicine; Nurse Practitioner Family; Student in an Organized Health Care Education/Training Program; ADMIT Internal Medicine; ATTEND Internal Medicine
PROC: 5A09357 Assistance with Respiratory Ventilation, Less than 24 Consecutive Hours, Continuous Positive Airway Pressure (ICD-10-PCS; principal; 2024-04-21)
DX: A41.9 Sepsis, unspecified organism (principal); E43 Unspecified severe protein-calorie malnutrition; J96.12 Chronic respiratory failure with hypercapnia; J15.9 Unspecified bacterial pneumonia; J44.1 Chronic obstructive pulmonary disease with (acute) exacerbation; E87.3 Alkalosis; J96.11 Chronic respiratory failure with hypoxia; J43.9 Emphysema, unspecified; R91.1 Solitary pulmonary nodule; E87.6 Hypokalemia; R91.8 Other nonspecific abnormal finding of lung field; F17.210 Nicotine dependence, cigarettes, uncomplicated; F41.1 Generalized anxiety disorder; D50.9 Iron deficiency anemia, unspecified; I50.32 Chronic diastolic (congestive) heart failure; Z91.199 Patient's noncompliance with other medical treatment and regimen due to unspecified reason; Z71.6 Tobacco abuse counseling; Z90.49 Acquired absence of other specified parts of digestive tract; Z98.891 History of uterine scar from previous surgery; Z88.1 Allergy status to other antibiotic agents; Z79.51 Long term (current) use of inhaled steroids; Z79.899 Other long term (current) drug therapy; Z68.1 Body mass index [BMI] 19.9 or less, adult

== ENCOUNTER 2024-05-24 22:26 | Inpatient (IN) | payer OTHER ==
[~2024-05-24] VITALS: Ht 157.4 cm; Wt 40.1 kg
[~2024-05-24 22:26] MED LIST changes: +ASPIRIN ADULT L81 M2 PO; +METOPROLOL SUCC25 M2 PO
[2024-05-24 22:31] VITALS: BP 99/38
[2024-05-24 23:50] LABS: HEMATOCRIT 37.2 % (37.0-47.0); MANUAL DIFF REFLEX YES; MEAN CELL VOLUME 94.4 fl (81.0-99.0); MEAN CORPUSCULAR HGB 26.9 pg (27.0-31.0); MEAN CORPUSCULAR HGB CONC 28.5 g/dl (33.0-37.0); MEAN PLATELET VOLUME 9.5 fl (9.6-12.3); PLATELET COUNT AUTOMATED 276 10*3/uL (130-400); RED BLOOD COUNT 3.94 10*6/uL (4.10-5.10); RED CELL DISTRI WIDTH 15.4 % (0-14.5); WHITE BLOOD COUNT 10.8 10*3/uL (4.8-10.8)
[2024-05-25] VITALS (9 sets, daily range): BP systolic 88–118; BP diastolic 35–54
[2024-05-25 00:09] LABS: BUN 32 mg/dl (9-23); CHLORIDE 91 mmol/L (98-107); POTASSIUM 3.6 mmol/L (3.4-5.1)
[2024-05-25 00:14] LABS: BASOPHILS 1 % (0-1); PLATELET SUFFICIENCY NORMAL (NORMAL); TOTAL CELLS COUNTED 100 #CELLS
[2024-05-25 00:15] LABS: STOMATOCYTE FEW
[2024-05-25] MEDS ORDERED: Albuterol Sulf/Ipratropium 3 ML VIAL NEB ONE (01:55)
[2024-05-25 03:03] LABS: BILIRUBIN Negative (Negative); BLOOD Negative (Negative); CLARITY Turbid (Clear); COLOR Yellow (Yellow); GLUCOSE Negative (Negative); KETONE Negative (Negative); LEUKO ESTERASE Trace (Negative); NITRITE Negative (Negative); SPECIFIC GRAVITY 1.015 (1.001-1.030); UROBILINOGEN 0.2 E.U./dl (0.0-1.0)
[2024-05-25] MEDS ORDERED: Ceftriaxone Sodium 1 GM/10 ML SYR IV ONE (03:10)
[2024-05-25] MEDS ORDERED: methylPREDNISolone sod succ 125 MG VIAL IV ONE (03:10)
[2024-05-25 03:11] LABS: BACTERIA 1+
[2024-05-25] MEDS ORDERED: AZITHROMYCIN 250 ML IV ONE (03:15)
[2024-05-25] MEDS ORDERED: ACETAMINOPHEN 325 MG TAB PO PRN (03:50)
[2024-05-25] MEDS ORDERED: Acetaminophen/Hydrocodone 5 MG/325 MG TABLET PO PRN (03:50)
[2024-05-25] MEDS ORDERED: Magnesium Hydroxide 30 ML UDC PO PRN (03:50)
[2024-05-25] MEDS ORDERED: MORPHINE Sulfate 2 MG/ML SYR IV PRN (03:50)
[2024-05-25] MEDS ORDERED: TEMAZEPAM 15 MG CAP PO PRN (03:50)
[2024-05-25] MEDS ORDERED: BISACODYL 10 MG SUPP R PRN (03:50)
[2024-05-25] MEDS ORDERED: BISACODYL 5 MG TAB PO PRN (03:50)
[2024-05-25] MEDS ORDERED: Pantoprazole Sodium 40 MG TAB PO PRN (03:55)
[2024-05-25] MEDS ORDERED: Albuterol Sulf/Ipratropium 3 ML VIAL NEB SCH (03:55)
[2024-05-25] MEDS ORDERED: SODIUM CHLORIDE 0.9% 1,000 ML IV ONE (06:20)
[2024-05-25 06:41] LABS: EOS % 0.1 % (1.0-4.0); HEMATOCRIT 33.2 % (37.0-47.0); LYMPH # 0.5 10*3/uL (1.3-4.4); MEAN CELL VOLUME 93.8 fl (81.0-99.0); MEAN CORPUSCULAR HGB 26.8 pg (27.0-31.0); MEAN CORPUSCULAR HGB CONC 28.6 g/dl (33.0-37.0); MEAN PLATELET VOLUME 9.6 fl (9.6-12.3); MONO # 0.4 10*3/uL (0.1-1.0); MONO % 4.7 % (3.0-9.0); NEUT # 7.6 10*3/uL (2.3-7.9); NEUT % 88.7 % (47.0-73.0); PLATELET COUNT AUTOMATED 267 10*3/uL (130-400); RED BLOOD COUNT 3.54 10*6/uL (4.10-5.10); RED CELL DISTRI WIDTH 15.4 % (0-14.5); WHITE BLOOD COUNT 8.6 10*3/uL (4.8-10.8)
[2024-05-25 07:08] LABS: BUN 29 mg/dl (9-23); CHLORIDE 93 mmol/L (98-107); POTASSIUM 3.2 mmol/L (3.4-5.1)
[2024-05-25] MEDS ORDERED: POTASSIUM CHLORIDE 20 MEQ TAB PO ONE (07:30)
[2024-05-25 07:47] LABS: ABG O2 SATURATION 96.9 % (94.0-98.0); ARTERIAL BLOOD GAS PH 7.399 (7.350-7.450); ARTERIAL BLOOD GAS PO2 86.9 mmHg (83.0-108.0)
[2024-05-25 07:50] LABS: ABG BASE EXCESS 17.8 mmol/L (-2.0-3.0)
[2024-05-25] MEDS ORDERED: BREZTRI AEROS10.7 GM INH (09:13)
[2024-05-25] MEDS ORDERED: ACETAZOLAMIDE250 MG PO (09:13)
[2024-05-25] MEDS ORDERED: methylPREDNISolone sod succ 40 MG VIAL IV SCH (10:00)
[2024-05-25] MEDS ORDERED: Enoxaparin Sodium 40 MG/0.4 ML SYR SC SCH (10:00)
[2024-05-25] MEDS ORDERED: GUAIFENESIN 600 MG TAB ER PO SCH (10:00)
[2024-05-25] MEDS ORDERED: SODIUM CHLORIDE 0.9% 500 ML IV ONE ×2 (14:00)
[2024-05-25] MEDS ORDERED: HEEL PROTECTOR DEVICE ONE ×2 (16:17→16:27)
[2024-05-25] MEDS ORDERED: CHAIR CUSHION DEVICE ONE (16:17)
[2024-05-25] MEDS ORDERED: FOAM BANDAGE 5X5 T ONE (16:48)
[2024-05-25] MEDS ORDERED: FOAM BANDAGE 1 EACH BANDAGE T ONE (16:48)
[2024-05-25] MEDS ORDERED: Protector, Heel/Elbow (PAIR) DEVICE ONE (16:49)
[2024-05-26] VITALS: BP 122/59
[2024-05-26 06:21] LABS: MEAN CELL VOLUME 92.7 fl (81.0-99.0); MEAN CORPUSCULAR HGB 26.8 pg (27.0-31.0); MEAN PLATELET VOLUME 9.8 fl (9.6-12.3); PLATELET COUNT AUTOMATED 257 10*3/uL (130-400); RED BLOOD COUNT 3.13 10*6/uL (4.10-5.10); RED CELL DISTRI WIDTH 15.7 % (0-14.5); WHITE BLOOD COUNT 14.4 10*3/uL (4.8-10.8)
[2024-05-26 06:22] LABS: MANUAL DIFF REFLEX YES
[2024-05-26 06:49] LABS: BUN 26 mg/dl (9-23); CHLORIDE 98 mmol/L (98-107); POTASSIUM 4.1 mmol/L (3.4-5.1)
[2024-05-26 07:23] LABS: OVALOCYTES FEW; PLATELET SUFFICIENCY NORMAL (NORMAL); POLYCHROMASIA SLIGHT; ROULEAUX SLIGHT; TOTAL CELLS COUNTED 100 #CELLS
[2024-05-26 08:00] VITALS: BP 122/64
[2024-05-26] MEDS ORDERED: FOAM BANDAGE 5X5 T ONE (09:27)
[2024-05-26] MEDS ORDERED: PREDNISONE10 MG PO (09:40)
[2024-05-26] MEDS ORDERED: VIBRAMYCIN HYC100 MG PO (09:40)
[2024-05-26] MEDS ORDERED: AZITHROMYCIN 250 ML IV SCH (10:00)
[2024-05-26] MEDS ORDERED: Ceftriaxone Sodium 1 GM in SYRINGE INFUSION 10 ML IV SCH (10:00)
== END 2024-05-26 12:40 | disposition home or self-care (01) | DRG 133 ==
LOC: ED 22:26 → 4E 05-25 03:37 → EDHOLD 05-25 03:37 → 4E 05-25 21:36
PROVIDERS: Emergency Medicine; Student in an Organized Health Care Education/Training Program; ADMIT Internal Medicine; ATTEND Internal Medicine
DX: J96.02 Acute respiratory failure with hypercapnia (principal); E44.0 Moderate protein-calorie malnutrition; J44.1 Chronic obstructive pulmonary disease with (acute) exacerbation; J12.9 Viral pneumonia, unspecified; J96.01 Acute respiratory failure with hypoxia; Z99.81 Dependence on supplemental oxygen; I50.32 Chronic diastolic (congestive) heart failure; E87.6 Hypokalemia; D64.9 Anemia, unspecified; D72.9 Disorder of white blood cells, unspecified; E87.8 Other disorders of electrolyte and fluid balance, not elsewhere classified; R73.9 Hyperglycemia, unspecified; Z68.1 Body mass index [BMI] 19.9 or less, adult; R82.71 Bacteriuria; E78.2 Mixed hyperlipidemia; E55.9 Vitamin D deficiency, unspecified; F41.1 Generalized anxiety disorder; M81.8 Other osteoporosis without current pathological fracture; F17.210 Nicotine dependence, cigarettes, uncomplicated; E86.1 Hypovolemia; Z90.49 Acquired absence of other specified parts of digestive tract; Z71.6 Tobacco abuse counseling; Z80.0 Family history of malignant neoplasm of digestive organs; Z88.1 Allergy status to other antibiotic agents; Z79.82 Long term (current) use of aspirin; Z79.899 Other long term (current) drug therapy

== ENCOUNTER 2024-06-29 18:04 | Emergency (ER) | payer OTHER ==
[~2024-06-29] VITALS: Ht 154.9 cm; Wt 35.4 kg
[~2024-06-29 18:04] MED LIST changes: +BREZTRI AEROS10.7 GM INH; +VIBRAMYCIN HYC100 MG PO
[2024-06-29 18:56] VITALS: BP 111/44
[2024-06-29] MEDS ORDERED: ACETAMINOPHEN 325 MG TAB PO ONE (19:10)
== END 2024-06-29 20:30 | disposition home or self-care (01) ==
LOC: ED 18:04
DX: S62.627A Displaced fracture of middle phalanx of left little finger, initial encounter for closed fracture (principal); S62.617A Displaced fracture of proximal phalanx of left little finger, initial encounter for closed fracture; I50.9 Heart failure, unspecified; J43.9 Emphysema, unspecified; F17.200 Nicotine dependence, unspecified, uncomplicated; Z88.1 Allergy status to other antibiotic agents; Z90.49 Acquired absence of other specified parts of digestive tract; Z98.890 Other specified postprocedural states; W19.XXXA Unspecified fall, initial encounter; Y93.01 Activity, walking, marching and hiking; Y92.008 Other place in unspecified non-institutional (private) residence as the place of occurrence of the external cause; Y99.8 Other external cause status

== ENCOUNTER 2024-08-07 14:22 | Inpatient (IN) | payer MEDICAID ==
[2024-08-07] VITALS (7 sets, daily range): BP systolic 100–111; BP diastolic 28–50
[~2024-08-07] VITALS: Ht 157.4 cm; Wt 40.6 kg
[2024-08-07] MEDS ORDERED: Albuterol Sulf/Ipratropium 3 ML VIAL NEB ONE (14:35)
[2024-08-07] MEDS ORDERED: methylPREDNISolone sod succ 125 MG VIAL IV ONE (14:35)
[2024-08-07 14:54] LABS: HEMATOCRIT 31.6 % (37.0-47.0); MEAN CELL VOLUME 100.6 fl (81.0-99.0); MEAN CORPUSCULAR HGB 27.4 pg (27.0-31.0); MEAN CORPUSCULAR HGB CONC 27.2 g/dl (33.0-37.0); MEAN PLATELET VOLUME 8.9 fl (9.6-12.3); NUCLEATED RED BLOOD CELL 0.1 % (0.0-0.0); PLATELET COUNT AUTOMATED 323 10*3/uL (130-400); RED BLOOD COUNT 3.14 10*6/uL (4.10-5.10); RED CELL DISTRI WIDTH 15.2 % (0-14.5); WHITE BLOOD COUNT 22.8 10*3/uL (4.8-10.8)
[2024-08-07 14:55] LABS: VENOUS BLOOD GAS O2 SAT 82.1 % (60.0-85.0)
[2024-08-07 15:00] LABS: MANUAL DIFF REFLEX YES
[2024-08-07 15:11] LABS: ALKALINE PHOSPHATASE 172 U/L (46-116); BUN 26 mg/dl (9-23); CHLORIDE 93 mmol/L (98-107); POTASSIUM 4.1 mmol/L (3.4-5.1); SGPT/ALT 12 U/L (5-49); TOTAL PROTEIN 5.9 gm/dL (6.0-8.0)
[2024-08-07 15:14] LABS: PLATELET SUFFICIENCY NORMAL (NORMAL); TOTAL CELLS COUNTED 100 #CELLS
[2024-08-07] MEDS ORDERED: AZITHROMYCIN 250 ML IV ONE (15:20)
[2024-08-07] MEDS ORDERED: Ceftriaxone Sodium 1 GM/10 ML SYR IV ONE (15:20)
[2024-08-07] MEDS ORDERED: Vancomycin Hydrochloride 250 ML IV ONE (15:25)
[2024-08-07 16:03] LABS: ARTERIAL BLOOD GAS PH 7.32 (7.350-7.450); ARTERIAL BLOOD GAS PO2 70.3 mmHg (83.0-108.0)
[2024-08-07 16:05] LABS: ABG BASE EXCESS 7.9 mmol/L (-2.0-3.0)
[2024-08-07] MEDS ORDERED: BISACODYL 5 MG TAB PO PRN (16:25)
[2024-08-07] MEDS ORDERED: ACETAMINOPHEN 325 MG TAB PO PRN (16:25)
[2024-08-07] MEDS ORDERED: Acetaminophen/Hydrocodone 5 MG/325 MG TABLET PO PRN (16:25)
[2024-08-07] MEDS ORDERED: Ondansetron Hydrochloride 4 MG/2 ML VIAL IV PRN (16:25)
[2024-08-07] MEDS ORDERED: Albuterol Sulf/Ipratropium 3 ML VIAL NEB SCH (16:45)
[2024-08-07] MEDS ORDERED: SODIUM CHLORIDE 0.9% 1,000 ML IV SCH (16:45)
[2024-08-07] MEDS ORDERED: K-TAB20 MEQ PO (21:40)
[2024-08-07] MEDS ORDERED: GUAIFENESIN 600 MG TAB ER PO SCH (22:00)
[2024-08-07] MEDS ORDERED: CEFEPIME HCL IN DEXTROSE 5 % 50 ML IV SCH (22:00)
[2024-08-07] MEDS ORDERED: Menthol/Zinc Oxide 4 GM THIN T SCH (22:25)
[2024-08-07] MEDS ORDERED: FOAM BANDAGE 1 EACH BANDAGE T ONE (23:43)
[2024-08-07] MEDS ORDERED: FOAM BANDAGE 5X5 T ONE (23:43)
[2024-08-08 05:11] LABS: ALKALINE PHOSPHATASE 141 U/L (46-116); BUN 20 mg/dl (9-23); CHLORIDE 94 mmol/L (98-107); POTASSIUM 3.4 mmol/L (3.4-5.1); SGPT/ALT 10 U/L (5-49); TOTAL PROTEIN 5.2 gm/dL (6.0-8.0)
[2024-08-08] MEDS ORDERED: methylPREDNISolone sod succ 125 MG VIAL IV SCH (06:00)
[2024-08-08 06:21] LABS: HEMATOCRIT 26.4 % (37.0-47.0); MEAN CELL VOLUME 97.8 fl (81.0-99.0); MEAN CORPUSCULAR HGB 26.7 pg (27.0-31.0); MEAN CORPUSCULAR HGB CONC 27.3 g/dl (33.0-37.0); MEAN PLATELET VOLUME 9.4 fl (9.6-12.3); NUCLEATED RED BLOOD CELL 0.1 % (0.0-0.0); PLATELET COUNT AUTOMATED 302 10*3/uL (130-400); RED CELL DISTRI WIDTH 15.2 % (0-14.5); WHITE BLOOD COUNT 13.8 10*3/uL (4.8-10.8)
[2024-08-08 07:12] LABS: MANUAL DIFF REFLEX YES
[2024-08-08] MEDS ORDERED: Phosphorus/Potassium 1.45 GM PACKET PO SCH (07:30)
[2024-08-08 07:31] LABS: PLATELET SUFFICIENCY NORMAL (NORMAL); TOTAL CELLS COUNTED 100 #CELLS
[2024-08-08 08:00] VITALS: BP 160/70
[2024-08-08] MEDS ORDERED: ASPIRIN ENTERIC COATED 81 MG TAB PO SCH (10:00)
[2024-08-08] MEDS ORDERED: BUDESONIDE INH SCH (10:00)
[2024-08-08] MEDS ORDERED: GLYCOPYRROLATE INH SCH (10:00)
[2024-08-08] MEDS ORDERED: Enoxaparin Sodium 40 MG/0.4 ML SYR SC SCH (10:00)
[2024-08-08] MEDS ORDERED: METOPROLOL SUCCINATE XR 25 MG TAB PO SCH (10:00)
[2024-08-08] MEDS ORDERED: FUROSEMIDE 20 MG TAB PO SCH (10:00)
[2024-08-08] MEDS ORDERED: ATORVASTATIN CALCIUM 40 MG TABLET PO SCH (10:00)
[2024-08-08] MEDS ORDERED: acetaZOLAMIDE 250 MG TAB PO SCH (10:00)
[2024-08-08] MEDS ORDERED: FORMOTEROL INH SCH (10:00)
[2024-08-08] MEDS ORDERED: Cholecalciferol 5,000 IU CAP (125 MCG) PO SCH (10:00)
[2024-08-08 12:00] VITALS: BP 113/50
[2024-08-08] MEDS ORDERED: AZITHROMYCIN 250 ML IV SCH (15:00)
[2024-08-08] MEDS ORDERED: LEVOFLOXACIN 750 MG TAB PO SCH (17:00)
[2024-08-08] MEDS ORDERED: Vancomycin Hydrochloride 500 MG in SODIUM CHLORIDE 0.9% 100 ML IV SCH (17:00)
[2024-08-08] MEDS ORDERED: FOAM BANDAGE 1 EACH BANDAGE T ONE (18:19)
[2024-08-08 20:00] VITALS: BP 107/53
[2024-08-08] MEDS ORDERED: TEMAZEPAM 15 MG CAP PO PRN (22:00)
[2024-08-09] VITALS (9 sets, daily range): BP systolic 94–125; BP diastolic 42–83
[2024-08-09 05:28] LABS: BUN 23 mg/dl (9-23); CHLORIDE 93 mmol/L (98-107); POTASSIUM 3.2 mmol/L (3.4-5.1)
[2024-08-09 06:09] LABS: HEMATOCRIT 24.3 % (37.0-47.0); MEAN CELL VOLUME 97.2 fl (81.0-99.0); MEAN CORPUSCULAR HGB 27.2 pg (27.0-31.0); MEAN PLATELET VOLUME 9.3 fl (9.6-12.3); NUCLEATED RED BLOOD CELL 0.2 % (0.0-0.0); PLATELET COUNT AUTOMATED 307 10*3/uL (130-400); RED CELL DISTRI WIDTH 15.2 % (0-14.5)
[2024-08-09 06:36] LABS: MANUAL DIFF REFLEX YES
[2024-08-09 06:51] LABS: PLATELET SUFFICIENCY NORMAL (NORMAL); TOTAL CELLS COUNTED 100 #CELLS
[2024-08-09 06:52] LABS: POLYCHROMASIA SLIGHT; SCHISTOCYTES FEW
[2024-08-09] MEDS ORDERED: SODIUM CHLORIDE 0.9% 250 ML IV SCH (08:50)
[2024-08-09] MEDS ORDERED: SODIUM CHLORIDE 0.9% 500 ML IV ONE (09:52)
[2024-08-09] MEDS ORDERED: SUCRALFATE 1 GM TAB PO SCH (16:30)
[2024-08-09] MEDS ORDERED: Pantoprazole Sodium 40 MG VIAL IV SCH (18:00)
[2024-08-09] MEDS ORDERED: Vancomycin Hydrochloride 500 MG in SODIUM CHLORIDE 0.9% 100 ML IV SCH (18:00)
[2024-08-10] VITALS: BP 106/56
[2024-08-10 05:18] LABS: BUN 26 mg/dl (9-23); CHLORIDE 95 mmol/L (98-107); POTASSIUM 2.6 mmol/L (3.4-5.1)
[2024-08-10 06:58] LABS: HEMATOCRIT 30.4 % (37.0-47.0); MEAN CELL VOLUME 95.3 fl (81.0-99.0); MEAN CORPUSCULAR HGB 27.6 pg (27.0-31.0); MEAN CORPUSCULAR HGB CONC 28.9 g/dl (33.0-37.0); MEAN PLATELET VOLUME 9.3 fl (9.6-12.3); NUCLEATED RED BLOOD CELL 0.2 % (0.0-0.0); PLATELET COUNT AUTOMATED 335 10*3/uL (130-400); RED BLOOD COUNT 3.19 10*6/uL (4.10-5.10); RED CELL DISTRI WIDTH 16.3 % (0-14.5); WHITE BLOOD COUNT 13.2 10*3/uL (4.8-10.8)
[2024-08-10 07:10] LABS: MANUAL DIFF REFLEX YES
[2024-08-10 07:13] LABS: BURR CELLS FEW; OVALOCYTES FEW; POLYCHROMASIA SLIGHT; TOTAL CELLS COUNTED 100 #CELLS
[2024-08-10 07:14] LABS: PLATELET SUFFICIENCY NORMAL (NORMAL); ROULEAUX SLIGHT; SCHISTOCYTES FEW
[2024-08-10 08:00] VITALS: BP 100/58
[2024-08-10] MEDS ORDERED: POTASSIUM CHLORIDE 20 MEQ TAB PO ONE ×2 (08:25→12:00)
[2024-08-10] MEDS ORDERED: HYDROGEL WOUND DRESSING T ONE (11:19)
[2024-08-10] MEDS ORDERED: LEPTOSPERMUM HONEY 0.5 OZ TUBE T ONE (11:19)
[2024-08-10 12:03] VITALS: BP 102/50
[2024-08-10 16:00] VITALS: BP 121/58
[2024-08-10 20:00] VITALS: BP 115/46
[2024-08-11] VITALS: BP 125/73
[2024-08-11 06:49] LABS: ALKALINE PHOSPHATASE 118 U/L (46-116); BUN 30 mg/dl (9-23); CHLORIDE 98 mmol/L (98-107); POTASSIUM 3.4 mmol/L (3.4-5.1); SGPT/ALT 7 U/L (5-49); TOTAL PROTEIN 5.1 gm/dL (6.0-8.0)
[2024-08-11 07:55] LABS: HEMATOCRIT 30.2 % (37.0-47.0); MEAN CELL VOLUME 95.3 fl (81.0-99.0); MEAN CORPUSCULAR HGB 28.1 pg (27.0-31.0); MEAN CORPUSCULAR HGB CONC 29.5 g/dl (33.0-37.0); MEAN PLATELET VOLUME 9.1 fl (9.6-12.3); NUCLEATED RED BLOOD CELL 0.2 % (0.0-0.0); PLATELET COUNT AUTOMATED 334 10*3/uL (130-400); RED BLOOD COUNT 3.17 10*6/uL (4.10-5.10); RED CELL DISTRI WIDTH 15.8 % (0-14.5); WHITE BLOOD COUNT 13.5 10*3/uL (4.8-10.8)
[2024-08-11 08:00] VITALS: BP 122/62
[2024-08-11 08:07] LABS: MANUAL DIFF REFLEX YES
[2024-08-11 08:16] LABS: BURR CELLS FEW; OVALOCYTES FEW; PLATELET SUFFICIENCY NORMAL (NORMAL); POLYCHROMASIA SLIGHT; TOTAL CELLS COUNTED 100 #CELLS
[2024-08-11 08:17] LABS: ROULEAUX SLIGHT; SCHISTOCYTES FEW
[2024-08-11] MEDS ORDERED: VANCOMYCIN/WATER FOR INJ (PEG) 150 ML IV SCH (10:00)
[2024-08-11 12:00] VITALS: BP 136/60
[2024-08-11 16:00] VITALS: BP 116/48
[2024-08-11 20:00] VITALS: BP 97/50
[2024-08-12] VITALS: BP 119/48
[2024-08-12 06:40] LABS: HEMATOCRIT 30.3 % (37.0-47.0); MEAN CORPUSCULAR HGB 27.6 pg (27.0-31.0); MEAN PLATELET VOLUME 9.2 fl (9.6-12.3); NUCLEATED RED BLOOD CELL 0.3 % (0.0-0.0); PLATELET COUNT AUTOMATED 345 10*3/uL (130-400); RED BLOOD COUNT 3.19 10*6/uL (4.10-5.10); RED CELL DISTRI WIDTH 15.1 % (0-14.5); WHITE BLOOD COUNT 13.2 10*3/uL (4.8-10.8)
[2024-08-12 06:59] LABS: MANUAL DIFF REFLEX YES
[2024-08-12 07:33] LABS: BUN 30 mg/dl (9-23); CHLORIDE 96 mmol/L (98-107); POTASSIUM 3.6 mmol/L (3.4-5.1)
[2024-08-12 07:55] LABS: OVALOCYTES FEW; PLATELET SUFFICIENCY NORMAL (NORMAL); POLYCHROMASIA SLIGHT; TOTAL CELLS COUNTED 100 #CELLS
[2024-08-12 07:56] LABS: STOMATOCYTE FEW
[2024-08-12 08:00] VITALS: BP 110/60
[2024-08-12 12:00] VITALS: BP 112/60
[2024-08-12 16:00] VITALS: BP 117/42
[2024-08-12 20:00] VITALS: BP 111/49
[2024-08-13] VITALS: BP 100/58
[2024-08-13 06:25] LABS: HEMATOCRIT 28.8 % (37.0-47.0); MEAN CELL VOLUME 92.9 fl (81.0-99.0); MEAN CORPUSCULAR HGB 27.7 pg (27.0-31.0); MEAN CORPUSCULAR HGB CONC 29.9 g/dl (33.0-37.0); MEAN PLATELET VOLUME 8.8 fl (9.6-12.3); NUCLEATED RED BLOOD CELL 0.3 % (0.0-0.0); PLATELET COUNT AUTOMATED 332 10*3/uL (130-400); RED CELL DISTRI WIDTH 14.8 % (0-14.5); WHITE BLOOD COUNT 13.6 10*3/uL (4.8-10.8)
[2024-08-13 06:35] LABS: MANUAL DIFF REFLEX YES
[2024-08-13 06:47] LABS: BUN 30 mg/dl (9-23); CHLORIDE 97 mmol/L (98-107)
[2024-08-13 06:52] LABS: POTASSIUM 2.6 mmol/L (3.4-5.1)
[2024-08-13 07:40] LABS: TOTAL CELLS COUNTED 100 #CELLS
[2024-08-13 07:42] LABS: PLATELET SUFFICIENCY NORMAL (NORMAL)
[2024-08-13] MEDS ORDERED: POTASSIUM CHLORIDE 20 MEQ TAB PO ONE ×2 (07:45→08:30)
[2024-08-13 08:00] VITALS: BP 103/49
[2024-08-13 12:00] VITALS: BP 108/47
[2024-08-13 16:00] VITALS: BP 110/51
[2024-08-13] MEDS ORDERED: LEVOFLOXACIN 750 MG TAB PO SCH (17:00)
[2024-08-13 20:00] VITALS: BP 105/55
[2024-08-14] VITALS (10 sets, daily range): BP systolic 100–131; BP diastolic 40–67
[2024-08-14] MEDS ORDERED: LEPTOSPERMUM HONEY 4 X 5 INCH WOUND DRESSING T ONE (06:14)
[2024-08-14] MEDS ORDERED: FOAM BANDAGE 5X5 T ONE (06:14)
[2024-08-14 06:24] LABS: HEMATOCRIT 28.8 % (37.0-47.0); MEAN CELL VOLUME 94.4 fl (81.0-99.0); MEAN CORPUSCULAR HGB 27.9 pg (27.0-31.0); MEAN CORPUSCULAR HGB CONC 29.5 g/dl (33.0-37.0); MEAN PLATELET VOLUME 8.7 fl (9.6-12.3); NUCLEATED RED BLOOD CELL 0.2 % (0.0-0.0); PLATELET COUNT AUTOMATED 335 10*3/uL (130-400); RED BLOOD COUNT 3.05 10*6/uL (4.10-5.10); RED CELL DISTRI WIDTH 14.9 % (0-14.5); WHITE BLOOD COUNT 14.3 10*3/uL (4.8-10.8)
[2024-08-14 06:38] LABS: MANUAL DIFF REFLEX YES
[2024-08-14 06:53] LABS: BUN 30 mg/dl (9-23); CHLORIDE 99 mmol/L (98-107)
[2024-08-14 06:55] LABS: POTASSIUM 3.9 mmol/L (3.4-5.1)
[2024-08-14 08:21] LABS: OVALOCYTES FEW; PLATELET SUFFICIENCY NORMAL (NORMAL); POLYCHROMASIA SLIGHT; TOTAL CELLS COUNTED 100 #CELLS
[2024-08-14] MEDS ORDERED: Lidocaine Hydrochloride 4% 5 ML AMP NEB ONE (09:40)
[2024-08-14] MEDS ORDERED: Albuterol Sulfate 2.5 MG/0.5 ML VIAL NEB ONE ×2 (09:40→10:08)
[2024-08-14] MEDS ORDERED: Lidocaine Hydrochloride 4% 5 ML AMP ONE (10:08)
[2024-08-14] MEDS ORDERED: Albuterol Sulf/Ipratropium 3 ML VIAL NEB ONE ×2 (10:30→11:00)
[2024-08-14] MEDS ORDERED: PROPOFOL 200 MG/20 ML VIAL IV ONE (11:39)
[2024-08-14 15:35] LABS: BF LYMPHOCYTES 24 %; BF MACROPHAGES 61 %; BF NEUTROPHILS 6 %
[2024-08-14] MEDS ORDERED: methylPREDNISolone sod succ 40 MG VIAL IV SCH (22:00)
[2024-08-14] MEDS ORDERED: CEFEPIME HCL IN DEXTROSE 5 % 50 ML IV SCH (22:00)
[2024-08-15 00:55] VITALS: BP 100/52
[2024-08-15 08:00] VITALS: BP 94/44
[2024-08-15 12:00] VITALS: BP 115/45
[2024-08-15 14:06] LABS: ACID FAST SPEC PROCESSING Concentration (.)
[2024-08-15 16:00] VITALS: BP 144/45
[2024-08-15 20:00] VITALS: BP 113/48
[2024-08-16] VITALS: BP 113/49
[2024-08-16 08:00] VITALS: BP 123/60
[2024-08-16 12:00] VITALS: BP 129/54
[2024-08-16 16:00] VITALS: BP 137/58
[2024-08-16] MEDS ORDERED: FOAM BANDAGE 5X5 T ONE (19:12)
[2024-08-16 20:00] VITALS: BP 109/51
[2024-08-17] VITALS: BP 114/63
[2024-08-17 06:16] LABS: HEMATOCRIT 27.9 % (37.0-47.0); MEAN CELL VOLUME 93.3 fl (81.0-99.0); MEAN CORPUSCULAR HGB 27.4 pg (27.0-31.0); MEAN CORPUSCULAR HGB CONC 29.4 g/dl (33.0-37.0); MEAN PLATELET VOLUME 9.6 fl (9.6-12.3); NUCLEATED RED BLOOD CELL 0.1 % (0.0-0.0); PLATELET COUNT AUTOMATED 303 10*3/uL (130-400); RED BLOOD COUNT 2.99 10*6/uL (4.10-5.10); RED CELL DISTRI WIDTH 14.8 % (0-14.5); WHITE BLOOD COUNT 18.9 10*3/uL (4.8-10.8)
[2024-08-17 06:55] LABS: MANUAL DIFF REFLEX YES
[2024-08-17 08:00] VITALS: BP 140/77
[2024-08-17 08:19] LABS: TOTAL CELLS COUNTED 100 #CELLS
[2024-08-17 08:20] LABS: PLATELET SUFFICIENCY NORMAL (NORMAL)
[2024-08-17 12:00] VITALS: BP 126/50
[2024-08-17 16:00] VITALS: BP 120/52
[2024-08-17 20:00] VITALS: BP 117/54
[2024-08-18] VITALS: BP 108/50
[2024-08-18 08:00] VITALS: BP 118/54
[2024-08-18] MEDS ORDERED: methylPREDNISolone sod succ 40 MG VIAL IV SCH (10:00)
[2024-08-18 12:00] VITALS: BP 106/45
[2024-08-18 16:00] VITALS: BP 110/58
[2024-08-18 20:00] VITALS: BP 116/44
[2024-08-18] MEDS ORDERED: LORazepam 2 MG/ML VIAL IV ONE (20:45)
[2024-08-19] VITALS: BP 100/58
[2024-08-19 06:21] LABS: BASO % 0.1 % (0.0-1.0); EOS # 0.1 10*3/uL (0.0-0.4); EOS % 0.3 % (1.0-4.0); HEMATOCRIT 28.1 % (37.0-47.0); MEAN CELL VOLUME 94.3 fl (81.0-99.0); MEAN CORPUSCULAR HGB 27.9 pg (27.0-31.0); MEAN CORPUSCULAR HGB CONC 29.5 g/dl (33.0-37.0); MEAN PLATELET VOLUME 9.8 fl (9.6-12.3); MONO # 1.5 10*3/uL (0.1-1.0); MONO % 9.2 % (3.0-9.0); NEUT # 13.7 10*3/uL (2.3-7.9); NEUT % 85.8 % (47.0-73.0); PLATELET COUNT AUTOMATED 285 10*3/uL (130-400); RED BLOOD COUNT 2.98 10*6/uL (4.10-5.10); RED CELL DISTRI WIDTH 14.9 % (0-14.5); WHITE BLOOD COUNT 15.9 10*3/uL (4.8-10.8)
[2024-08-19 06:42] LABS: BUN 30 mg/dl (9-23); CHLORIDE 98 mmol/L (98-107); POTASSIUM 3.3 mmol/L (3.4-5.1)
[2024-08-19 08:00] VITALS: BP 112/55
[2024-08-19 12:00] VITALS: BP 106/59
[2024-08-19 15:54] VITALS: BP 121/58
[2024-08-19 20:00] VITALS: BP 119/65
[2024-08-19] MEDS ORDERED: POTASSIUM CHLORIDE 20 MEQ TAB PO ONE (20:55)
[2024-08-20] VITALS: BP 115/52
[2024-08-20 07:06] LABS: BASO % 0.1 % (0.0-1.0); EOS % 0.3 % (1.0-4.0); HEMATOCRIT 27.5 % (37.0-47.0); MEAN CELL VOLUME 95.5 fl (81.0-99.0); MEAN CORPUSCULAR HGB 28.1 pg (27.0-31.0); MEAN CORPUSCULAR HGB CONC 29.5 g/dl (33.0-37.0); MEAN PLATELET VOLUME 10.2 fl (9.6-12.3); MONO # 1.3 10*3/uL (0.1-1.0); MONO % 8.3 % (3.0-9.0); NEUT # 13.5 10*3/uL (2.3-7.9); NEUT % 87.2 % (47.0-73.0); PLATELET COUNT AUTOMATED 272 10*3/uL (130-400); RED BLOOD COUNT 2.88 10*6/uL (4.10-5.10); RED CELL DISTRI WIDTH 14.9 % (0-14.5); WHITE BLOOD COUNT 15.4 10*3/uL (4.8-10.8)
[2024-08-20 07:10] LABS: POTASSIUM 3.4 mmol/L (3.4-5.1)
[2024-08-20 08:00] VITALS: BP 112/48
[2024-08-20 12:00] VITALS: BP 116/59
[2024-08-20 16:00] VITALS: BP 122/61
[2024-08-20 18:00] VITALS: BP 122/61
[2024-08-20 20:00] VITALS: BP 110/56
[2024-08-20] MEDS ORDERED: LORazepam 0.5 MG TAB PO PRN (22:40)
[2024-08-21] VITALS: BP 108/57
[2024-08-21 06:13] LABS: BASO % 0.1 % (0.0-1.0); EOS # 0.1 10*3/uL (0.0-0.4); EOS % 0.4 % (1.0-4.0); HEMATOCRIT 24.7 % (37.0-47.0); MEAN CELL VOLUME 94.6 fl (81.0-99.0); MEAN CORPUSCULAR HGB CONC 29.6 g/dl (33.0-37.0); MEAN PLATELET VOLUME 10.1 fl (9.6-12.3); MONO # 1.2 10*3/uL (0.1-1.0); MONO % 8.9 % (3.0-9.0); NEUT # 11.8 10*3/uL (2.3-7.9); PLATELET COUNT AUTOMATED 252 10*3/uL (130-400); RED BLOOD COUNT 2.61 10*6/uL (4.10-5.10); RED CELL DISTRI WIDTH 14.7 % (0-14.5); WHITE BLOOD COUNT 13.7 10*3/uL (4.8-10.8)
[2024-08-21 06:24] LABS: POTASSIUM 3.1 mmol/L (3.4-5.1)
[2024-08-21 08:00] VITALS: BP 119/55
[2024-08-21 11:48] VITALS: BP 106/50
[2024-08-21 16:00] VITALS: BP 108/46
[2024-08-21 20:00] VITALS: BP 148/58
[2024-08-21] MEDS ORDERED: Doxycycline Hyclate 100 MG CAP PO SCH (22:00)
[2024-08-22] VITALS: BP 125/71
[2024-08-22 06:16] LABS: POTASSIUM 3.3 mmol/L (3.4-5.1)
[2024-08-22 06:19] LABS: BASO % 0.1 % (0.0-1.0); EOS # 0.1 10*3/uL (0.0-0.4); EOS % 0.6 % (1.0-4.0); HEMATOCRIT 24.3 % (37.0-47.0); MEAN CELL VOLUME 95.3 fl (81.0-99.0); MEAN CORPUSCULAR HGB 27.8 pg (27.0-31.0); MEAN CORPUSCULAR HGB CONC 29.2 g/dl (33.0-37.0); MEAN PLATELET VOLUME 10.2 fl (9.6-12.3); NEUT # 10.8 10*3/uL (2.3-7.9); NEUT % 85.8 % (47.0-73.0); PLATELET COUNT AUTOMATED 266 10*3/uL (130-400); RED BLOOD COUNT 2.55 10*6/uL (4.10-5.10); RED CELL DISTRI WIDTH 14.9 % (0-14.5); WHITE BLOOD COUNT 12.5 10*3/uL (4.8-10.8)
[2024-08-22 08:00] VITALS: BP 102/42
[2024-08-22 12:00] VITALS: BP 108/50; BP 92/49
[2024-08-22] MEDS ORDERED: MUCUS RELIEF600 MG PO (12:43)
== END 2024-08-22 13:35 | DRG 720 ==
LOC: ED 14:22 → 4E 16:15 → EDHOLD 16:15 → 4E 20:27
PROVIDERS: Internal Medicine Critical Care Medicine; Nurse Practitioner Family; Registered Nurse; Student in an Organized Health Care Education/Training Program; ADMIT Student in an Organized Health Care Education/Training Program; ATTEND Student in an Organized Health Care Education/Training Program
PROC: 5A09357 Assistance with Respiratory Ventilation, Less than 24 Consecutive Hours, Continuous Positive Airway Pressure (ICD-10-PCS; 2024-08-07)
PROC: 5A0935A Assistance with Respiratory Ventilation, Less than 24 Consecutive Hours, High Flow/Velocity Cannula (ICD-10-PCS; 2024-08-07)
PROC: 30233N1 Transfusion of Nonautologous Red Blood Cells into Peripheral Vein, Percutaneous Approach (ICD-10-PCS; principal; 2024-08-09)
PROC: 5A09357 Assistance with Respiratory Ventilation, Less than 24 Consecutive Hours, Continuous Positive Airway Pressure (ICD-10-PCS; 2024-08-09)
PROC: 5A09357 Assistance with Respiratory Ventilation, Less than 24 Consecutive Hours, Continuous Positive Airway Pressure (ICD-10-PCS; 2024-08-10)
PROC: 5A09357 Assistance with Respiratory Ventilation, Less than 24 Consecutive Hours, Continuous Positive Airway Pressure (ICD-10-PCS; 2024-08-12)
PROC: 5A09357 Assistance with Respiratory Ventilation, Less than 24 Consecutive Hours, Continuous Positive Airway Pressure (ICD-10-PCS; 2024-08-13)
PROC: 5A09357 Assistance with Respiratory Ventilation, Less than 24 Consecutive Hours, Continuous Positive Airway Pressure (ICD-10-PCS; 2024-08-14)
PROC: 0B9C8ZX Drainage of Right Upper Lung Lobe, Via Natural or Artificial Opening Endoscopic, Diagnostic (ICD-10-PCS; 2024-08-14)
PROC: 0BC18ZZ Extirpation of Matter from Trachea, Via Natural or Artificial Opening Endoscopic (ICD-10-PCS; 2024-08-14)
PROC: 0BC98ZZ Extirpation of Matter from Lingula Bronchus, Via Natural or Artificial Opening Endoscopic (ICD-10-PCS; 2024-08-14)
PROC: 0BC48ZZ Extirpation of Matter from Right Upper Lobe Bronchus, Via Natural or Artificial Opening Endoscopic (ICD-10-PCS; 2024-08-14)
PROC: 0BC88ZZ Extirpation of Matter from Left Upper Lobe Bronchus, Via Natural or Artificial Opening Endoscopic (ICD-10-PCS; 2024-08-14)
PROC: 0BC58ZZ Extirpation of Matter from Right Middle Lobe Bronchus, Via Natural or Artificial Opening Endoscopic (ICD-10-PCS; 2024-08-14)
PROC: 0BC38ZZ Extirpation of Matter from Right Main Bronchus, Via Natural or Artificial Opening Endoscopic (ICD-10-PCS; 2024-08-14)
PROC: 0BC78ZZ Extirpation of Matter from Left Main Bronchus, Via Natural or Artificial Opening Endoscopic (ICD-10-PCS; 2024-08-14)
PROC: 0BC68ZZ Extirpation of Matter from Right Lower Lobe Bronchus, Via Natural or Artificial Opening Endoscopic (ICD-10-PCS; 2024-08-14)
PROC: 0BCB8ZZ Extirpation of Matter from Left Lower Lobe Bronchus, Via Natural or Artificial Opening Endoscopic (ICD-10-PCS; 2024-08-14)
PROC: 5A09357 Assistance with Respiratory Ventilation, Less than 24 Consecutive Hours, Continuous Positive Airway Pressure (ICD-10-PCS; 2024-08-15)
PROC: 5A09357 Assistance with Respiratory Ventilation, Less than 24 Consecutive Hours, Continuous Positive Airway Pressure (ICD-10-PCS; 2024-08-16)
PROC: 5A09357 Assistance with Respiratory Ventilation, Less than 24 Consecutive Hours, Continuous Positive Airway Pressure (ICD-10-PCS; 2024-08-17)
PROC: 5A09357 Assistance with Respiratory Ventilation, Less than 24 Consecutive Hours, Continuous Positive Airway Pressure (ICD-10-PCS; 2024-08-19)
PROC: 5A09357 Assistance with Respiratory Ventilation, Less than 24 Consecutive Hours, Continuous Positive Airway Pressure (ICD-10-PCS; 2024-08-21)
DX: A41.9 Sepsis, unspecified organism (principal); J96.22 Acute and chronic respiratory failure with hypercapnia; E43 Unspecified severe protein-calorie malnutrition; J15.69 Pneumonia due to other Gram-negative bacteria; T17.590A Other foreign object in bronchus causing asphyxiation, initial encounter; J96.21 Acute and chronic respiratory failure with hypoxia; E87.3 Alkalosis; E87.20 Acidosis, unspecified; L89.151 Pressure ulcer of sacral region, stage 1; F17.210 Nicotine dependence, cigarettes, uncomplicated; E55.9 Vitamin D deficiency, unspecified; R65.20 Severe sepsis without septic shock; J44.1 Chronic obstructive pulmonary disease with (acute) exacerbation; I50.32 Chronic diastolic (congestive) heart failure; Z68.1 Body mass index [BMI] 19.9 or less, adult; D53.9 Nutritional anemia, unspecified; E87.8 Other disorders of electrolyte and fluid balance, not elsewhere classified; R73.9 Hyperglycemia, unspecified; J44.0 Chronic obstructive pulmonary disease with (acute) lower respiratory infection; M81.8 Other osteoporosis without current pathological fracture; F41.1 Generalized anxiety disorder; W44.F9XA Other object of natural or organic material, entering into or through a natural orifice, initial encounter; Z88.1 Allergy status to other antibiotic agents; Z79.899 Other long term (current) drug therapy; Z98.891 History of uterine scar from previous surgery; Z71.6 Tobacco abuse counseling; Z90.49 Acquired absence of other specified parts of digestive tract; Z98.51 Tubal ligation status; Z80.0 Family history of malignant neoplasm of digestive organs; Z79.82 Long term (current) use of aspirin; Z79.51 Long term (current) use of inhaled steroids; Y93.89 Activity, other specified; Y92.89 Other specified places as the place of occurrence of the external cause; Y99.8 Other external cause status; Z91.198 Patient's noncompliance with other medical treatment and regimen for other reason

== ENCOUNTER → 2024-08-25 | Outpatient (CLI) | payer MEDICAID ==
[2024-08-25] VITALS (10 sets, daily range): BP systolic 102–121; BP diastolic 31–49
[~2024-08-25] MED LIST changes: +K-TAB20 MEQ PO; +SODIUM CHLORIDE 0.9% 500 ML IV ONE
== END | disposition home or self-care (01) ==
LOC: TRNFUSION 00:21
PROVIDERS: ATTEND Internal Medicine
DX: D64.9 Anemia, unspecified (principal); F41.1 Generalized anxiety disorder; J44.9 Chronic obstructive pulmonary disease, unspecified; F17.200 Nicotine dependence, unspecified, uncomplicated

== ENCOUNTER 2024-09-18 08:23 | Emergency (ER) | payer MEDICAID ==
[~2024-09-18] VITALS: Wt 39.5 kg
[~2024-09-18 08:23] MED LIST changes: +ATIVAN0.5 MG PO; +LORAZEPAM0.5 M1 PO; +MEGACE40 MG PO; +MILK OF MA400 MG/53 PO; +MIRALAX119 GM PO; +MIRTAZAPINE15 M2 PO; -SODIUM CHLORIDE 0.9% 500 ML IV ONE; +TYLENOL325 M2 PO; +ZITHROMAX500 MG PO
[2024-09-18 08:45] LABS: HEMATOCRIT 27.8 % (37.0-47.0); MEAN CELL VOLUME 93.3 fl (81.0-99.0); MEAN CORPUSCULAR HGB 27.2 pg (27.0-31.0); MEAN CORPUSCULAR HGB CONC 29.1 g/dl (33.0-37.0); MEAN PLATELET VOLUME 8.2 fl (9.6-12.3); NUCLEATED RED BLOOD CELL 0.2 % (0.0-0.0); PLATELET COUNT AUTOMATED 471 10*3/uL (130-400); RED BLOOD COUNT 2.98 10*6/uL (4.10-5.10); RED CELL DISTRI WIDTH 15.8 % (0-14.5); WHITE BLOOD COUNT 12.2 10*3/uL (4.8-10.8)
[2024-09-18 08:45] LABS: BILIRUBIN Negative (Negative); BLOOD Negative (Negative); CLARITY Clear (Clear); COLOR Yellow (Yellow); GLUCOSE Negative (Negative); KETONE Negative (Negative); LEUKO ESTERASE Negative (Negative); NITRITE Negative (Negative); PH 6.5 (4.5-8.0); SPECIFIC GRAVITY 1.015 (1.001-1.030); UROBILINOGEN 0.2 E.U./dl (0.0-1.0)
[2024-09-18 08:46] LABS: MANUAL DIFF REFLEX YES
[2024-09-18 09:05] LABS: POTASSIUM 3.2 mmol/L (3.4-5.1)
[2024-09-18] MEDS ORDERED: POTASSIUM CHLORIDE 20 MEQ TAB PO ONE (09:10)
[2024-09-18 09:17] LABS: BACTERIA TRACE; YEAST TRACE
[2024-09-18 09:25] LABS: PLATELET SUFFICIENCY HIGH (NORMAL); TOTAL CELLS COUNTED 100 #CELLS
[2024-09-18] MEDS ORDERED: SODIUM CHLORIDE 0.9% 1,000 ML IV ONE ×2 (10:00)
[2024-09-18 11:32] VITALS: BP 103/48
== END 2024-09-18 13:09 | disposition home or self-care (01) ==
LOC: ED 08:23
PROVIDERS: Emergency Medicine
DX: R53.1 Weakness (principal); E87.6 Hypokalemia; E78.5 Hyperlipidemia, unspecified; I95.9 Hypotension, unspecified; I11.0 Hypertensive heart disease with heart failure; I50.9 Heart failure, unspecified; J43.9 Emphysema, unspecified; N17.9 Acute kidney failure, unspecified; F17.200 Nicotine dependence, unspecified, uncomplicated; Z88.1 Allergy status to other antibiotic agents; Z90.49 Acquired absence of other specified parts of digestive tract; Z98.890 Other specified postprocedural states

== ENCOUNTER 2024-09-28 11:59 | Emergency (ER) | payer MEDICAID ==
[2024-09-28] VITALS (14 sets, daily range): BP systolic 92–123; BP diastolic 51–62
[2024-09-28 12:50] LABS: BASO % 0.2 % (0.0-1.0); EOS # 0.2 10*3/uL (0.0-0.4); EOS % 1.3 % (1.0-4.0); HEMATOCRIT 25.6 % (37.0-47.0); MEAN CELL VOLUME 95.5 fl (81.0-99.0); MEAN CORPUSCULAR HGB 26.9 pg (27.0-31.0); MEAN CORPUSCULAR HGB CONC 28.1 g/dl (33.0-37.0); MEAN PLATELET VOLUME 9.1 fl (9.6-12.3); MONO # 1.3 10*3/uL (0.1-1.0); MONO % 8.1 % (3.0-9.0); NEUT # 13.7 10*3/uL (2.3-7.9); NEUT % 82.7 % (47.0-73.0); PLATELET COUNT AUTOMATED 382 10*3/uL (130-400); RED BLOOD COUNT 2.68 10*6/uL (4.10-5.10); RED CELL DISTRI WIDTH 16.8 % (0-14.5); WHITE BLOOD COUNT 16.5 10*3/uL (4.8-10.8)
[2024-09-28] MEDS ORDERED: SODIUM CHLORIDE 0.9% 500 ML IV ONE (14:12)
== END 2024-09-28 19:39 | disposition home or self-care (01) ==
LOC: ED 11:59
PROVIDERS: Nurse Practitioner Family
DX: D64.9 Anemia, unspecified (principal); J44.9 Chronic obstructive pulmonary disease, unspecified; E87.6 Hypokalemia; I50.9 Heart failure, unspecified; R06.89 Other abnormalities of breathing; E87.1 Hypo-osmolality and hyponatremia; E78.5 Hyperlipidemia, unspecified; F17.200 Nicotine dependence, unspecified, uncomplicated; Z88.1 Allergy status to other antibiotic agents; Z90.49 Acquired absence of other specified parts of digestive tract; Z98.890 Other specified postprocedural states

== ENCOUNTER 2024-10-15 07:48 | Inpatient (IN) | payer MEDICAID ==
[~2024-10-15] VITALS: Ht 152.4 cm; Wt 42.7 kg
[~2024-10-15 07:48] MED LIST changes: +ASPIRIN81 M1 PO; +MUCINEX ER600 MG PO; +PROTONIX40 MG PO
[2024-10-15 07:54] VITALS: BP 133/52
[2024-10-15] MEDS ORDERED: Albuterol Sulfate 2.5 MG/3 ML VIAL NEB ONE (07:55)
[2024-10-15] MEDS ORDERED: methylPREDNISolone sod succ 125 MG VIAL IV ONE (07:55)
[2024-10-15] MEDS ORDERED: SODIUM CHLORIDE 0.9% 500 ML IV ONE (08:00)
[2024-10-15 08:12] LABS: BASO % 0.2 % (0.0-1.0); EOS # 0.9 10*3/uL (0.0-0.4); EOS % 7.2 % (1.0-4.0); HEMATOCRIT 33.1 % (37.0-47.0); MEAN CELL VOLUME 97.4 fl (81.0-99.0); MEAN CORPUSCULAR HGB 28.2 pg (27.0-31.0); MEAN PLATELET VOLUME 8.3 fl (9.6-12.3); MONO # 1.3 10*3/uL (0.1-1.0); MONO % 10.2 % (3.0-9.0); NEUT # 9.6 10*3/uL (2.3-7.9); PLATELET COUNT AUTOMATED 337 10*3/uL (130-400)
[2024-10-15] MEDS ORDERED: FLORASTOR250 MG PO (08:29)
[2024-10-15 08:31] LABS: BUN 29 mg/dl (9-23); CHLORIDE 107 mmol/L (98-107); POTASSIUM 4.3 mmol/L (3.4-5.1)
[2024-10-15 08:46] LABS: ABG BASE EXCESS -1.3 mmol/L (-2.0-3.0); ARTERIAL BLOOD GAS PO2 80.3 mmHg (83.0-108.0)
[2024-10-15 08:53] LABS: ARTERIAL BLOOD GAS PH 7.2 (7.350-7.450)
[2024-10-15] MEDS ORDERED: Vancomycin Hydrochloride 250 ML IV ONE (08:55)
[2024-10-15] MEDS ORDERED: CEFEPIME HCL IN DEXTROSE 5 % 50 ML IV ONE (09:00)
[2024-10-15] MEDS ORDERED: LORazepam 0.5 MG TAB PO ONE (10:35)
[2024-10-15] MEDS ORDERED: Vancomycin Hydrochloride 1,000 MG in SODIUM CHLORIDE 0.9% 250 ML IV SCH (10:40)
[2024-10-15] MEDS ORDERED: SODIUM CHLORIDE 0.9% 1,000 ML IV ONE (11:00)
[2024-10-15] MEDS ORDERED: Ondansetron Hydrochloride 4 MG/2 ML VIAL IV PRN (11:20)
[2024-10-15] MEDS ORDERED: BISACODYL 5 MG TAB PO PRN (11:20)
[2024-10-15] MEDS ORDERED: ACETAMINOPHEN 325 MG TAB PO PRN (11:20)
[2024-10-15 11:30] VITALS: BP 128/56
[2024-10-15] MEDS ORDERED: LORazepam 0.5 MG TAB PO PRN (11:35)
[2024-10-15] MEDS ORDERED: Albuterol Sulf/Ipratropium 3 ML VIAL NEB SCH (12:00)
[2024-10-15 12:08] LABS: ABG BASE EXCESS -0.8 mmol/L (-2.0-3.0); ABG O2 SATURATION 92.5 % (94.0-98.0); ARTERIAL BLOOD GAS PH 7.264 (7.350-7.450); ARTERIAL BLOOD GAS PO2 60.1 mmHg (83.0-108.0)
[2024-10-15 15:00] VITALS: BP 120/61
[2024-10-15 16:00] VITALS: BP 120/61
[2024-10-15 16:53] LABS: ABG BASE EXCESS 0.6 mmol/L (-2.0-3.0); ABG O2 SATURATION 96.4 % (94.0-98.0); ARTERIAL BLOOD GAS PH 7.305 (7.350-7.450); ARTERIAL BLOOD GAS PO2 79.4 mmHg (83.0-108.0)
[2024-10-15 20:00] VITALS: BP 110/52
[2024-10-15] MEDS ORDERED: Cefepime Hydrochloride 1 GM in SODIUM CHLORIDE 0.9% 50 ML IV SCH (21:00)
[2024-10-15] MEDS ORDERED: LORazepam 0.5 MG TAB PO SCH (22:00)
[2024-10-15] MEDS ORDERED: Mirtazapine 15 MG TAB PO SCH (22:00)
[2024-10-15] MEDS ORDERED: GUAIFENESIN 600 MG TAB ER PO SCH (22:00)
[2024-10-15] MEDS ORDERED: methylPREDNISolone sod succ 125 MG VIAL IV SCH (22:00)
[2024-10-15] MEDS ORDERED: FOAM BANDAGE 1 EACH BANDAGE T ONE (22:22)
[2024-10-16] VITALS: BP 127/60
[2024-10-16 05:40] LABS: ALKALINE PHOSPHATASE 69 U/L (46-116); BUN 33 mg/dl (9-23); CHLORIDE 104 mmol/L (98-107); POTASSIUM 4.6 mmol/L (3.4-5.1); SGPT/ALT 27 U/L (5-49); TOTAL PROTEIN 5.5 gm/dL (6.0-8.0)
[2024-10-16] MEDS ORDERED: Pantoprazole Sodium 40 MG TAB PO SCH (06:00)
[2024-10-16 06:33] LABS: HEMATOCRIT 30.7 % (37.0-47.0); MEAN CELL VOLUME 97.2 fl (81.0-99.0); MEAN CORPUSCULAR HGB 28.5 pg (27.0-31.0); MEAN CORPUSCULAR HGB CONC 29.3 g/dl (33.0-37.0); MEAN PLATELET VOLUME 8.9 fl (9.6-12.3); PLATELET COUNT AUTOMATED 330 10*3/uL (130-400); RED BLOOD COUNT 3.16 10*6/uL (4.10-5.10); RED CELL DISTRI WIDTH 16.6 % (0-14.5)
[2024-10-16 06:41] LABS: MANUAL DIFF REFLEX YES
[2024-10-16 07:18] LABS: TOTAL CELLS COUNTED 100 #CELLS
[2024-10-16 07:19] LABS: PLATELET SUFFICIENCY NORMAL (NORMAL)
[2024-10-16 08:00] VITALS: BP 116/77
[2024-10-16] MEDS ORDERED: ASPIRIN ENTERIC COATED 81 MG TAB PO SCH (10:00)
[2024-10-16] MEDS ORDERED: Vancomycin Hydrochloride 750 MG in SODIUM CHLORIDE 0.9% 250 ML IV SCH (10:00)
[2024-10-16] MEDS ORDERED: Cholecalciferol 2,000 UNIT TABLET (50 MCG) PO SCH (10:00)
[2024-10-16] MEDS ORDERED: ATORVASTATIN CALCIUM 40 MG TABLET PO SCH (10:00)
[2024-10-16] MEDS ORDERED: Enoxaparin Sodium 40 MG/0.4 ML SYR SC SCH (10:00)
[2024-10-16] MEDS ORDERED: Nicotine 21 MG PATCH T SCH (10:00)
[2024-10-16 12:00] VITALS: BP 156/65
[2024-10-16] MEDS ORDERED: FUROSEMIDE 20 MG/2 ML VIAL IV SCH (14:20)
[2024-10-16] MEDS ORDERED: FOAM BANDAGE HEEL T ONE (14:57)
[2024-10-16] MEDS ORDERED: CHAIR CUSHION DEVICE ONE (14:58)
[2024-10-16] MEDS ORDERED: HEEL PROTECTOR DEVICE ONE (14:58)
[2024-10-16] MEDS ORDERED: FOAM BANDAGE 1 EACH BANDAGE T ONE (15:13)
[2024-10-16 16:00] VITALS: BP 109/46
[2024-10-16 20:00] VITALS: BP 125/57
[2024-10-16] MEDS ORDERED: SILVER SULFADIAZINE 25 GM TUBE T SCH (22:00)
[2024-10-16] MEDS ORDERED: Lidocaine Hydrochloride 3% 30 GM CREAM T SCH (22:00)
[2024-10-16] MEDS ORDERED: methylPREDNISolone sod succ 40 MG VIAL IV SCH (22:00)
[2024-10-17] VITALS: BP 140/66
[2024-10-17 05:47] LABS: ABG BASE EXCESS 4.1 mmol/L (-2.0-3.0); ABG O2 SATURATION 92.6 % (94.0-98.0); ARTERIAL BLOOD GAS PH 7.338 (7.350-7.450); ARTERIAL BLOOD GAS PO2 59.4 mmHg (83.0-108.0)
[2024-10-17 08:00] VITALS: BP 119/55
[2024-10-17 12:00] VITALS: BP 114/58
[2024-10-17 16:00] VITALS: BP 118/62
[2024-10-17 20:00] VITALS: BP 141/61
[2024-10-17 21:07] LABS: BILIRUBIN Negative (Negative); BLOOD Negative (Negative); CLARITY Cloudy (Clear); COLOR Yellow (Yellow); GLUCOSE Negative (Negative); KETONE Negative (Negative); LEUKO ESTERASE Negative (Negative); NITRITE Negative (Negative); PH 5.5 (4.5-8.0); SPECIFIC GRAVITY 1.015 (1.001-1.030); UROBILINOGEN 0.2 E.U./dl (0.0-1.0)
[2024-10-17 21:35] LABS: BACTERIA 2+; YEAST 1+
[2024-10-18] VITALS: BP 121/59
[2024-10-18 06:25] LABS: BUN 33 mg/dl (9-23); CHLORIDE 98 mmol/L (98-107); POTASSIUM 3.1 mmol/L (3.4-5.1)
[2024-10-18 06:31] LABS: BASO % 0.1 % (0.0-1.0); EOS # 0.1 10*3/uL (0.0-0.4); EOS % 0.7 % (1.0-4.0); HEMATOCRIT 30.6 % (37.0-47.0); MEAN CELL VOLUME 95.3 fl (81.0-99.0); MEAN CORPUSCULAR HGB 28.3 pg (27.0-31.0); MEAN CORPUSCULAR HGB CONC 29.7 g/dl (33.0-37.0); MEAN PLATELET VOLUME 8.8 fl (9.6-12.3); MONO # 0.9 10*3/uL (0.1-1.0); MONO % 12.7 % (3.0-9.0); NEUT # 5.3 10*3/uL (2.3-7.9); NEUT % 78.9 % (47.0-73.0); NUCLEATED RED BLOOD CELL 0.4 % (0.0-0.0); PLATELET COUNT AUTOMATED 266 10*3/uL (130-400); RED BLOOD COUNT 3.21 10*6/uL (4.10-5.10); RED CELL DISTRI WIDTH 16.4 % (0-14.5); WHITE BLOOD COUNT 6.8 10*3/uL (4.8-10.8)
[2024-10-18 08:00] VITALS: BP 128/61
[2024-10-18] MEDS ORDERED: POTASSIUM CHLORIDE 20 MEQ TAB PO ONE (08:40)
[2024-10-18 09:58] LABS: ABG O2 SATURATION 97.8 % (94.0-98.0); ARTERIAL BLOOD GAS PH 7.342 (7.350-7.450); ARTERIAL BLOOD GAS PO2 101.5 mmHg (83.0-108.0)
[2024-10-18] MEDS ORDERED: methylPREDNISolone sod succ 40 MG VIAL IV SCH (10:00)
[2024-10-18 10:01] LABS: ABG BASE EXCESS 12.4 mmol/L (-2.0-3.0)
[2024-10-18 12:00] VITALS: BP 121/70
[2024-10-18] MEDS ORDERED: Vancomycin Hydrochloride 500 MG in SODIUM CHLORIDE 0.9% 100 ML IV SCH (12:00)
[2024-10-18 16:00] VITALS: BP 129/66
[2024-10-18] MEDS ORDERED: POTASSIUM CHLORIDE IN WATER 100 ML IV SCH (18:00)
[2024-10-18 20:00] VITALS: BP 108/49
[2024-10-18] MEDS ORDERED: CEFEPIME HCL IN DEXTROSE 5 % 50 ML IV SCH (21:00)
[2024-10-19] VITALS: BP 136/57
[2024-10-19 07:25] LABS: BASO % 0.1 % (0.0-1.0); EOS # 0.1 10*3/uL (0.0-0.4); HEMATOCRIT 30.8 % (37.0-47.0); MEAN CORPUSCULAR HGB 28.9 pg (27.0-31.0); MEAN CORPUSCULAR HGB CONC 31.5 g/dl (33.0-37.0); MEAN PLATELET VOLUME 9.2 fl (9.6-12.3); MONO # 1.1 10*3/uL (0.1-1.0); MONO % 12.8 % (3.0-9.0); NEUT # 6.4 10*3/uL (2.3-7.9); NEUT % 77.7 % (47.0-73.0); NUCLEATED RED BLOOD CELL 0.2 % (0.0-0.0); PLATELET COUNT AUTOMATED 246 10*3/uL (130-400); RED BLOOD COUNT 3.36 10*6/uL (4.10-5.10); RED CELL DISTRI WIDTH 16.3 % (0-14.5); WHITE BLOOD COUNT 8.3 10*3/uL (4.8-10.8)
[2024-10-19 07:26] LABS: MEAN CELL VOLUME 91.7 fl (81.0-99.0)
[2024-10-19 07:48] LABS: BUN 40 mg/dl (9-23); CHLORIDE 95 mmol/L (98-107); POTASSIUM 3.8 mmol/L (3.4-5.1)
[2024-10-19 08:00] VITALS: BP 122/57
[2024-10-19 12:00] VITALS: BP 134/69
[2024-10-19 16:00] VITALS: BP 129/74
[2024-10-19 20:00] VITALS: BP 122/77
[2024-10-20] VITALS: BP 124/73
[2024-10-20 08:00] VITALS: BP 150/74
[2024-10-20] MEDS ORDERED: FOAM BANDAGE 1 EACH BANDAGE T ONE (11:40)
[2024-10-20 12:00] VITALS: BP 130/74
[2024-10-20 16:00] VITALS: BP 100/63
[2024-10-20 20:00] VITALS: BP 134/62
[2024-10-21] VITALS: BP 138/55
[2024-10-21 08:00] VITALS: BP 133/73
[2024-10-21] MEDS ORDERED: Cholecalciferol 2,000 UNIT TABLET (50 MCG) PO SCH (10:00)
[2024-10-21] MEDS ORDERED: FOAM BANDAGE 5X5 T ONE (10:43)
[2024-10-21] MEDS ORDERED: FOAM BANDAGE 1 EACH BANDAGE T ONE (10:43)
[2024-10-21] MEDS ORDERED: HYDROGEL WOUND DRESSING T ONE (10:46)
[2024-10-21] MEDS ORDERED: SILICONE CONTACT LAYER WOUND DRESSING (VERSATEL) ONE (10:47)
[2024-10-21] MEDS ORDERED: LASIX40 MG PO (11:23)
== END 2024-10-21 12:54 | DRG 720 ==
LOC: ED 07:48 → 4E 09:04 → EDHOLD 09:04 → 4E 16:04
PROVIDERS: Emergency Medicine; Internal Medicine Critical Care Medicine; Registered Nurse; Student in an Organized Health Care Education/Training Program; ADMIT Internal Medicine; ATTEND Internal Medicine
PROC: 5A09357 Assistance with Respiratory Ventilation, Less than 24 Consecutive Hours, Continuous Positive Airway Pressure (ICD-10-PCS; principal; 2024-10-15)
PROC: 5A09357 Assistance with Respiratory Ventilation, Less than 24 Consecutive Hours, Continuous Positive Airway Pressure (ICD-10-PCS; 2024-10-18)
PROC: 5A09457 Assistance with Respiratory Ventilation, 24-96 Consecutive Hours, Continuous Positive Airway Pressure (ICD-10-PCS; 2024-10-19)
DX: A41.9 Sepsis, unspecified organism (principal); J96.22 Acute and chronic respiratory failure with hypercapnia; E43 Unspecified severe protein-calorie malnutrition; I50.31 Acute diastolic (congestive) heart failure; J96.21 Acute and chronic respiratory failure with hypoxia; L89.152 Pressure ulcer of sacral region, stage 2; E87.3 Alkalosis; J15.9 Unspecified bacterial pneumonia; R65.20 Severe sepsis without septic shock; R54 Age-related physical debility; J44.0 Chronic obstructive pulmonary disease with (acute) lower respiratory infection; J98.11 Atelectasis; J21.0 Acute bronchiolitis due to respiratory syncytial virus; J44.1 Chronic obstructive pulmonary disease with (acute) exacerbation; E78.01 Familial hypercholesterolemia; F17.210 Nicotine dependence, cigarettes, uncomplicated; M81.0 Age-related osteoporosis without current pathological fracture; Z88.1 Allergy status to other antibiotic agents; Z90.49 Acquired absence of other specified parts of digestive tract; Z98.891 History of uterine scar from previous surgery; Z68.1 Body mass index [BMI] 19.9 or less, adult; Z79.82 Long term (current) use of aspirin; Z79.51 Long term (current) use of inhaled steroids; Z79.899 Other long term (current) drug therapy; Z91.199 Patient's noncompliance with other medical treatment and regimen due to unspecified reason